=== PATIENT | female | born 1960 | race Caucasian/White ===

== ENCOUNTER 2021-03-03 10:07 | Outpatient (CLI) | payer OTHER, SELFPAY ==
--- NOTE | ~2021-03-03 | CT_ITS ---
EXAMINATION: CT abdomen pelvis wo con DATE: 03/03/2021 10:39 INDICATION: Unspecified abdominal pain. TECHNIQUE: Computed tomography (CT) of the abdomen and pelvis was performed without intravenous contr ast. Automated exposure control and iterative reconstruction technique were employed. The dose-length product was 1504.31 mGy-cm. COMPARISON: None FINDINGS: Calcified right lower lobe nodule consistent with old granulomatous disease. Heart size is normal. At herosclerotic coronary artery calcification. No pericardial or pleural effusion. Moderate-sized slidi ng-type hiatal hernia. Gallbladder is not visualized and likely surgically absent. Liver, spleen, hastings creas, bilateral adrenal glands and kidneys are normal. The appendix is not visualized. No pericecal inflammatory change to suggest acute appendicitis. There is some fatty infiltration of the wall of th e colon most prominent at the cecum. There are few scattered colonic diverticula without adjacent inf lammatory change to suggest diverticulitis. No bowel obstruction. Bladder is normal. The uterus is no t identified and has likely been surgically resected. Bilateral adnexa are unremarkable. No free intr aperitoneal gas or fluid. No pathologically enlarged abdominal or pelvic lymphadenopathy. Mild lumbar levocurvature. 3 mm anterolisthesis L4 on L5 with associated mild disc height loss and severe bilate ral facet osteoarthritis at this level. IMPRESSION: 1. No acute intra-abdominal/pelvic process. 2. Moderate-sized sliding-type hiatal hernia. Reviewed, dictated and finalized at location A.
== END 2021-03-03 10:08 | disposition home or self-care (01) ==
PROVIDERS: PCP Family Medicine; Visit Provider Nurse Practitioner Family
DX: R10.10 Upper abdominal pain, unspecified (principal); R10.30 Lower abdominal pain, unspecified; R19.8 Other specified symptoms and signs involving the digestive system and abdomen
CPT/HCPCS: 74176

== ENCOUNTER 2021-03-15 00:49 | Day surgery (SDC) | payer OTHER, SELFPAY ==
[2021-02-28 14:28] VITALS: BMI 48.2
--- NOTE | 2021-03-14 09:58 | WPDANESEPPF ---
Anes - Initial Pre Proc Eval Procedure: Operation Date: 03/15/21 11:15 Proposed Procedures p Esophagogastroduodenoscopy & Colonoscopy - Ang Padgett MD Date/Time: 03/14/21 09:58 Surgeon: Ang Padgett MD Pre Op Diagnosis: peptic ulcer, FORTINO Patient Data Age: 60 Gender: F Height: 1.63 m Weight: 127.27 kg Allergies Allergy/AdvReac Type Severity Reaction Status Date / Time No Known Allergies Allergy Verified 03/15/21 10:22 Home Medications Medication Instructions Recorded Confirmed Type cholecalciferol (vitamin D3) 25 3,000 unit PO DAILY 06/16/19 03/02/21 History mcg (1,000 unit) capsule levothyroxine 75 mcg tablet 75 mcg PO DAILY #30 tablet 11/22/20 03/02/21 Rx cyanocobalamin (vitamin B-12) 1,000 mcg SUB-Q MONTHLY #3 each 01/29/21 03/02/21 Rx 1,000 mcg/mL injection kit cyclobenzaprine 10 mg tablet 10 mg PO TID PRN #90 tablet 02/08/21 03/02/21 Rx ferrous sulfate, dried 160 mg (50 160 mg PO DAILY 02/09/21 03/02/21 History mg iron) tablet,extended release syringe with needle 3 mL 23 x 1 #20 ea 02/09/21 03/02/21 Rx escitalopram oxalate [Lexapro] 75 mg PO DAILY 02/28/21 03/02/21 History magnesium oxide 400 mg PO DAILY 02/28/21 03/02/21 History omega-3 fatty acids [Fish Oil 2,000 mg PO DAILY 02/28/21 03/02/21 History Concentrate] omeprazole 20 mg PO BID 02/28/21 03/02/21 History quetiapine [Seroquel] 25 mg PO DAILY 02/28/21 03/02/21 History Patient hx anesthesia problems: none Family hx anesthesia problems: none Results Review: All pre-operative results and documents have been reviewed as part of the pre-operative evaluation. [facility]LY [facility] Past Medical History Medical History (Updated 03/14/21 @ 09:59 by Jacques Sierra DO) Abdominal pain Abnormal bowel habits Breast cancer screening by mammogram Chronic depression Dysphagia Fibromyalgia Hyperlipidemia Hypersomnia Hypothyroidism, unspecified Insomnia Iron deficiency anemia, unspecified Labs on 02/11/2021 with iron 34, 7% saturation, and ferritin 4 with hemoglobin 11.1 Irritable bowel syndrome with constipation and diarrhea Lower abdominal pain Peptic ulcer disease Polyp of colon Tobacco use disorder, continuous Upper abdominal pain Surgical History Surgical History (Updated 03/14/21 @ 09:59 by Jacques Sierra DO) History of appendectomy History of cholecystectomy Family History Family History Father Diabetes mellitus, Onset Age: 79 Cerebrovascular accident, Onset Age: 79 Sibling Family history of suicide, Onset Age: 42 Mother Acute myocardial infarction, Onset Age: 79 Grandparent Acute myocardial infarction, Onset Age: 80 Social History Social History Years smoked: 45 Smoking status: Current every day smoker Tobacco type: cigarettes Alcohol intake: current Alcohol use details: socially Substance use: never Substance use type: does not use Living arrangements: with family Spiritual care concerns: No Anes - Eval Final PreProcedure Day of Procedure 03/14/21 09:58 Patient weight: morbidly obese Heart: regular rate and rhythm Lungs: clear to auscultation and normal air movement Airway: Mallampati scale class II Neurological: alert and oriented Last oral intake: >/= 8 hours ASA classification: III Emergent: no Anesthetic plan: proceed Anesthesia type and monitoring: general GIVS and standard monitoring Results Review: All pre-operative results and documents have been reviewed as part of the pre-operative evaluation. Informed Consent: The patient's anesthetic plan and its attendant risks and benefits were discussed with the patient/family/POA. Questions were solicited and answers provided to the satisfaction of the patient/family/POA.
[2021-03-15 10:23] VITALS: BP 152/102; PULSE 87; RESP 20; TEMP 37.2; O2SAT 96
[2021-03-15] MEDS: LACTATED RINGERS 1,000 ML 150 ML IV CONT (10:38)
--- NOTE | 2021-03-15 10:54 | PM.HPGS ---
History of Present Illness History of Present Illness Consent: Risks, benefits, and alternatives have been discussed and questions answered. Patient agrees to proceed with procedure. Chief complaint: peptic ulcer, FORTINO Narrative: Mahi Mcgovern is a 60 year old female with lower abdomen and intermittent blood in stools (h/o hemorrhoids), also GERD on omeprazole bid and alternating constipation and diarrhea. Recent CT scan only hiatal hernia, also has FORTINO. Had egd and colonoscopy about 8 years ago. Review of Systems Constitutional: Constitutional: Denies headache(s) and Denies weakness Eyes: Eyes: Denies blurry vision ENT: Reports Normal hearing present, Denies headache(s) and Denies neck pain Cardiovascular: Cardiovascular: Denies chest pain and Denies dyspnea Respiratory: Respiratory: Denies dyspnea Gastrointestinal: Gastrointestinal: Reports no additional gastrointestinal complaints Genitourinary: Genitourinary: Denies dysuria Musculoskeletal: Musculoskeletal: Denies neck pain Integumentary/Breasts: Skin/Breast: Denies dry skin Neurologic: Reports Normal hearing present, Denies headache(s) and Denies weakness Psychiatric: Psychiatric: Denies anxiety Endocrine: Endocrine: Denies change in body appearance Hematologic/Lymphatic: Hematologic/Lymphatic: Denies easy bleeding Allergic/Immunologic: Allergic/Immunologic: Denies urticaria PMFSH Past Medical History Medical History (Updated 03/14/21 @ 09:59 by Jacques Sierra DO) Abdominal pain Abnormal bowel habits Breast cancer screening by mammogram Chronic depression Dysphagia Fibromyalgia Hyperlipidemia Hypersomnia Hypothyroidism, unspecified Insomnia Iron deficiency anemia, unspecified Labs on 02/11/2021 with iron 34, 7% saturation, and ferritin 4 with hemoglobin 11.1 Irritable bowel syndrome with constipation and diarrhea Lower abdominal pain Peptic ulcer disease Polyp of colon Tobacco use disorder, continuous Upper abdominal pain Surgical History Surgical History (Updated 03/14/21 @ 09:59 by Jacques Sierra DO) History of appendectomy History of cholecystectomy Family History Family History Father Diabetes mellitus, Onset Age: 79 Cerebrovascular accident, Onset Age: 79 Sibling Family history of suicide, Onset Age: 42 Mother Acute myocardial infarction, Onset Age: 79 Grandparent Acute myocardial infarction, Onset Age: 80 Social History Social History Years smoked: 45 Smoking status: Current every day smoker Tobacco type: cigarettes Alcohol intake: current Alcohol use details: socially Substance use: never Substance use type: does not use Living arrangements: with family Spiritual care concerns: No Meds Home Medications and Allergies Home Medications Medication Instructions Recorded Confirmed Type cholecalciferol (vitamin D3) 25 3,000 unit PO DAILY 06/16/19 03/02/21 History mcg (1,000 unit) capsule levothyroxine 75 mcg tablet 75 mcg PO DAILY #30 tablet 11/22/20 03/02/21 Rx cyanocobalamin (vitamin B-12) 1,000 mcg SUB-Q MONTHLY #3 each 01/29/21 03/02/21 Rx 1,000 mcg/mL injection kit cyclobenzaprine 10 mg tablet 10 mg PO TID PRN #90 tablet 02/08/21 03/02/21 Rx ferrous sulfate, dried 160 mg (50 160 mg PO DAILY 02/09/21 03/02/21 History mg iron) tablet,extended release syringe with needle 3 mL 23 x 1 #20 ea 02/09/21 03/02/21 Rx escitalopram oxalate [Lexapro] 75 mg PO DAILY 02/28/21 03/02/21 History magnesium oxide 400 mg PO DAILY 02/28/21 03/02/21 History omega-3 fatty acids [Fish Oil 2,000 mg PO DAILY 02/28/21 03/02/21 History Concentrate] omeprazole 20 mg PO BID 02/28/21 03/02/21 History quetiapine [Seroquel] 25 mg PO DAILY 02/28/21 03/02/21 History Allergies Allergy/AdvReac Type Severity Reaction Status Date / Time No
[2021-03-15] MEDS: BENZOCAINE (*SP) 60 ML SPRAY CAN (HURRICAINE) 1 SPRAY MUCOUS MEM (10:58)
[2021-03-15 11:35] VITALS: BP 147/83; PULSE 79; RESP 26; O2SAT 98
[2021-03-15 11:45] VITALS: BP 147/90; PULSE 83; RESP 24; O2SAT 95
[2021-03-15 11:55] VITALS: BP 130/96; PULSE 74; RESP 22; O2SAT 100
--- NOTE | 2021-03-15 12:28 | SUR.PHASEII ---
1200 patient ready to go home, awaiting Dr. Magana to see patient post procedure
== END 2021-03-15 12:25 | disposition home or self-care (01) ==
PROVIDERS: PCP Family Medicine; Visit Provider Internal Medicine Gastroenterology
PROC: 0DJ08ZZ Inspection of Upper Intestinal Tract, Via Natural or Artificial Opening Endoscopic (ICD-10-PCS; CPT 43235; principal; 2021-03-15 11:15)
DX: R10.30 Lower abdominal pain, unspecified (principal); K44.9 Diaphragmatic hernia without obstruction or gangrene; R19.7 Diarrhea, unspecified; K59.00 Constipation, unspecified; K62.89 Other specified diseases of anus and rectum; K64.4 Residual hemorrhoidal skin tags; K21.00 Gastro-esophageal reflux disease with esophagitis, without bleeding; K63.5 Polyp of colon; Z87.11 Personal history of peptic ulcer disease; K29.60 Other gastritis without bleeding; D50.9 Iron deficiency anemia, unspecified; E03.9 Hypothyroidism, unspecified; F32.9 Major depressive disorder, single episode, unspecified; M79.7 Fibromyalgia; E78.5 Hyperlipidemia, unspecified; G47.10 Hypersomnia, unspecified; K58.2 Mixed irritable bowel syndrome; F17.210 Nicotine dependence, cigarettes, uncomplicated; E66.01 Morbid (severe) obesity due to excess calories; Z68.43 Body mass index [BMI] 50.0-59.9, adult
CPT/HCPCS: 45385; 43239; 88305; J2001; J2704; J7120

== ENCOUNTER 2021-05-16 09:16 | Outpatient (RCR) | payer OTHER, SELFPAY ==
[2021-05-16] MEDS: FAMOTIDINE 20 MG TABLET PO (15:52)
[2021-05-16] MEDS: diphenhydrAMINE HCl CAP 25 MG CAPSULE PO (15:53)
[2021-05-16] MEDS: ACETAMINOPHEN 325 MG TABLET 650 MG PO (15:53)
[2021-05-16 15:54] VITALS: BP 148/98; PULSE 87; RESP 18; O2SAT 97
[2021-05-16 16:52] VITALS: BP 142/97
== END 2021-05-16 17:00 | disposition home or self-care (01) ==
LOC: AMCINF 09:16
PROVIDERS: PCP Family Medicine; Visit Provider Internal Medicine Hematology & Oncology
DX: U07.1 COVID-19 (principal)
CPT/HCPCS: A9270; M0243; Q0244

== ENCOUNTER → 2021-07-25 15:34 | Outpatient (CLI) | payer OTHER, SELFPAY ==
--- NOTE | ~2021-07-25 | XR_ITS ---
EXAMINATION: XR wrist RT min 3V DATE: 07/25/2021 15:58 INDICATION: Right wrist pain. TECHNIQUE: 4 views of right wrist were obtained. COMPARISON: None. FINDINGS: Bone alignment is normal. No fracture. There is severe osteoarthritis of first carpometacar pal joint with loose bodies. IMPRESSION: 1. Severe osteoarthritis of first carpometacarpal joint with loose bodies. Reviewed, dictated and finalized at location A. 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
--- NOTE | ~2021-07-25 | XR_ITS ---
EXAMINATION: XR shoulder LT min 2V EXAM DATE: 07/25/2021 15:57 INDICATION: M25.512 - Pain in left shoulder/fell Jul 15 . TECHNIQUE: The following left shoulder projections obtained: frontal projection with internal rotatio n, frontal projection with external rotation, Grashey, and axillary (4+ views). There is no prior st udy for comparison. FINDINGS: There is possible subacute closed posttraumatic nondisplaced left clavicular shaft fracture at its distal 3rd. No angulation. Mild acromioclavicular joint osteoarthritis. IMPRESSION: Left clavicular shaft contoured disruption appearance suspicious for subacute nondisplac ed fracture. Reviewed, dictated and finalized at location A. 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
== END ==
LOC: EXPTRAD 15:37
PROVIDERS: PCP Family Medicine; Visit Provider Family Medicine
DX: M25.531 Pain in right wrist (principal); M19.012 Primary osteoarthritis, left shoulder; M24.08 Loose body, other site; M18.11 Unilateral primary osteoarthritis of first carpometacarpal joint, right hand
CPT/HCPCS: 73030; 73110

== ENCOUNTER 2021-08-03 08:29 | Outpatient (CLI) | payer OTHER, SELFPAY ==
--- NOTE | ~2021-08-03 | XR_ITS ---
EXAMINATION: XR barium swallow modified DATE: 08/03/2021 09:11 INDICATION: Vomiting while eating. TECHNIQUE: The patient was given barium-containing material of multiple consistencies to swallow by t ahsan speech pathologist while I performed fluoroscopy. Fluoroscopy exposure time was 1.2 minutes minute s. The number of fluoroscopy images saved to the PACS was 1. Dose-area product was 1.057 Gy-cm^2. FINDINGS: There was flash laryngeal penetration. No aspiration. IMPRESSION: 1. Flash laryngeal penetration. No aspiration. 2. Please refer to the speech therapy report for recommendations. Reviewed, dictated and finalized at location A.
--- NOTE | 2021-08-03 10:57 | STOPEVAL ---
MODIFIED BARIUM SWALLOW EVALUATION: Thank you for referring Mahi Mcgovern to [facility].? Attending Provider: Farhan Irene MD fax: [phone] Modified Barium Swallow Evaluation Recent Swallowing History Reports Dysphagia Yes: food gets stuck Onset of Dysphagia few weeks History of Dysphagia No Other Related History recent intubation Other Factors Impacting Dysphagia None History of Pneumonia Yes: from recent vomit aspiration Reported Difficult Consistencies Solids Intake Method Prior to Swallow Oral Evaluation Diet Prior to Swallow Evaluation Regular, Level 7 Liquid Consistency Prior to Swallow Thin (0) Evaluation Consistency Thin Uncontrolled 2 Method of Presentation Straw Oral Preparatory Symptoms None Oral Phase Symptoms None Pharyngeal Phase Symptoms None Severity of Vallecular Residue None - 0% No Residue Severity of Pyriform Sinus Residue None - 0% No Residue 8 Point Laryngeal Penetration-Aspiration Material Does Not Enter Airway Scale Cervical/Esophageal Symptoms None Thin Uncontrolled 1 Method of Presentation Cup Oral Preparatory Symptoms None Oral Phase Symptoms None Pharyngeal Phase Symptoms Within Functional Limits, Laryngeal Penetration Severity of Vallecular Residue None - 0% No Residue Severity of Pyriform Sinus Residue None - 0% No Residue 8 Point Laryngeal Penetration-Aspiration Material Enters the Airway, Scale Remains Above Vocal Folds, is Ejected Cervical/Esophageal Symptoms None Solid Consistency Method of Presentation Spoon Oral Preparatory Symptoms None Oral Phase Symptoms None Pharyngeal Phase Symptoms None Severity of Vallecular Residue None - 0% No Residue Severity of Pyriform Sinus Residue None - 0% No Residue 8 Point Laryngeal Penetration-Aspiration Material Does Not Enter Airway Scale Cervical/Esophageal Symptoms None Mixed Consistency Method of Presentation Spoon Oral Preparatory Symptoms None Oral Phase Symptoms None Pharyngeal Phase Symptoms None Severity of Vallecular Residue None - 0% No Residue Severity of Pyriform Sinus Residue None - 0% No Residue 8 Point Laryngeal Penetration-Aspiration Material Does Not Enter Airway Scale Cervical/Esophageal Symptoms None Pureed Consistency Method of Presentation Spoon Oral Preparatory Symptoms None Oral Phase Symptoms None Pharyngeal Phase Symptoms None Severity of Vallecular Residue None - 0% No Residue Severity of Pyriform Sinus Residue None - 0% No Residue 8 Point Laryngeal Penetration-Aspiration Material Does Not Enter Airway Sc
== END 2021-08-03 08:30 | disposition home or self-care (01) ==
PROVIDERS: PCP Family Medicine; Visit Provider Family Medicine
DX: R13.10 Dysphagia, unspecified (principal)
CPT/HCPCS: 92611

== ENCOUNTER 2021-08-07 08:34 | Outpatient (CLI) | payer OTHER, SELFPAY ==
--- NOTE | 2021-08-08 11:01 | P.NEURO_ITS ---
Neurology EEG Report General Information Date of Study: 08/07/21 TEST eeg DIAGNOSIS syncope with collapse and aspiration CONDITION OF RECORDING awake, drowsy and sleep EEG NUMBER [id number] CLINICAL HISTORY patient reported ,she lost consciousness about 3 weeks ago. Was feeling fine and went in to bathroom, subsequently woke up 2 days later in the hospital. Was told she aspirated and was on a vent for 2 days. EEG DESCRIPTION basic resting occipital frequency consists of low to medium voltage 9 to 11 hertz per 2nd alpha admixed with low-voltage 15 to 18 hertz per 2nd beta. Low- voltage beta activity seen diffusely during drowsiness. Bilateral symmetrical sleep activity seen, during sleep. photic stimulation produced normal drive. Non paroxysmal. Nonfocal. Nonlateralizing. IMPRESSION Normal record
== END 2021-08-07 08:35 | disposition home or self-care (01) ==
PROVIDERS: PCP Family Medicine; Visit Provider Family Medicine
DX: R55 Syncope and collapse (principal)
CPT/HCPCS: 95816

== ENCOUNTER 2021-08-08 12:03 | Outpatient (CLI) | payer OTHER, SELFPAY ==
--- NOTE | ~2021-08-08 | MR_ITS ---
EXAMINATION: MR brain/brain stem wo/w con EXAM DATE: 08/08/2021 12:48 INDICATION: R55 - Syncope and collapse. TECHNIQUE: Magnetic resonance imaging (MRI) of the brain/brain stem obtained without contrast. Sagit reece T1, axial diffusion, gradient echo (T2*), T1, T2, FLAIR sequences obtained. Patient was then inj ected with 20 cc intravenous Multihance contrast. Axial and coronal postcontrast T1 weighted sequence s obtained. There is no prior study for comparison. FINDINGS: There are no areas of restricted diffusion to suggest acute infarction. There is no acute hemorrhage seen on the T2*, a hemosiderin sensitive sequence. No intraparenchymal brain mass. The ve ntricles are normal in size. There are no extra-axial collections. Flow voids are seen in the cereb ral arteries on the T2-weighted sequences consistent with their expected patency. The orbits are unr emarkable. Soft tissue is unremarkable. There are no areas of abnormal enhancement on the postcont rast images. IMPRESSION: Unremarkable brain MRI examination. Reviewed, dictated and finalized at location G.
[2021-08-08 12:36] LABS: Estimated Glomerular Filt Rate > 60
== END 2021-08-08 12:04 ==
LOC: MICIMG 12:04
PROVIDERS: PCP Family Medicine; Visit Provider Family Medicine
DX: R55 Syncope and collapse (principal)
CPT/HCPCS: 70553; A9577

== ENCOUNTER → 2021-10-24 09:23 | Outpatient (CLI) | payer MEDICARE, SELFPAY ==
--- NOTE | ~2021-10-24 | CT_ITS ---
CT OF RIGHT HAND EXAMINATION: CT hand RT wo con DATE: 10/24/2021 09:41 INDICATION: Right wrist pain. TECHNIQUE: Computed tomography (CT) of the right hand was performed without intravenous contrast. Aut omated exposure control and iterative reconstruction technique were employed. The dose-length product was 115.49 mGy-cm. COMPARISON: X-ray right wrist 07/25/2021. FINDINGS: Limitations: None Bones: Mildly decreased mineralization. Moderate narrowing and subchondral sclerosis with severe oste ophytosis at the trapeziometacarpal joint. Joint space narrowing and sclerosis in the interphalangeal joints of the fingers. No acute fracture or dislocation. Soft Tissues:The soft tissues appear within normal limits. No evidence of mass or fluid collection. The flexor and extensor tendons appear intact. Fluid: No significant joint fluid fluid. IMPRESSION: Severe right trapeziometacarpal joint osteoarthritis. Mild-moderate osteoarthritic change in the righ t fingers. Reviewed, dictated and finalized at location K. IMPRESSION: Severe right trapeziometacarpal joint osteoarthritis. Mild-moderate osteoarthri tic change in the right fingers.
== END ==
PROVIDERS: PCP Family Medicine; Visit Provider Nurse Practitioner
DX: M19.031 Primary osteoarthritis, right wrist (principal)
CPT/HCPCS: 73200

== ENCOUNTER → 2022-01-16 10:03 | Outpatient (CLI) | payer OTHER, SELFPAY ==
--- NOTE | ~2022-01-16 | XR_ITS ---
XR chest 2V DATE: 01/16/2022 10:21 INDICATION: Cough for 6 months. Ex-smoker. TECHNIQUE: Frontal and lateral views COMPARISON: None FINDINGS: Normal heart size. No hilar or mediastinal enlargement. There is old pulmonary granulomatou s disease. No pulmonary infiltrate or consolidation, pleural effusion or pulmonary vascular congestio n or pneumothorax is detected. Mild to moderate hiatal hernia is suggested. IMPRESSION: No active cardiopulmonary disease Hiatal hernia Reviewed, dictated and finalized at location B.
== END ==
PROVIDERS: PCP Family Medicine; Visit Provider Nurse Practitioner Family
DX: R05.9 Cough, unspecified (principal); K44.9 Diaphragmatic hernia without obstruction or gangrene
CPT/HCPCS: 71046

== ENCOUNTER 2022-02-02 13:34 | Outpatient (CLI) | payer OTHER, SELFPAY ==
--- NOTE | 2022-02-05 14:13 | WPDPFTINT ---
PFT Procedure Performed PFT Procedure Performed Spirometry with Pre/Post Bronchodilator Plethysmography (Lung Vol) Diffusing Cap (DLCO) Flow Vol Loop PFT Interpretation This is a pulmonary function test with pre and post-bronchodilator spirometry, plethysmography and diffusing capacity. The test was performed and results interpreted in accordance with the 2019 and 2005 ATS/ERS Task Force guidelines respectively using the Global Lung Function Initiative-2012 reference equations. Patient demonstrated good effort and cooperation. Reproducibility criteria were met. The quality of the pre bronchodilator spirometry maneuver was Grade A and post bronchodilator spirometry maneuver was Grade A. Findings: Spirometry: The contour the inspiratory and expiratory flow tracing are normal. The pre bronchodilator FVC is 3.48, 108% predicted. The pre bronchodilator FEV1 is 2.76 L, 109% predicted. The pre bronchodilator FEV1: FVC ratio is 79% predicted. The post bronchodilator FVC is 3.66 L, representing a 5% increase. The post bronchodilator FEV1 is 2.95 L, representing a 7% increase. The post bronchodilator FEV1: FVC ratio was 81%. Plethysmography: The total lung capacity is 6.10 L, 120% predicted. Functional residual capacity is 2.90 L, 101% predicted. The residual volume is 2.58 L, 131% predicted. Diffusion capacity: The diffusion capacity unadjusted for hemoglobin and carboxyhemoglobin is 18.1, 83% predicted. The diffusing capacity adjusted for alveolar volume is 3.72, 83% predicted. Impression: The spirometry is normal without evidence of an obstructive abnormality. There is no significant improvement after inhaling a single dose of albuterol. The lung volumes are normal. The diffusing capacity is normal. There are no prior studies for comparison
== END 2022-02-02 13:35 | disposition home or self-care (01) ==
LOC: ANHPFT 13:36
PROVIDERS: PCP Family Medicine; Visit Provider Family Medicine
DX: R06.00 Dyspnea, unspecified (principal); R05.9 Cough, unspecified; R07.9 Chest pain, unspecified; Z86.16 Personal history of COVID-19; Z87.891 Personal history of nicotine dependence
CPT/HCPCS: 94060; 94726; 94729

== ENCOUNTER 2022-02-08 07:37 | Outpatient (CLI) | payer OTHER, SELFPAY ==
--- NOTE | 2022-02-08 07:47 | ECHO_ITS ---
Patient Info Name: Mahi Mcgovern Age: 61 years : 1960 Gender: Female Ht: 64 in Wt: 300 lbs BSA: 2.56 m2 HR: 77 bpm BP: 193 / 107 mmHg Technical Quality: Good Exam Date: 02/08/2022 8:22 AM Exam Location: [facility] Patient Status: Outpatient Admit Date: 02/08/2022 Staff Ordering Physician: Viridiana Stark NP Central Supply Worker: Scott Araujo RDCS, RT Attending Provider: Farhan Irene MD Exam Type: CA echo doppler color flow Study Info Indications R07.9 - Chest pain, unspecified Complete two-dimensional, color flow and Doppler transthoracic echocardiogram is performed. Strain analysis performed. Summary 1. Complete two-dimensional, color flow and Doppler transthoracic echocardiogram is performed. 2. Left ventricular chamber dimension is normal. 3. There is mild-moderate concentric increased left ventricular wall thickness. 4. Left ventricular systolic function is normal, estimated at 60-65%. 5. The left ventricular diastolic function is grade I diastolic dysfunction. 6. E/e' 5 is not elevated. 7. Global longitudinal strain is abnormal at -14.7%. 8. There is trace tricuspid valve regurgitation. Left Ventricle E/e' 5 is not elevated. Global longitudinal strain is abnormal at -14.7%. There is mild-moderate concentric increased left ventricular wall thickness. Left ventricular chamber dimension is normal. Left ventricular systolic function is normal, estimated at 60-65%. The left ventricular diastolic function is grade I diastolic dysfunction. Right Ventricle Right ventricular systolic function is normal and with normal TAPSE 2.2 cm. Right ventricular chamber dimension is normal. Left Atria Left atrial chamber dimension is normal. Right Atria Right atrial chamber dimension is normal. Aortic Valve The aortic valve is trileaflet. There is no aortic valve stenosis. There is no aortic valve regurgitation. Pulmonic Valve There is no pulmonic regurgitation. Mitral Valve There is no mitral valve stenosis. There is no mitral valve regurgitation. Tricuspid Valve There is trace tricuspid valve regurgitation. RVSP is not calculated due to an inadequate TR jet. Pericardium/Pleural There is no pericardial effusion. Inferior Vena Cava Normal inferior vena cava with >50% collapse upon inspiration consistent with normal right atrial pressure, 5 mmHg. Aorta The aortic root size at the sinus of Valsalva is normal. Left Ventricular Outflow Tract Name Value Normal LVOT 2D LVOT Diameter 2.1 cm LVOT Doppler LVOT Peak Gradient 4 mmHg LVOT Mean Gradient 2 mmHg LVOT VTI 17 cm LVOT VTI/AV VTI Ratio 0.7 LVOT Stroke Volume 60 ml LVOT CO 4.8 l/min LVOT CI 1.9 l/min/m2 Mitral Valve Name Value Normal
--- NOTE | 2022-02-08 07:47 | ECG_ITS ---
Measurements Intervals [place] Rate: 75 P: 51 ND: 163 QRS: 6 QRSD: 89 T: 14 QT: 382 QTc: 427 Interpretive Statements SINUS RHYTHM INFERIOR INFARCT, AGE INDETERMINATE ABNORMAL ECG NO PREVIOUS ECG AVAILABLE FOR COMPARISON Electronically Signed On 02-08-2022 8:59:13 CDT by John Kay D.O.
--- NOTE | 2022-02-08 07:47 | EST_ITS ---
Patient Info Name: Mahi Mcgovern Age: 61 years : 1960 Gender: Female Ht: 64 in Wt: 300 lbs BSA: 2.56 m2 Exam Date: 02/08/2022 9:06 AM Exam Location: [facility] Stress Patient Status: Outpatient Admit Date: 02/08/2022 Staff Ordering Physician: Viridiana Stark NP Attending Provider: Farhan Irene MD Exercise Technologist: China Gonzalez RDCS Exercise Physician: John Kay DO Exam Type: CA stress test treadmill Study Info Indications R42 - Dizziness and giddiness R07.9 - Chest pain, unspecified A treadmill exercise stress test was performed. Summary 1. 1. Negative Curt exercise stress test for ischemic ST changes by ECG criteria. 2. 2. Reduced functional capacity, achieving 6.5 METs of workload. 3. 3. Appropriate HR response to exercise. 4. 4. Appropriate HR recovery at 1 minute post exercise. 5. 5. No imaging with stress testing. 6. 6. Patient informed of the above results. Protocol: Curt Stress ECG Details Stage: REST Duration (min): 1 min : 9 sec Speed (mph): 0.0 Grade (%): 0 HR (bpm): 77 SBP (mmHg): 134 DBP (mmHg): 92 METS: --- Stage: REST Duration (min): 13 min : 54 sec Speed (mph): 0.0 Grade (%): 0 HR (bpm): 81 SBP (mmHg): 134 DBP (mmHg): 92 METS: --- Stage: STAGE 1 Duration (min): 1 min : 0 sec Speed (mph): 1.7 Grade (%): 10 HR (bpm): 110 SBP (mmHg): 134 DBP (mmHg): 92 METS: --- Stage: STAGE 1 Duration (min): 2 min : 0 sec Speed (mph): 1.7 Grade (%): 10 HR (bpm): 119 SBP (mmHg): 134 DBP (mmHg): 92 METS: --- Stage: STAGE 1 Duration (min): 3 min : 0 sec Speed (mph): 1.7 Grade (%): 10 HR (bpm): 125 SBP (mmHg): 170 DBP (mmHg): 108 METS: --- Stage: STAGE 2 Duration (min): 1 min : 0 sec Speed (mph): 2.5 Grade (%): 12 HR (bpm): 131 SBP (mmHg): 170 DBP (mmHg): 108 METS: --- Stage: STAGE 2 Duration (min): 1 min : 3 sec Speed (mph): 2.5 Grade (%): 12 HR (bpm): 131 SBP (mmHg): 170 DBP (mmHg): 108 METS: --- Stage: RECOVERY Duration (min): 0 min : 56 sec Speed (mph): 0.0 Grade (%): 0 HR (bpm): 125 SBP (mmHg): 158 DBP (mmHg): 89 METS: --- Stage: RECOVERY Duration (min): 1 min : 56 sec Speed (mph): 0.0 Grade (%): 0 HR (bpm): 108 SBP (mmHg): 158 DBP (mmHg): 89 METS: --- Stage: RECOVERY Duration (min): 2 min : 56 sec Speed (mph): 0.0 Grade (%): 0 HR (bpm): 101 SBP (mmHg): 181 DBP (mmHg): 84 METS: --- Stage: RECOVERY Duration (min): 3 min : 56 sec Speed (mph): 0.0 Grade (%): 0 HR (bpm): 94 SBP (mmHg): 181 DBP (mmHg): 84 METS: --- Stage: RECOVERY Duration (min): 4 min : 56 sec Speed (mph): 0.0 Grade (%): 0 HR (bpm): 93 SBP (mmHg): 149 DBP (mmHg): 62 METS: --- Stage: RECOVERY Du
== END 2022-02-08 07:38 | disposition home or self-care (01) ==
LOC: ANHCARD 07:39
PROVIDERS: PCP Family Medicine; Visit Provider Family Medicine
DX: R07.9 Chest pain, unspecified (principal); R06.00 Dyspnea, unspecified; R42 Dizziness and giddiness; R68.89 Other general symptoms and signs; R94.31 Abnormal electrocardiogram [ECG] [EKG]
CPT/HCPCS: 93005; 93017; 93306

== ENCOUNTER 2022-03-13 07:55 | Outpatient (CLI) | payer OTHER, SELFPAY ==
--- NOTE | ~2022-03-13 | NM_ITS ---
EXAMINATION: NM pulmonary perfusion DATE: 03/13/2022 09:24 INDICATION: Dyspnea on exertion TECHNIQUE: 5.5 mCi Tc-99m MAA by intravenous route. Scintigraphic images of the chest were obtained. COMPARISON: FINDINGS: There is relatively homogeneous perfusion throughout the lungs. No discrete perfusion defects identi fied. IMPRESSION: 1. Low probability for pulmonary embolism. Reviewed, dictated and finalized at location A.
--- NOTE | ~2022-03-13 | XR_ITS ---
EXAMINATION: XR chest 2V 03/13/2022 09:26 INDICATION: Shortness of breath PROCEDURE: PA and lateral views of the chest COMPARISON: 01/16/2022 FINDINGS: The lungs are clear. The cardiomediastinal silhouette is within normal limits. There are no pleural effusions. There is no pneumothorax suspected. Moderate size hiatal hernia. There are ca lcified granulomas in the right lung base. IMPRESSION: 1: NO ACUTE CARDIOPULMONARY DISEASE. Reviewed, dictated and finalized at location B.
--- NOTE | 2022-03-13 09:46 | PCRCNOTE ---
Patient arrived for methacholine challenge testing, but had taken Advair 24 hours prior to test time, this medication must be held minimum 36 hours. Rescheduled testing for 03-19-22 at 1300
== END 2022-03-13 07:56 | disposition home or self-care (01) ==
LOC: ANHPFT 07:57
PROVIDERS: PCP Family Medicine; Visit Provider Internal Medicine Pulmonary Disease
DX: R06.00 Dyspnea, unspecified (principal)
CPT/HCPCS: 71046; 78580; A9540; J7674

== ENCOUNTER 2022-03-19 12:34 | Outpatient (CLI) | payer OTHER, SELFPAY ==
--- NOTE | 2022-03-20 10:11 | WPDMETH ---
Methacholine Procedure Perform Procedure Performed Methacholine Challenge Methacholine Challenge Methacholine Challenge: Methacholine challenge testing was performed with progressively increasing doses of nebulized methacholine according to ATS/ERS 2017 guidelines. Following administration of 29.03 mcg of nebulized methacholine (level 3 provocative dose), the measured FEV1 decreased by approximately 30% from the baseline measurement. Post administration of nebulized short-acting bronchodilator, the FEV1 returned back to near baseline value. Impression: Positive methacholine challenge testing. Mild airway hyperresponsiveness.
== END 2022-03-19 12:35 | disposition home or self-care (01) ==
LOC: ANHPFT 12:37
PROVIDERS: PCP Family Medicine; Visit Provider Internal Medicine Pulmonary Disease
DX: R06.02 Shortness of breath (principal); R94.2 Abnormal results of pulmonary function studies
CPT/HCPCS: 94070; J7674

== ENCOUNTER 2022-05-22 10:08 | Outpatient (CLI) | payer OTHER, SELFPAY ==
--- NOTE | ~2022-05-22 | CT_ITS ---
EXAMINATION:CT chest high resolution wo oh DATE: 05/22/2022 10:28 INDICATION: Dyspnea. Personal history of COVID-19 pneumonia. TECHNIQUE: Computed tomography (CT) of the chest was performed without intravenous contrast. Automate d exposure control and iterative reconstruction technique were employed. The dose-length product (DLP ) was 759.52 mGy-cm. COMPARISON: Chest 2 views 03/13/2022 FINDINGS: A calcified right lung nodule and calcified right hilar lymph nodes are consistent with old granulomatous disease. There is no bronchiectasis or honeycombing. There is mild peripheral septal t hickening in the right posterior costophrenic angle. The heart size is normal. There are coronary art jad calcifications. No pericardial effusion. There is a moderate-sized sliding hiatal hernia. There i s mild thoracic spondylosis. IMPRESSION: 1. Mild atelectasis versus chronic interstitial lung disease in right posterior costophrenic angle. 2. Moderate-sized sliding hiatal hernia. Reviewed, dictated and finalized at location A. ERVATION COORDINATOR
== END 2022-05-22 10:09 ==
LOC: MICIMG 10:10
PROVIDERS: PCP Family Medicine; Visit Provider Internal Medicine Pulmonary Disease
DX: R06.00 Dyspnea, unspecified (principal); J69.0 Pneumonitis due to inhalation of food and vomit; Z86.16 Personal history of COVID-19; R91.8 Other nonspecific abnormal finding of lung field; K44.9 Diaphragmatic hernia without obstruction or gangrene
CPT/HCPCS: 71250

== ENCOUNTER 2022-07-16 12:30 | Outpatient (RCR) | payer OTHER, SELFPAY ==
--- NOTE | 2022-07-09 16:11 | STOPEVAL1 ---
Assessment and note entered by Purvi Pedroza, ACCOUNTING POLICY CONSULTANT Evaluation Information Assessment Status Evaluation Diagnosis Dysphonia Onset 07/11 Subjective Information The patient reports that she was told her vocal cords were swollen and her vocal box compensated and now I need speech. Patient reports she had an episode of COVID in 03/09, and then again in 05/09. She stated that on July 15, she had been out with friends and had two drinks; she then passed out in a bathroom and at some point, vomited with possible aspiration. She was then ventilated on the way to the emergency room and remained ventilated on Saturday. Patient reports now she feels that she sounds raspy all the time and I didn't used to sound like. Patient stated that she was having difficulty breathing and approximately six months ago, she was diagnosed with COVID induced asthma and is using Advair 500 one puff twice a day and also a rescue inhaler prior to exertion such as walking through a store. Reported Pain Level Pain Score 0: Self Report Assessment ST Clinical Summary VOICE EVALUATION This patient was seen for a Voice Evaluation at the request of her physician. Patient see above notes for history and complaints. Patient was presented with a variety of voice evaluation tasks. In general skills were judged to be within normal limits however patient was noted to have a mildly raspy vocal quality today. Additionally, her general vocal loudness during tasks was judged to be slightly higher than expected. Average loudness using sound pressure level meter per voice roni in the Speech Therapy room is judged to be 70-74 decibels, range; patient generally produced speech between 76-78 decibels indicating that it is possible she is over-exerting vocal cords during speech that may be contributing to her vocal cord dysfunction. Pitch ranges were judged to be within normal limits. Patient will be seen once weekly, at her request secondary to work constraints, for four weeks to introduce and instru
--- NOTE | 2022-07-23 11:34 | PCSTNOTE ---
The patient treatment was not able to be completed on 07/23 due to illness. Will plan to continue treatment per plan of care.
--- NOTE | 2022-07-30 08:17 | PCSTNOTE ---
Patient again cancelled, assumed for continued illness.
--- NOTE | 2022-08-06 08:09 | PCSTNOTE ---
Patient cancelled a third time due to illness; this is the week that a re-assessment and progress note would occur; therapist will contact patient to discuss discharge at this time.
--- NOTE | 2022-08-07 16:39 | PCSTNOTE ---
Patient reported that she has suffered esophagitis and has started on several new medications to coat the inside of her esophagus. She will not get scoped until September 10 and wants to wait on direct Speech Therapy until after scoped and when esophageal symptoms subside. She was instructed to ask her physician for a resume order before returning to Speech Therapy.
--- NOTE | 2022-08-13 15:12 | STOPDC ---
Assessment and note entered by Purvi Pedroza, PROCESS COORDINATOR
== END 2022-08-22 10:04 | disposition home or self-care (01) ==
LOC: ANHST 12:30
PROVIDERS: PCP Family Medicine; Visit Provider Otolaryngology
DX: R49.0 Dysphonia (principal)
CPT/HCPCS: 92507; 92524

== ENCOUNTER 2022-07-28 11:43 | Emergency (ER) | payer OTHER, SELFPAY ==
[2022-07-28] VITALS (28 sets, daily range): BP systolic 124–155; BP diastolic 50–91; PULSE 77–115; RESP 15–36; TEMP 36.4; O2SAT 90–100
--- NOTE | ~2022-07-28 | CT_ITS ---
EXAMINATION: CT chest abdomen pelvis w con DATE: 07/28/2022 13:46 INDICATION: Epigastric pain. TECHNIQUE: Computed tomography (CT) of the chest, abdomen, and pelvis was performed with 100 mL Omnip aque-350 intravenous contrast. Automated exposure control and iterative reconstruction technique were employed. The dose-length product was 1963.19 mGy-cm. COMPARISON: Chest CT dated 05/22/[address] abdomen and pelvis dated 03/03/2021 FINDINGS: CHEST CT: Calcified right lower lobe nodule and calcified right hilar and mediastinal lymph nodes consistent wi th old granulomatous disease. No pneumonia, pulmonary edema, pleural effusion or pneumothorax. Heart size is normal. Atherosclerotic coronary artery calcific lesion. No pericardial effusion. Vasculature is normal in caliber with no dissection. No pathologically enlarged thoracic lymphadenopathy. Modera te-sized sliding-type hiatal hernia. There is edematous wall thickening in the mid to distal esophagu s suggestive of reflux esophagitis. Bones are unremarkable. ABDOMEN/PELVIS CT: Gallbladder is nonvisualized and likely surgically absent. The liver, spleen, pancreas, bilateral adr enal glands and kidneys are normal. The appendix is not visualized. There are a few scattered colonic diverticula without adjacent inflammatory change to suggest diverticulitis. No bowel obstruction. Bl adder is normal. The uterus is not identified and has likely been surgically resected. Bilateral adne xa are unremarkable. No free intraperitoneal gas or fluid. No pathologically enlarged abdominal or pe lvic lymphadenopathy. Mild lumbar levocurvature. 3 mm anterolisthesis L4 on L5 with associated mild d isc height loss and severe bilateral facet osteoarthritis at this level. IMPRESSION: 1. Moderate-sized sliding-type hiatal hernia with edematous wall thickening in the mid to distal esop hagus consistent with esophagitis most likely related to reflux. 2. No acute cardiopulmonary disease or acute intra-abdominal/pelvic process. Reviewed, dictated and finalized at location A. OMER SERVICE SALES ASSOCIATE IMPRESSION: 1. Moderate-sized sliding-type hiatal hernia with edematous wall thickening in the mid to distal esophagus consistent with esophagitis most likely related to reflux. 2. No acute cardiopulmonary disease or acute intra-abdominal/pelvic process.
--- NOTE | ~2022-07-28 | XR_ITS ---
EXAMINATION: XR chest 2V DATE: 07/28/2022 13:13 INDICATION: Epigastric pain and esophageal spasm TECHNIQUE: PA and lateral views of the chest were obtained. COMPARISON: Chest radiograph dated 03/13/[address] dated 05/22/2022 FINDINGS: Prominent calcified right lower lobe nodule along with calcified right hilar and mediastinal lymph no rod consistent with old granulomatous disease. No other airspace opacities, pulmonary edema, pleural effusion or pneumothorax. Size is normal. Gas within a moderate-sized hiatal hernia. Mild thoracic sp ondylosis. IMPRESSION: 1. No acute cardiopulmonary disease. 2. Moderate sized hiatal hernia. Reviewed, dictated and finalized at location A. AGE SPECIALIST
--- NOTE | 2022-07-28 12:04 | PC.NURSE ---
Dr. Hayes at bedside to assess pt.
--- NOTE | 2022-07-28 12:10 | ED.GENADULT ---
HPI - General Adult General Chief complaint: Unspecified Stated complaint: PAIN AFTER TAKING BIG DRINK OF WATER Time Seen by Provider: 07/28/22 11:46 History of Present Illness HPI narrative: 61-year-old female presented to the emergency department for evaluation of epigastric and esophageal pain. Patient reports when she woke up this morning to take her morning medication she had a large drink of water and has since had epigastric and esophageal pain. Patient is able to handle her own secretions and does have intermittent pain with swallowing. Patient attempted to drink water in the emergency department and had onset of esophageal pain. Patient denies any shortness of breath. Patient denies any nausea vomiting diarrhea. Related Data Home Medications Medication Instructions Recorded Confirmed cholecalciferol (vitamin D3) 25 3,000 unit PO DAILY 06/16/19 07/19/22 mcg (1,000 unit) capsule omega-3 fatty acids 1,000 mg 2,000 mg PO DAILY 02/28/21 07/19/22 capsule (Fish Oil Concentrate) calcium polycarbophil 625 mg 1,250 mg PO BID 07/19/22 07/19/22 tablet (FiberCon) ferrous sulfate 325 mg (65 mg 325 mg PO DAILY 07/19/22 07/19/22 iron) tablet,delayed release magnesium oxide 500 mg capsule 500 mg PO BID PRN constipation 07/19/22 07/19/22 Allergies Allergy/AdvReac Type Severity Reaction Status Date / Time No Known Allergies Allergy Verified 07/28/22 12:10 Review of Systems Review of Systems: CONSTITUTIONAL: Denies fever, chills, or sweats. EYES: Denies visual changes, redness, or discharge. ENT: Denies rhinorrhea, congestion, sore throat, or otalgia. CARDIOVASCULAR: Denies chest pain, palpitations, or edema. RESPIRATORY: Denies cough or dyspnea. GASTROINTESTINAL: See HPI GENITOURINARY: Denies dysuria or hematuria. SKIN: Denies rash or itching. MUSCULOSKELETAL: Denies back pain, joint pain, or myalgia. NEUROLOGIC: Denies headache, numbness, or weakness. [facility] Past Medical History Medical History (Updated 07/28/22 @ 14:25 by Rick Hayes MD) Abdominal pain Abnormal bowel habits Abnormal fasting glucose (01/16/22) fasting glucose 106 with hemoglobin A1c 5.7 on 01/16/2022. Anemia Aspiration pneumonia (07/15/21) Breast cancer screening by mammogram Chest pain Exercise stress test on 02/08/2022 was negative for ischemia. Transesophageal echocardiogram on 02/08/2022 with LVH and grade 1 diastolic dysfunction. Chronic depression Cough COVID-19 positive rapid test 05/12/2021 COVID-19 long hauler manifesting chronic dyspnea (~05/2021) Dizziness Dysphagia modified barium swallow was normal 08/03/2021 Dyspnea Normal pulmonary function test on 02/02/2022. Fatigue Fibromyalgia History of COVID-19 History of tobacco abuse Hyperlipidemia total cholesterol 208, HDL 66, triglycerides 134, LDL 117 on 01/16/2022. Hypersomnia Hypothyroidism, unspecified TSH 5.03 with free T4 1.0 on 01/16/2022. Insomnia Iron deficiency anemia, unspecified Labs on 02/11/2021 with iron 34, 7% saturation, and ferritin 4 with hemoglobin 11.1. Iron low at 34 with 7% saturation and ferritin 6 on 01/16/2022. Irritable bowel syndrome with constipation and diarrhea Left shoulder pain Lower abdominal pain Morbid obesity with BMI of 50.0-59.9, adult Muscle cramps Peptic ulcer disease History of peptic ulcer disease with normal EGD on 03/15/2021 with 4 cm hiatal hernia. Biopsies obtained Polyp of colon (03/15/21) 12 mm polyp of the cecum on colonoscopy with Dr. Castillo 03/15/2021 with recheck in 3 years. External hemorrhoids noted. Right wrist pain Screening for diabetes mellitus Syncope and collapse (07/15/21) EEG on 08/07/2021 was normal. No seizure activity. MRI of the brain on 08/08/2021 was normal. Thyroid disorder Tobacco use disorder, continuous Patient quit smoking 2021. Ulcers of both great toes Upper abdominal pain Urinary frequency Surgical History Surgical History (Reviewed 06/25/22 @ 09:38 by Jany Ferguson
[2022-07-28] MEDS: NITROGLYCERIN SL 0.4 MG TABLET SUBLINGUAL (12:35)
[2022-07-28] MEDS: HYDROmorphone HCL INJ (*CRX) 1 MG/ML SYR 0.5 MG IV PUSH (12:36)
[2022-07-28] MEDS: BELLADONNA ALK/PHENOB ELIX 10 ML, MAG HYDROX/ALUMINUM HYD/SIMETH 30 ML, LIDOCAINE HCL 2... PO (12:37)
[2022-07-28 12:50] LABS: Basophils Absolute Auto 0.1 K/mm3 (0.0-0.1); Basophils Percent Auto 0.8 % (0.2-1.2); Eosinophils Absolute Auto 0.2 K/mm3 (0-0.3); Eosinophils Percent Auto 1.6 % (0-4.4); Hematocrit 29.1 % (37.0-47.0); Hemoglobin 7.9 g/dL (12.0-15.0); Immature Granulocyte Absolute 0.06 K/mm3 (0.00-0.031); Immature Granulocyte Percent A 0.5 % (0-0.5); Lymphocytes Absolute Auto 0.88 K/mm3 (0.9-3.2); Lymphocytes Percent Auto 6.9 % (18.3-44.2); Mean Corpuscular HGB Conc 27.1 g/dl (32-36); Mean Corpuscular Hemoglobin 18.6 pg (26-34); Mean Corpuscular Volume 68.5 fl (80-100); Monocytes Absolute Auto 0.9 K/mm3 (0.1-0.6); Monocytes Percent Auto 7.1 % (2.6-8.5); Neutrophils Absolute Auto 10.6 K/mm3 (1.3-6.7); Neutrophils Percent Auto 83.1 % (45.5-73.1); Platelet Count Result 596 k/mm3 (150-375); Red Blood Count 4.25 M/mm3 (4.2-5.4); Red Cell Distribution Width 20.7 % (11.5-14.5); White Blood Count 12.7 K/mm3 (4.5-10.0)
[2022-07-28] MEDS: ONDANSETRON INJ 4 MG/2 ML VIAL IV PUSH (12:56)
[2022-07-28 13:00] LABS: Prothrombin Time 12.4 Seconds (11.1-14.7)
[2022-07-28 13:01] LABS: Partial Thromboplastin Time 21.4 SECONDS (22.3-36.8)
--- NOTE | 2022-07-28 13:04 | PC.NURSE ---
Patient off unit to radiology.
[2022-07-28 13:15] LABS: Alanine Aminotransferase 28 U/L (6-35); Albumin Level 4.4 g/dL (3.5-5.1); Alkaline Phosphatase 84 U/L (38-126); Anion Gap 5 mmol/L (8-16); Aspartate Amino Transferase 65 U/L (14-36); Bilirubin,Total 0.8 mg/dL (0.2-1.3); Blood Urea Nitrogen 10 mg/dL (7-17); Calcium 8.8 mg/dL (8.4-10.2); Carbon Dioxide 27 mmol/L (22-30); Chloride 102 mmol/L (98-107); Estimated CRCL calculation 100 ml/min; Estimated Glomerular Filt Rate > 60; Glucose 110 mg/dL (65-110); Potassium 5.2 mmol/L (3.4-5.0); Sodium 134 mmol/L (137-145)
[2022-07-28 13:21] LABS: Platelet Estimate Increased (Adequate)
[2022-07-28 13:22] LABS: Anisocytosis 2+ (NORMAL); Hypochromasia 1+ (NORMAL); Schistocytes None Seen (NORMAL)
--- NOTE | 2022-07-28 13:29 | PC.NURSE ---
Patient off unit to CT.
[2022-07-28] MEDS: SODIUM CHLORIDE 0.9% IV 1,000 ML 999 ML IV CONT (13:45)
== END 2022-07-28 15:33 | disposition home or self-care (01) ==
PROVIDERS: Emergency Provider Emergency Medicine; PCP Family Medicine
DX: K20.90 Esophagitis, unspecified without bleeding (principal); D64.9 Anemia, unspecified; F32.A Depression, unspecified; Z86.16 Personal history of COVID-19; M79.7 Fibromyalgia; E78.5 Hyperlipidemia, unspecified; E03.9 Hypothyroidism, unspecified; Z87.891 Personal history of nicotine dependence
CPT/HCPCS: 36415; 71046; 71260; 74177; 80053; 85025; 85610; 85730; 96361; 96374; 96375; 99284; A9270; J1170; J2405; J7030; Q9967

== ENCOUNTER 2022-11-08 10:07 | Emergency (ER) | payer OTHER, SELFPAY ==
--- NOTE | ~2022-11-08 | XR_ITS ---
Clinical Indication: Dizziness PA and lateral views of the chest: Comparison: 07/28/2022 Findings: Stable calcified granuloma at the right lung base. The lungs are otherwise clear, without e vidence of focal consolidation or pleural effusion. Cardiomediastinal silhouette is within normal li mits. Bones and soft tissues are unremarkable. Impression: No acute abnormality. Reviewed, dictated and finalized at location . Impression: No acute abnormality.
[2022-11-08 10:11] VITALS: BP 153/104; PULSE 91; RESP 18; TEMP 36.8; O2SAT 96
--- NOTE | 2022-11-08 10:48 | ECG_ITS ---
Measurements Intervals Thayer Rate: 78 P: 31 ND: 168 QRS: -7 QRSD: 88 T: 9 QT: 360 QTc: 412 Interpretive Statements SINUS RHYTHM COMPARED TO ECG 02/08/2022 08:13:44 NO SIGNIFICANT CHANGES Electronically Signed On 11-08-2022 13:33:33 CDT by Sarah Gallardo M.D.
[2022-11-08 11:18] LABS: Basophils Absolute Auto 0.1 K/mm3 (0.0-0.1); Eosinophils Absolute Auto 0.2 K/mm3 (0-0.3); Eosinophils Percent Auto 3.7 % (0-4.4); Hemoglobin 12.4 g/dL (12.0-15.0); Immature Granulocyte Absolute 0.02 K/mm3 (0.00-0.031); Immature Granulocyte Percent A 0.3 % (0-0.5); Lymphocytes Absolute Auto 1.46 K/mm3 (0.9-3.2); Lymphocytes Percent Auto 24.5 % (18.3-44.2); Mean Corpuscular HGB Conc 29.5 g/dl (32-36); Mean Corpuscular Hemoglobin 23.3 pg (26-34); Mean Corpuscular Volume 78.8 fl (80-100); Mean Platelet Volume 9.2 fl (7.4-10.4); Monocytes Absolute Auto 0.7 K/mm3 (0.1-0.6); Monocytes Percent Auto 12.1 % (2.6-8.5); Neutrophils Absolute Auto 3.5 K/mm3 (1.3-6.7); Neutrophils Percent Auto 58.4 % (45.5-73.1); Platelet Count Result 413 k/mm3 (150-375); Red Blood Count 5.33 M/mm3 (4.2-5.4); Red Cell Distribution Width 21.7 % (11.5-14.5)
[2022-11-08 11:27] LABS: INR 0.9; Prothrombin Time 12.6 Seconds (11.1-14.7)
[2022-11-08 11:28] LABS: Partial Thromboplastin Time 25.2 SECONDS (22.3-36.8)
[2022-11-08 11:33] LABS: Alanine Aminotransferase 26 U/L (6-35); Albumin Level 4.2 g/dL (3.5-5.1); Alkaline Phosphatase 101 U/L (38-126); Anion Gap 3 mmol/L (8-16); Aspartate Amino Transferase 28 U/L (14-36); Bilirubin,Total 0.2 mg/dL (0.2-1.3); Blood Urea Nitrogen 10 mg/dL (7-17); Calcium 8.7 mg/dL (8.4-10.2); Carbon Dioxide 31 mmol/L (22-30); Chloride 104 mmol/L (98-107); Estimated CRCL calculation 87 ml/min; Estimated Glomerular Filt Rate > 60; Glucose 104 mg/dL (65-110); Lipase 55 U/L (23-300); Potassium 4.5 mmol/L (3.4-5.0); Sodium 138 mmol/L (137-145)
[2022-11-08 11:41] LABS: Troponin I < 0.012 ng/mL (0.000-0.034)
[2022-11-08 13:14] VITALS: PULSE 81
[2022-11-08] MEDS: ONDANSETRON INJ 4 MG/2 ML VIAL IV PUSH (14:01)
[2022-11-08] MEDS: MECLIZINE HCL 25 MG TABLET PO (14:01)
[2022-11-08] MEDS: SODIUM CHLORIDE 0.9% IV 1,000 ML 999 ML IV CONT (14:01)
[2022-11-08 14:38] LABS: Troponin I < 0.012 ng/mL (0.000-0.034)
--- NOTE | 2022-11-08 15:28 | ED.GENADULT ---
HPI - General Adult General Chief complaint: Dizziness Stated complaint: dizziness, onset saturday Time Seen by Provider: 11/08/22 13:05 History of Present Illness HPI narrative: Patient is a 61-year-old female who presents ER with dizziness. It is worse with positional movements and turning her head. It began 5 days ago. It has waxed and waned in intensity. At its most intense she has trouble walking and is very nauseous. Currently 10/27. Has tried no medications. Denies history of vertigo in the past. No sinus congestion or sore throat. No ear pressure or ringing in the ears. Related Data Home Medications Medication Instructions Recorded Confirmed cholecalciferol (vitamin D3) 25 3,000 unit PO DAILY 06/16/19 10/10/22 mcg (1,000 unit) capsule omega-3 fatty acids 1,000 mg 2,000 mg PO DAILY 02/28/21 10/10/22 capsule (Fish Oil Concentrate) calcium polycarbophil 625 mg 1,250 mg PO BID 07/19/22 10/10/22 tablet (FiberCon) ferrous sulfate 325 mg (65 mg 325 mg PO DAILY 07/19/22 10/10/22 iron) tablet,delayed release magnesium oxide 500 mg capsule 500 mg PO BID PRN constipation 07/19/22 10/10/22 quetiapine 25 mg tablet (Seroquel) 12.5 mg PO EVERY OTHER DAY 09/03/22 10/10/22 Allergies Allergy/AdvReac Type Severity Reaction Status Date / Time No Known Allergies Allergy Verified 09/03/22 12:35 Review of Systems Review of Systems: All systems reviewed & are unremarkable except as noted in HPI and below Constitutional: Constitutional: Denies chills and Denies fever(s) Eyes: Eyes: Denies change in vision and Denies photophobia ENT: Reports dizziness, Denies nasal congestion and Denies sore throat Cardiovascular: Cardiovascular: Denies chest pain, Denies rapid heart rate and Denies radiating jaw, neck or arm pain Respiratory: Respiratory: Denies cough Gastrointestinal: Gastrointestinal: Denies abdominal pain, Reports nausea and Denies vomiting [facility] Past Medical History Medical History (Updated 11/08/22 @ 15:28 by Paxton Santiago MD) Abdominal pain Abnormal bowel habits Abnormal fasting glucose (01/16/22) fasting glucose 106 with hemoglobin A1c 5.7 on 01/16/2022. fasting glucose 93 with hemoglobin A1c 5.4 on 09/18/2022. Acute bronchitis Anemia Aspiration pneumonia (07/15/21) Breast cancer screening by mammogram Chest pain Exercise stress test on 02/08/2022 was negative for ischemia. Transesophageal echocardiogram on 02/08/2022 with LVH and grade 1 diastolic dysfunction. Chronic depression Cough COVID-19 positive rapid test 05/12/2021 COVID-19 long hauler manifesting chronic dyspnea (~05/2021) Dizziness Dysphagia modified barium swallow was normal 08/03/2021 Dyspnea Normal pulmonary function test on 02/02/2022. Fatigue Fibromyalgia CK 113, sedimentation rate of 9 on 09/18/2022. History of COVID-19 History of tobacco abuse Hyperlipidemia total cholesterol 208, HDL 66, triglycerides 134, LDL 117 on 01/16/2022. Hypersomnia Hypothyroidism, unspecified TSH 5.03 with free T4 1.0 on 01/16/2022. TSH 4.21 with free T4 1.1 on 09/18/2022. Insomnia Iron deficiency anemia, unspecified Labs on 02/11/2021 with iron 34, 7% saturation, and ferritin 4 with hemoglobin 11.1. Iron low at 34 with 7% saturation and ferritin 6 on 01/16/2022. iron 245 with 48% saturation and ferritin 9 on 09/18/2022. Irritable bowel syndrome with constipation and diarrhea Left shoulder pain Lower abdominal pain Morbid obesity with BMI of 50.0-59.9, adult Muscle cramps Peptic ulcer disease History of peptic ulcer disease with normal EGD on 03/15/2021 with 4 cm hiatal hernia. Biopsies obtained Polyp of colon (03/15/21) 12 mm polyp of the cecum on colonoscopy with Dr. Castillo 03/15/2021 with recheck in 3 years. External hemorrhoids noted. Right wrist pain Screening for diabetes mellitus Syncope and collapse (07/15/21) EEG on 08/07/2021 was normal. No seizure activity. MRI of the brain on 08/08/2021 was normal. Thyroid disorder
== END 2022-11-08 15:47 | disposition home or self-care (01) ==
PROVIDERS: Emergency Provider Emergency Medicine; PCP Family Medicine
DX: R42 Dizziness and giddiness (principal); E78.5 Hyperlipidemia, unspecified; E03.9 Hypothyroidism, unspecified; M79.7 Fibromyalgia; D50.9 Iron deficiency anemia, unspecified; K58.2 Mixed irritable bowel syndrome; F32.A Depression, unspecified; Z86.16 Personal history of COVID-19; Z87.11 Personal history of peptic ulcer disease; Z86.010 Personal history of colon polyps; Z90.710 Acquired absence of both cervix and uterus; Z90.49 Acquired absence of other specified parts of digestive tract; Z87.891 Personal history of nicotine dependence
CPT/HCPCS: 36415; 71046; 80053; 83690; 84484; 85025; 85610; 85730; 93005; 96361; 96374; 99284; A9270; J2405; J7030

== ENCOUNTER 2023-05-31 15:06 | Emergency (ER) | payer OTHER, SELFPAY ==
--- NOTE | ~2023-05-31 | CT_ITS ---
EXAMINATION: CT brain wo con DATE: 05/31/2023 16:43 INDICATION: Headache TECHNIQUE: Computed tomography (CT) of the head was performed without intravenous contrast. Sagittal and coronal reconstructions were performed. The mA was adjusted according to patient size. Iterative reconstruction technique was employed. The dose-length product was 605.33 mGy-cm. COMPARISON: Brain MR dated 08/08/2021 FINDINGS: No acute intracranial hemorrhage, acute infarction or abnormal extra axial fluid collection. Symmetri c prominence of the sulci consistent with mild age-appropriate diffuse cerebral volume loss. Ventric les are normal and symmetric. No mass/mass effect. The orbits, paranasal sinuses and mastoid air cell s are normal. IMPRESSION: 1. Normal aging brain. No acute intracranial process. Reviewed, dictated and finalized at location A. 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
[2023-05-31 15:14] VITALS: BP 198/90; PULSE 98; RESP 17; TEMP 36.6; O2SAT 98
--- NOTE | 2023-05-31 16:54 | ED.HA ---
HPI - Headache General Chief Complaint: Headache Stated Complaint: headache, r. ear pain Time Seen by Provider: 05/31/23 16:04 Source: patient Mode of arrival: ambulatory Limitations: no limitations History of Present Illness HPI Narrative: 62-year-old female presenting for headache. Patient has a long history of vertigo and was having vertigo symptoms yesterday including room spinning dizziness which is very typical for her. She also had a right-sided headache which is not usually normal with her vertigo. She did her meclizine in the vertigo has been gone over since yesterday afternoon. The headache is continuing. Headache is right-sided behind her right eye mostly, it was a throbbing sensation it is mostly on the right side of her head. No vision changes however she does have photophobia. No neck pain. No paresthesias or weakness. No balance issues. Related Data Home Medications Medication Instructions Recorded Confirmed cholecalciferol (vitamin D3) 25 3,000 unit PO DAILY 06/16/19 02/28/23 mcg (1,000 unit) capsule omega-3 fatty acids 1,000 mg 2,000 mg PO DAILY 02/28/21 02/28/23 capsule (Fish Oil Concentrate) calcium polycarbophil 625 mg 1,250 mg PO BID 07/19/22 02/28/23 tablet (FiberCon) ferrous sulfate 325 mg (65 mg 325 mg PO DAILY 07/19/22 02/28/23 iron) tablet,delayed release magnesium oxide 500 mg capsule 500 mg PO BID PRN constipation 07/19/22 02/28/23 omeprazole 20 mg tablet,delayed 20 mg PO BID 02/04/23 02/28/23 release Allergies Allergy/AdvReac Type Severity Reaction Status Date / Time No Known Allergies Allergy Verified 05/31/23 15:17 Review of Systems Review of Systems: All systems reviewed & are unremarkable except as noted in HPI and below (HPI) [facility] Past Medical History Medical History Abdominal pain Abnormal bowel habits Abnormal fasting glucose (01/16/22) fasting glucose 106 with hemoglobin A1c 5.7 on 01/16/2022. fasting glucose 93 with hemoglobin A1c 5.4 on 09/18/2022. Glucose 88 with hemoglobin A1c 5.7 on 02/04/2023. Acute bronchitis Acute non-recurrent maxillary sinusitis Anemia Aspiration pneumonia (07/15/21) Breast cancer screening by mammogram Chest pain Exercise stress test on 02/08/2022 was negative for ischemia. Transesophageal echocardiogram on 02/08/2022 with LVH and grade 1 diastolic dysfunction. Chronic depression Cough COVID-19 positive rapid test 05/12/2021 COVID-19 long hauler manifesting chronic dyspnea (~05/2021) Dizziness Dysphagia modified barium swallow was normal 08/03/2021 Dyspnea Normal pulmonary function test on 02/02/2022. Fatigue Fibromyalgia CK 113, sedimentation rate of 9 on 09/18/2022. History of COVID-19 History of tobacco abuse Hyperlipidemia total cholesterol 208, HDL 66, triglycerides 134, LDL 117 on 01/16/2022. Cholesterol 223, triglycerides 95, HDL 80, LDL 123 with ratio 2.8 on 02/04/2023. Hypersomnia Hypothyroidism, unspecified TSH 5.03 with free T4 1.0 on 01/16/2022. TSH 4.21 with free T4 1.1 on 09/18/2022. He TSH 1.19 with free T4 1.0 on 02/04/2023. Insomnia Iron deficiency anemia, unspecified Labs on 02/11/2021 with iron 34, 7% saturation, and ferritin 4 with hemoglobin 11.1. Iron low at 34 with 7% saturation and ferritin 6 on 01/16/2022. iron 245 with 48% saturation and ferritin 9 on 09/18/2022. Iron 57 with 13% saturation and ferritin 15 with hemoglobin 14.6 on 02/04/2023. Irritable bowel syndrome with constipation and diarrhea Left shoulder pain Lower abdominal pain Morbid obesity with BMI of 50.0-59.9, adult Muscle cramps Peptic ulcer disease History of peptic ulcer disease with normal EGD on 03/15/2021 with 4 cm hiatal hernia. Biopsies obtained Pharyngitis Polyp of colon (03/15/21) 12 mm polyp of the cecum on colonoscopy with Dr. Castillo 03/15/2021 with recheck in 3 years. External hemorrhoids noted. Right wrist pain Screening for diabetes mellitus Syncope
[2023-05-31 17:00] VITALS: BP 131/81; PULSE 65; RESP 16; O2SAT 98
[2023-05-31] MEDS: SODIUM CHLORIDE 0.9% IV 500 ML 999 ML IV CONT (17:00)
[2023-05-31] MEDS: METOCLOPRAMIDE HCL INJ 10 MG/2 ML VIAL IV PUSH (17:09)
[2023-05-31] MEDS: KETOROLAC 15 MG/ML VIAL (*BKC) IV PUSH (17:12)
[2023-05-31 17:15] LABS: Basophils Absolute Auto 0.1 K/mm3 (0.0-0.1); Basophils Percent Auto 0.9 % (0.2-1.2); Eosinophils Absolute Auto 0.4 K/mm3 (0-0.3); Eosinophils Percent Auto 5.4 % (0-4.4); Hematocrit 47.3 % (37.0-47.0); Hemoglobin 14.8 g/dL (12.0-15.0); Immature Granulocyte Absolute 0.02 K/mm3 (0.00-0.031); Immature Granulocyte Percent A 0.3 % (0-0.5); Lymphocytes Absolute Auto 1.83 K/mm3 (0.9-3.2); Lymphocytes Percent Auto 27.4 % (18.3-44.2); Mean Corpuscular HGB Conc 31.3 g/dl (32-36); Mean Corpuscular Volume 92.6 fl (80-100); Mean Platelet Volume 9.7 fl (7.4-10.4); Monocytes Absolute Auto 0.8 K/mm3 (0.1-0.6); Monocytes Percent Auto 11.8 % (2.6-8.5); Neutrophils Absolute Auto 3.6 K/mm3 (1.3-6.7); Neutrophils Percent Auto 54.2 % (45.5-73.1); Platelet Count Result 406 k/mm3 (150-375); Red Blood Count 5.11 M/mm3 (4.2-5.4); Red Cell Distribution Width 14.6 % (11.5-14.5); White Blood Count 6.7 K/mm3 (4.5-10.0)
[2023-05-31] MEDS: MORPHINE SULFATE (*CRX) 2 MG/ML INJ IV PUSH (17:16)
[2023-05-31] MEDS: diphenhydrAMINE HCl INJ 50 MG/ML VIAL 25 MG IV PUSH (17:17)
[2023-05-31 17:35] LABS: Alanine Aminotransferase 39 U/L (6-35); Albumin Level 4.2 g/dL (3.5-5.1); Alkaline Phosphatase 111 U/L (38-126); Anion Gap 8 mmol/L (8-16); Aspartate Amino Transferase 38 U/L (14-36); Bilirubin,Total 0.6 mg/dL (0.2-1.3); Blood Urea Nitrogen 13 mg/dL (7-17); Calcium 9.4 mg/dL (8.4-10.2); Carbon Dioxide 30 mmol/L (22-30); Chloride 100 mmol/L (98-107); Estimated CRCL calculation 92 ml/min; Estimated Glomerular Filt Rate > 60; Glucose 83 mg/dL (65-110); Potassium 4.3 mmol/L (3.4-5.0); Sodium 138 mmol/L (137-145)
[2023-05-31 18:00] VITALS: BP 123/66; PULSE 63; RESP 16; O2SAT 96
[2023-05-31] MEDS: MORPHINE SULFATE (*CRX) 4 MG/ML INJ IV PUSH (18:27)
[2023-05-31 19:00] VITALS: BP 128/70; PULSE 70; RESP 16; O2SAT 98
== END 2023-05-31 19:00 | disposition home or self-care (01) ==
PROVIDERS: Emergency Provider Emergency Medicine; PCP Family Medicine
DX: G43.909 Migraine, unspecified, not intractable, without status migrainosus (principal); E03.9 Hypothyroidism, unspecified; E78.5 Hyperlipidemia, unspecified; D64.9 Anemia, unspecified; F32.A Depression, unspecified; M79.7 Fibromyalgia; E66.01 Morbid (severe) obesity due to excess calories; Z68.43 Body mass index [BMI] 50.0-59.9, adult; Z87.891 Personal history of nicotine dependence; Z79.51 Long term (current) use of inhaled steroids; Z79.85 Long-term (current) use of injectable non-insulin antidiabetic drugs
CPT/HCPCS: 36415; 70450; 80053; 85025; 96374; 96375; 96376; 99284; J1200; J1885; J2270; J2765; J7040

== ENCOUNTER 2023-08-05 09:28 | Outpatient (CLI) | payer OTHER, SELFPAY ==
--- NOTE | 2023-08-05 09:47 | ECG_ITS ---
Measurements Intervals [place] Rate: 78 P: 37 GA: 169 QRS: 0 QRSD: 87 T: 23 QT: 360 QTc: 412 Interpretive Statements SINUS RHYTHM CONSIDER INFERIOR INFARCT, AGE INDETERMINATE BORDERLINE T WAVE ABNORMALITY- ANTERIOR LEADS ABNORMAL ECG COMPARED TO ECG 11/08/2022 10:58:19 NO SIGNIFICANT CHANGES Electronically Signed On 08-05-2023 10:43:43 CDT by John Kay D.O.
== END 2023-08-05 09:29 | disposition home or self-care (01) ==
PROVIDERS: PCP Family Medicine; Visit Provider Family Medicine
DX: R42 Dizziness and giddiness (principal); R94.31 Abnormal electrocardiogram [ECG] [EKG]
CPT/HCPCS: 93005

== ENCOUNTER 2023-10-03 08:16 | Outpatient (CLI) | payer OTHER, SELFPAY ==
--- NOTE | ~2023-10-03 | MM_ITS ---
EXAMINATION: MM screening tosha BI w anna HISTORY: Screening mammogram TECHNIQUE: Craniocaudal and mediolateral oblique 3-D tomosynthesis images were obtained and synthetic 2-D images were generated. CAD analysis was submitted and interpreted. COMPARISON: No prior mammogram is available for comparison at this institution. BREAST PARENCHYMAL COMPOSITION: The breasts are almost entirely fatty. FINDINGS: There is no evidence of suspicious mass, calcification, or architectural distortion to sugg est malignancy in either breast. IMPRESSION: 1. No mammographic evidence of malignancy. 2. Recommend routine screening mammography in one year. BI-RADS Category 1: Negative Reviewed, dictated and finalized at location B.
== END 2023-10-03 08:17 ==
PROVIDERS: PCP Nurse Practitioner; Visit Provider Family Medicine
DX: Z12.31 Encounter for screening mammogram for malignant neoplasm of breast (principal)
CPT/HCPCS: 77063; 77067

== ENCOUNTER 2023-12-06 22:21 | Emergency (ER) | payer OTHER, SELFPAY ==
--- NOTE | ~2023-12-06 | XR_ITS ---
XR hand LT min 3V Ordering provider: Damian Beasley MD History: . injury, pain . Comparison: None. FINDINGS: BONES: No acute fracture or dislocation. Lucencies are seen in the distal radius. Clinical correlation to exclude multiple myeloma advised. Sc lerotic changes seen in the second, third and fourth fingers proximal phalanges. Clinical correlation advised. JOINT SPACES: Narrowing of the proximal and distal interphalangeal joints. Osteoarthritic changes of the first carpometacarpal joint. SOFT TISSUES: Unremarkable. IMPRESSION: No acute osseous abnormality left hand. Reviewed, dictated and finalized at location A.
[2023-12-06 22:26] VITALS: BP 138/88; PULSE 88; RESP 20; TEMP 36.3; O2SAT 97
[2023-12-07 00:18] VITALS: BP 154/97; PULSE 90; RESP 20; O2SAT 99
== END 2023-12-07 01:00 | disposition left against medical advice (07) ==
PROVIDERS: Emergency Provider Emergency Medicine; PCP Nurse Practitioner
DX: M25.532 Pain in left wrist (principal)
CPT/HCPCS: 73130; 99199

== ENCOUNTER 2023-12-11 14:00 | Outpatient (RCR) | payer OTHER, SELFPAY ==
--- NOTE | 2023-10-23 16:19 | OPREHPOC ---
Outpatient Therapy Plan of Care This is a Multidisciplinary Plan of Care that may contain components documented by all disciplines (PT, OT, and ST.) PT Problem 1 PT Problem #1 Knowledge Deficit PT Goal 1 Goal indep with HEP Target Visit 8 PT Problem 2 PT Problem #2 Pain PT Goal 1 Goal 1* pt report headache duration of 1-2 hours Target Visit 8 PT Problem 3 PT Problem #3 Impaired Vestibular Syste PT Goal 1 Goal 1* dizziness handicap index self rating of 30% limitation in activity 2* no dizziness reported with sit/stand transfer 3* pt able to stand with eyes closed 10 seconds with good balance 4* further assessment of eye tracking and vestibular system as indicated Target Visit 8
--- NOTE | 2023-10-23 16:19 | PTOPEVAL1 ---
Assessment and note entered by Yumiko Smith, PT Evaluation Information Assessment Status Evaluation Diagnosis cervicalgia, dizziness, essential tremors, migraines Onset May 2023 Subjective Information went to ER due to extreme head pain; was severe migraine; when she had migraine had some dizziness since to ER, have not had a migraine, but have had more headaches; occur about every 3-4 weeks, last 3-4 hours, take over the counter meds to ease it; have orders for MRI- await insurance authorization had vertigo about 1 year ago, maneuver cleared it; have had dizziness since the migraine in May-- constant dizzy; symptoms: disconnected, unsteady, increase symptoms: close eyes, sit to stand, move too fast decrease symptoms: steady self and hold onto something Activity: is not working at this time; is driving and doing all of her home tasks--do not carry laundry or heavier things on the stairs; Reported Pain Level Pain Score 2: Self Report Additional Pain Score Comments low grade headache--have in back of head Assessment PT Clinical Summary Mahi has had dizziness since her migraine and ER visit in May. Self assessment with Dizziness Handicap Index rating of 56% limitation in activity level. Due to dizziness she is not playing softball or carrying laundry basket down stairs. Her medical history includes: fibromyalgia, COVID long hauler chronic dyspnea, multiple meds and vertigo about 1 year ago. With the vestibular testing: Positive for Horizontal canal BPPV to R and L with dizziness to R more than L, no nystagmus was noted, dizziness cleared within 10 seconds. Education to pt on vestibular system, BPPV and multiple risk factors that she has for dizziness. Will begin treatment fo
--- NOTE | 2023-11-27 12:55 | PCPTNOTE ---
Pt canceled due illness.
--- NOTE | 2023-12-04 13:19 | PCPTNOTE ---
Pt canceled due to illness.
--- NOTE | 2023-12-19 11:51 | PCPTNOTE ---
pt called and canceled due to being ill.
--- NOTE | 2024-01-08 10:31 | PTOPDC ---
Assessment and note entered by Yumiko Smith, PT Discharge Report Assessment Status Discharge - Pt Not Present Diagnosis cervicalgia, dizziness, essential tremors, migraines Onset May 2023 Subjective Information pt called and canceled her reevaluation appt-- stated she was doing well and did not need anymore therapy. Assessment PT Clinical Summary October has received 5 PT sessions. She called and canceled 4 appointments. Discharge PT due to pt calling and stated she was doing well. Goals were not addressed. Plan of Care PT Services Indicated No
== END 2024-01-08 13:44 | disposition home or self-care (01) ==
LOC: ANHPT 14:00
PROVIDERS: PCP Nurse Practitioner; Visit Provider Psychiatry & Neurology Neurology
DX: M54.2 Cervicalgia (principal); G25.0 Essential tremor; G43.009 Migraine without aura, not intractable, without status migrainosus; R42 Dizziness and giddiness
CPT/HCPCS: 95992; 97014; 97110; 97140; 97161; 97530; G0283

== ENCOUNTER 2023-12-24 07:04 | Outpatient (CLI) | payer OTHER, SELFPAY ==
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
== END 2023-12-24 07:05 ==
PROVIDERS: PCP Family Medicine; Visit Provider Psychiatry & Neurology Neurology
DX: Z87.828 Personal history of other (healed) physical injury and trauma (principal)
CPT/HCPCS: 70551

== ENCOUNTER 2024-04-20 00:37 | Day surgery (SDC) | payer OTHER, SELFPAY ==
[2024-04-06 15:45] VITALS: BMI 49.8
[2024-04-20 10:46] VITALS: BP 182/103; PULSE 78; RESP 20; TEMP 36.4; O2SAT 96
[2024-04-20] MEDS: LACTATED RINGERS 1,000 ML 150 ML IV CONT (10:52)
--- NOTE | 2024-04-20 10:54 | P.PNAN_ITS ---
Anes - Initial Pre Proc Eval Procedure: Operation Date: 04/20/24 13:30 Proposed Procedures p Colonoscopy - Canelo Garnica MD Date/Time: 04/20/24 10:54 Surgeon: Canelo Garnica MD Pre Op Diagnosis: hx of colon polyps Patient Data Age: 63 Gender: F Height: 1.63 m Weight: 138.2 kg Last Vital Signs Temp 36.4 C L 04/20/24 10:46 Pulse 78 04/20/24 10:46 Resp 20 04/20/24 10:46 BP 182/103 H 04/20/24 10:46 Pulse Ox 96 04/20/24 10:46 O2 Del Method Room Air 04/20/24 10:46 Allergies Allergy/AdvReac Type Severity Reaction Status Date / Time No Known Allergies Allergy Verified 04/20/24 10:45 Home Medications Medication Instructions Recorded Confirmed Type cholecalciferol (vitamin D3) 25 3,000 unit PO DAILY 06/16/19 04/20/24 History mcg (1,000 unit) capsule omega-3 fatty acids 1,000 mg 2,000 mg PO DAILY 02/28/21 04/20/24 History capsule (Fish Oil Concentrate) ferrous sulfate 325 mg (65 mg 325 mg PO DAILY 07/19/22 04/20/24 History iron) tablet,delayed release magnesium oxide 500 mg capsule 500 mg PO BID PRN constipation 07/19/22 04/20/24 History meclizine 25 mg tablet 12.5 - 25 mg PO TID PRN dizziness 11/12/22 04/20/24 Rx #90 tabs omeprazole 20 mg tablet,delayed 20 mg PO BID 02/04/23 04/20/24 History release syringe with needle 3 mL 23 x 1 #20 ea 04/19/23 04/06/24 Rx (BD Eclipse Luer-Eleazar) hydrocodone 5 mg-acetaminophen 325 1 tablet PO Q6H PRN pain #7 tabs 05/31/23 04/20/24 Rx mg tablet semaglutide (weight loss) 0.25 0.25 mg (0.5 mL) subcut WEEKLY #2 06/03/23 04/20/24 Rx mg/0.5 mL subcutaneous pen mL injector (Wegovy) ubrogepant 100 mg tablet (Ubrelvy) 100 mg PO ONCE PRN migraine 06/03/23 04/20/24 History ondansetron HCl 4 mg tablet 4 mg PO Q8H PRN nausea and 06/24/23 04/20/24 Rx vomiting #20 tabs duloxetine 60 mg capsule,delayed 60 mg PO DAILY #90 caps 08/05/23 04/20/24 Rx release cyclobenzaprine 10 mg tablet 10 mg PO TID PRN muscle spasm #90 09/03/23 04/20/24 Rx tabs cyanocobalamin (vitamin B-12) 1,000 mcg subcut DIRECTED 04/06/24 04/20/24 History 1,000 mcg/mL injection kit fluticasone 500 mcg-salmeterol 50 See Rx Instructions .Route 04/06/24 04/20/24 History mcg/dose blistr powdr for .COMPLEX PRN Shortness Of Breath inhalation (Advair Diskus) Or Wheezing zolpidem 10 mg tablet (Ambien) 10 mg PO QHS 04/06/24 04/20/24 History levothyroxine 100 mcg tablet 100 mcg PO . q.a.m. #90 tabs 04/07/24 04/20/24 Rx Patient hx anesthesia problems: other (cold afterward) Family hx anesthesia problems: none Results Review: All pre-operative results and documents have been reviewed as part of the pre- operative evaluation. [facility] Past Medical History Medical History Abdominal pain Abnormal bowel habits Abnormal fasting glucose (01/16/22) fasting glucose 106 with hemoglobin A1c 5.7 on 01/16/2022. fasting glucose 93 with hemoglobin A1c 5.4 on 09/18/2022. Glucose 88 with hemoglobin A1c 5.7 on 02/04/2023. glucose 102 with hemoglobin A1c 4.8 on 07/29/2023. glucose 93 with hemoglobin A1c 5.7 and GFR 78 on 03/09/2024. Acute bronchitis Acute non-recurrent maxillary sinusitis Anemia Arthritis Aspiration pneumonia (07/15/21) Benign essential tremor Breast cancer screening by mammogram Normal mammogram 10/03/2023. Chest pain Exercise stress test on 02/08/2022 was negative for ischemia. Transesophageal echocardiogram on 02/08/2022 with LVH and grade 1 diastolic dysfunction. Chronic depression Cough COVID-19 positive rapid test 05/12/2021 COVID-19 long hauler manifesting chronic dyspnea (~05/2021) Dizziness Dysphagia modified barium swallow was normal 08/03/2021 Dyspnea Normal pulmonary function test on 02/02/2022. Fatigue TSH 0.83, free T4 1.3, hemoglobin 15.5 on 03/09/2024. Fibromyalgia CK 113, sedimentation rate of 9 on 09/18/2022. History of COVID-19 History of tobacco abuse Hyperlipidemia total cholesterol 208, HDL 66, triglycerides 134, LDL 117 on 01/16/2022. Cholesterol 223, triglycerides 95, HDL 80, LDL 123 with ratio 2.8 on 02/04/2023. Cholesterol 210, triglycerides 162, HDL 63, LDL 119 with ratio 3.3 on 03/09/2024. Hypersomnia Hypothyroidism, unspecified TSH 5.03 with free T4 1.0 on 01/16/2022. TSH 4.21 with free T4 1.1 on 09/18/2022. He TSH 1.19 with free T4 1.0 on 02/04/2023. TSH 0.83, free T4 at 1.3 on 03/09/2024. Insomnia Iron deficiency anemia, unspecified Labs on 02/11/2021 with iron 34, 7% saturation, and ferritin 4 with hemoglobin 11.1. Iron low at 34 with 7% saturation and ferritin 6 on 01/16/2022. iron 245 with 48% saturation and ferritin 9 on 09/18/2022. Iron 57 with 13% saturation and ferritin 15 with hemoglobin 14.6 on 02/04/2023. Iron 49 with 12% saturation and ferritin 14 with hemoglobin 15.1 on 07/29/2023. Iron 84 with 23% saturation and ferritin 24 with hemoglobin 15.5 on 03/09/2024. Irritable bowel syndrome with constipation and diarrhea Left shoulder pain Lower abdominal pain Migraine headache without aura (05/31/23) MRI of the brain on 12/24/2023 unremarkable. Morbid obesity with BMI of 50.0-59.9, adult Muscle cramps Magnesium 2.0 on 03/09/2024. Nasal folliculitis Neck pain Peptic ulcer disease History of peptic ulcer disease with normal EGD on 03/15/2021 with 4 cm hiatal hernia. Biopsies obtained Pharyngitis Polyp of colon (10/27/21) 12 mm polyp of the cecum on colonoscopy with Dr. Castillo 03/15/2021 with recheck in 3 years. External hemorrhoids noted. Right wrist pain Screening for diabetes mellitus Syncope and collapse (07/15/21) EEG on 08/07/2021 was normal. No seizure activity. MRI of the brain on 08/08/2021 was normal. Tobacco use disorder, continuous Patient quit smoking 2021. Upper abdominal pain Urinary frequency Weakness of left upper extremity (~05/2023) EKG on 08/05/2023 with sinus rhythm with nonspecific ST T wave changes unchanged from previous EKG 11/08/2022. Surgical History Surgical History H/O: hysterectomy History of appendectomy History of cholecystectomy History of hand surgery History of tonsillectomy Family History Family History Father Diabetes mellitus, Onset Age: 79 Cerebrovascular accident, Onset Age: 79 Alcoholism Cancer Hypertension Heart disease Sibling Family history of suicide, Onset Age: 42 Alcoholism Cancer Hypertension Depression Heart disease Cerebrovascular accident Thyroid disorder Mother Acute myocardial infarction, Onset Age: 79 Depression Thyroid disorder Hypertension Heart disease Grandparent Acute myocardial infarction, Onset Age: 80 Social History Social History Years smoked: 45 Smoking status: Former smoker Tobacco type: cigarettes Smoking end date: 07/15/21 Additional smoking assessment comments: quit 2 year ago Alcohol intake: current Alcohol use details: 2 per month Substance use: never Substance use type: does not use Lack of Transportation: No Lack of Food: Never True Current Housing: I Have Housing Concerned About Future Housing: No Difficulty Paying Gas/Electric Bills: No Difficulty Paying for Meds: No Currently Unemployed: No Education: High School Diploma/GED Difficulty w/ Childcare or Family Care: No Living arrangements: with family Occupation/Education: occupation 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 Informed Consent: The patient's anesthetic plan and its attendant risks and benefits were discussed with the patient/family/POA. Questions were solicited and answers provided to the satisfaction of the patient/family/POA.
--- NOTE | 2024-04-20 11:02 | PM.IMHP ---
H&P: HPI History of Present Illness Date/Time: 04/20/24 11:02 Chief Complaint: History of colon polyps Narrative: The patient has a history of colonic polyps, the last colonoscopy was 5 years ago Review of Systems Review of Systems: All systems reviewed & are unremarkable except as noted in HPI and below [facility] Past Medical History Medical History Abdominal pain Abnormal bowel habits Abnormal fasting glucose (01/16/22) fasting glucose 106 with hemoglobin A1c 5.7 on 01/16/2022. fasting glucose 93 with hemoglobin A1c 5.4 on 09/18/2022. Glucose 88 with hemoglobin A1c 5.7 on 02/04/2023. glucose 102 with hemoglobin A1c 4.8 on 07/29/2023. glucose 93 with hemoglobin A1c 5.7 and GFR 78 on 03/09/2024. Acute bronchitis Acute non-recurrent maxillary sinusitis Anemia Arthritis Aspiration pneumonia (07/15/21) Benign essential tremor Breast cancer screening by mammogram Normal mammogram 10/03/2023. Chest pain Exercise stress test on 02/08/2022 was negative for ischemia. Transesophageal echocardiogram on 02/08/2022 with LVH and grade 1 diastolic dysfunction. Chronic depression Cough COVID-19 positive rapid test 05/12/2021 COVID-19 long hauler manifesting chronic dyspnea (~05/2021) Dizziness Dysphagia modified barium swallow was normal 08/03/2021 Dyspnea Normal pulmonary function test on 02/02/2022. Fatigue TSH 0.83, free T4 1.3, hemoglobin 15.5 on 03/09/2024. Fibromyalgia CK 113, sedimentation rate of 9 on 09/18/2022. History of COVID-19 History of tobacco abuse Hyperlipidemia total cholesterol 208, HDL 66, triglycerides 134, LDL 117 on 01/16/2022. Cholesterol 223, triglycerides 95, HDL 80, LDL 123 with ratio 2.8 on 02/04/2023. Cholesterol 210, triglycerides 162, HDL 63, LDL 119 with ratio 3.3 on 03/09/2024. Hypersomnia Hypothyroidism, unspecified TSH 5.03 with free T4 1.0 on 01/16/2022. TSH 4.21 with free T4 1.1 on 09/18/2022. He TSH 1.19 with free T4 1.0 on 02/04/2023. TSH 0.83, free T4 at 1.3 on 03/09/2024. Insomnia Iron deficiency anemia, unspecified Labs on 02/11/2021 with iron 34, 7% saturation, and ferritin 4 with hemoglobin 11.1. Iron low at 34 with 7% saturation and ferritin 6 on 01/16/2022. iron 245 with 48% saturation and ferritin 9 on 09/18/2022. Iron 57 with 13% saturation and ferritin 15 with hemoglobin 14.6 on 02/04/2023. Iron 49 with 12% saturation and ferritin 14 with hemoglobin 15.1 on 07/29/2023. Iron 84 with 23% saturation and ferritin 24 with hemoglobin 15.5 on 03/09/2024. Irritable bowel syndrome with constipation and diarrhea Left shoulder pain Lower abdominal pain Migraine headache without aura (05/31/23) MRI of the brain on 12/24/2023 unremarkable. Morbid obesity with BMI of 50.0-59.9, adult Muscle cramps Magnesium 2.0 on 03/09/2024. Nasal folliculitis Neck pain Peptic ulcer disease History of peptic ulcer disease with normal EGD on 03/15/2021 with 4 cm hiatal hernia. Biopsies obtained Pharyngitis Polyp of colon (03/15/21) 12 mm polyp of the cecum on colonoscopy with Dr. Castillo 03/15/2021 with recheck in 3 years. External hemorrhoids noted. Right wrist pain Screening for diabetes mellitus Syncope and collapse (07/15/21) EEG on 08/07/2021 was normal. No seizure activity. MRI of the brain on 08/08/2021 was normal. Tobacco use disorder, continuous Patient quit smoking 2021. Upper abdominal pain Urinary frequency Weakness of left upper extremity (~05/2023) EKG on 08/05/2023 with sinus rhythm with nonspecific ST T wave changes unchanged from previous EKG 11/08/2022. Surgical History Surgical History H/O: hysterectomy History of appendectomy History of cholecystectomy History of hand surgery History of tonsillectomy Family History Family History Father Diabetes mellitus, Onset Age: 79 Cerebrovascular accident, Onset Age: 79 Alcoholism Cancer Hypertension Heart disease Sibling Family history of suicide, Onset Age: 42 Alcoholism Cancer Hypertension Depression Heart disease Cerebrovascular accident Thyroid disorder Mother Acute myocardial infarction, Onset Age: 79 Depression Thyroid disorder Hypertension Heart disease Grandparent Acute myocardial infarction, Onset Age: 80 Social History Social History Years smoked: 45 Smoking status: Former smoker Tobacco type: cigarettes Smoking end date: 07/15/21 Additional smoking assessment comments: quit 2 year ago Alcohol intake: current Alcohol use details: 2 per month Substance use: never Substance use type: does not use Lack of Transportation: No Lack of Food: Never True Current Housing: I Have Housing Concerned About Future Housing: No Difficulty Paying Gas/Electric Bills: No Difficulty Paying for Meds: No Currently Unemployed: No Education: High School Diploma/GED Difficulty w/ Childcare or Family Care: No Living arrangements: with family Occupation/Education: occupation 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 Spiritual care concerns: No Meds Home Medications and Allergies Home Medications Medication Instructions Recorded Confirmed Type cholecalciferol (vitamin D3) 25 3,000 unit PO DAILY 06/16/19 04/20/24 History mcg (1,000 unit) capsule omega-3 fatty acids 1,000 mg 2,000 mg PO DAILY 02/28/21 04/20/24 History capsule (Fish Oil Concentrate) ferrous sulfate 325 mg (65 mg 325 mg PO DAILY 07/19/22 04/20/24 History iron) tablet,delayed release magnesium oxide 500 mg capsule 500 mg PO BID PRN constipation 07/19/22 04/20/24 History meclizine 25 mg tablet 12.5 - 25 mg PO TID PRN dizziness 11/12/22 04/20/24 Rx #90 tabs omeprazole 20 mg tablet,delayed 20 mg PO BID 02/04/23 04/20/24 History release syringe with needle 3 mL 23 x 1 #20 ea 04/19/23 04/06/24 Rx (BD Eclipse Luer-Eleazar) hydrocodone 5 mg-acetaminophen 325 1 tablet PO Q6H PRN pain #7 tabs 05/31/23 04/20/24 Rx mg tablet semaglutide (weight loss) 0.25 0.25 mg (0.5 mL) subcut WEEKLY #2 06/03/23 04/20/24 Rx mg/0.5 mL subcutaneous pen mL injector (Wegovy) ubrogepant 100 mg tablet (Ubrelvy) 100 mg PO ONCE PRN migraine 06/03/23 04/20/24 History ondansetron HCl 4 mg tablet 4 mg PO Q8H PRN nausea and 06/24/23 04/20/24 Rx vomiting #20 tabs duloxetine 60 mg capsule,delayed 60 mg PO DAILY #90 caps 08/05/23 04/20/24 Rx release cyclobenzaprine 10 mg tablet 10 mg PO TID PRN muscle spasm #90 09/03/23 04/20/24 Rx tabs cyanocobalamin (vitamin B-12) 1,000 mcg subcut DIRECTED 04/06/24 04/20/24 History 1,000 mcg/mL injection kit fluticasone 500 mcg-salmeterol 50 See Rx Instructions .Route 04/06/24 04/20/24 History mcg/dose blistr powdr for .COMPLEX PRN Shortness Of Breath inhalation (Advair Diskus) Or Wheezing zolpidem 10 mg tablet (Ambien) 10 mg PO QHS 04/06/24 04/20/24 History levothyroxine 100 mcg tablet 100 mcg PO . q.a.m. #90 tabs 04/07/24 04/20/24 Rx Allergies Allergy/AdvReac Type Severity Reaction Status Date / Time No Known Allergies Allergy Verified 04/20/24 10:45 Vital Signs Vital Signs - 24 hr 04/20/24 10:46 Temperature 97.5 F L Pulse Rate 78 Respiratory Rate 20 Blood Pressure 182/103 H Pulse Oximetry 96 Oxygen Delivery Room Air Exam Const: General: cooperative and healthy appearing Resp: Effort & Inspection: normal respiratory effort and able to speak in complete sentences Auscultation: clear to auscultation bilaterally Cardio: Rate: regular rate Rhythm: regular rhythm GI: Inspection: normal to inspection GI Palp: No No hepatosplenomegaly present Auscultation: normal bowel sounds Rectal Exam: deferred Skin: General skin exam: normal color Psych: Appearance: grossly normal Mental Status: mental status grossly normal Assessment and Plan Assessment and plan (1) History of colonic polyps: Code(s): Z86.0100 - Personal history of colon polyps, unspecified Status: Acute Assessment and Plan: The patient is deemed a good candidate for the procedure. Consent signed. Will proceed.
[2024-04-20 11:44] VITALS: BP 136/75; PULSE 77; RESP 28; O2SAT 99
[2024-04-20 11:54] VITALS: BP 121/70; PULSE 76; RESP 24; TEMP 36.4; O2SAT 96
[2024-04-20 12:04] VITALS: BP 135/73; PULSE 65; RESP 18; O2SAT 96
== END 2024-04-20 12:21 | disposition home or self-care (01) ==
PROVIDERS: PCP Family Medicine; Visit Provider Internal Medicine Gastroenterology
PROC: 0DJD8ZZ Inspection of Lower Intestinal Tract, Via Natural or Artificial Opening Endoscopic (ICD-10-PCS; CPT 45378; principal; 2024-04-20 13:30)
DX: Z12.11 Encounter for screening for malignant neoplasm of colon (principal); D12.2 Benign neoplasm of ascending colon; K57.30 Diverticulosis of large intestine without perforation or abscess without bleeding; E78.5 Hyperlipidemia, unspecified; D50.9 Iron deficiency anemia, unspecified; E03.9 Hypothyroidism, unspecified; F32.A Depression, unspecified; G25.0 Essential tremor; K58.2 Mixed irritable bowel syndrome; E66.01 Morbid (severe) obesity due to excess calories; Z68.43 Body mass index [BMI] 50.0-59.9, adult; Z79.85 Long-term (current) use of injectable non-insulin antidiabetic drugs; Z87.891 Personal history of nicotine dependence
CPT/HCPCS: 45385; 88305; J2704; J7120

== ENCOUNTER 2024-08-20 16:14 | Observation (INO) | payer OTHER, SELFPAY ==
--- OUTSIDE RECORDS SUMMARY | 2024-08-20 16:18 | XMS_ITS | Clinical Summary ---
Author Organization [facility] Address [address] [place] [address] Dr. 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[employer] Gender Identity Not on file Sexual Orientation Not on file Plan of Treatment Health Maintenance Due Date Last Done Comments DTAP/TDAP/TD VACCINES (1 - Tdap) 1981 HPV/Cotest (21-29) 11/14/1983 PAP SMEAR 11/14/1983 CERVICAL CANCER SCREENING 1992 HPV/Cotest (30-65) 1992 PAP SMEAR 1992 COLORECTAL SCREENING 11/14/2007 Colorectal Cancer Screening 11/14/2007 FIT-DNA Q 3 years 11/14/2007 FIT/FOBT Q 1 year 11/14/2007 Flex Sig/CT Colonography Q 5 years 11/14/2007 ZOSTER VACCINE (1 of 2) 2012 BREAST CANCER SCREENING 12/19/2014 12/19/2013 INFLUENZA VACCINE (#1) 2023 RSV VACCINE (60+ or ) (1 - 1-dose 75+ series) 2037 PNEUMOCOCCAL VACCINE 0-49 YEARS Aged Out No longer eligible based on patient's age to complete this topic
--- OUTSIDE RECORDS SUMMARY | 2024-08-20 16:18 | XMS_ITS | Data Portability ---
Author Organization [facility] [place] Address [address] [place] [address] Care Team Providers Care Transportation Mechanic Name Role Phone GAVIOTAERON MIKEY Primary Care Provider Assessment Encounter Date Assessment Date Assessment LastModified by Organization Details LastModified Time 03/11/2023 03/11/2023 Annual gynecological exam performed. Patient will come back in a year unless there are new symptoms. [email or web address] Not available 03/11/2023 09:47:23 Plan of Treatment Reminders Order Date Submit Date Provider Last Modified By Organization Details Last Modified Time Details Appointments [facility]- EST 025 10:00AM ADI Duckworth Not available Not available Not available Lab None record ed. Referral None record ed. Procedures None record ed. Surgeries None record ed. Imaging None record ed. Medication Orders None record ed. Patient TargetsNo targets recorded. Patient InstructionsNo instructions recorded. Reason for Referral None Reported. Procedures Surgical History Date Name Laterality Status Provider Name and Address Organization Details Recorded Time 023 Date of Last Pap Smear completed Elena Luevano [facility] 03/11/2023 09:50:02 005 hysterectomy completed ADI Duckworth [address], [place], [address], [facility] 03/11/2023 11:04:47 990 cholecystectomy completed Elena Luevano [facility] 03/11/2023 13:45:14 979 Appendectomy completed Elena Luevano [facility] 03/11/2023 13:45:28 Imaging Results None recorded. Procedure Notes None recorded. Medical Equipment None Reported. Allergies No known drug allergies Medications Name Sig Start Date Stop Date Status Note LastModified by Organization Details LastModified Time quetiapine 25 mg tablet active Not Available Not Available No t Available cyclobenzapri ne 10 mg tablet active Not Available Not Available Not Available prednisone 10 mg tablet 03/11 completed Not Available Not Available Not Available azithromycin 250 mg tablet 03/11 completed Not Available Not Available Not Available sucralfate 1 gram tablet active Not Available Not Available Not Available acetaminophen 300 mg-codeine 30 mg tablet active Not Available Not Available No t Available levothyroxine 75 mcg tablet active Not Available Not Availabl e Not Available levothyroxine 100 mcg tablet active Not Available Not Available Not Available amoxicillin 875 mg tablet 03/11 completed Not Available Not Available Not Available pantoprazole 40 mg tablet,delaye d release active Not Available Not Available No t Available cyanocobalami n (vit B-12) 1,000 mcg/mL injection solution active Not Available Not Available Not Available Advair Diskus 500 mcg-50 mcg/dose powder for inhalation active Not Available Not Available N ot Available mupirocin 2 % topical ointment active Not Available Not Available Not Available zolpidem 10 mg tablet active Not Available Not Available No t Available albuterol sulfate HFA 90 mcg/actuation aerosol inhaler active Not Available Not Available Not Available escitalopram 20 mg tablet TAKE 1 TABLET BY MOUTH DAILY active Not Available Not Available No t Available duloxetine 30 mg capsule,delay ed release active Not Available Not Available N ot Available Advair HFA 230 mcg-21 mcg/actuation aerosol inhaler active Not Available Not Available Not Available aripiprazole 2 mg tablet active Not Available Not Available Not Available oseltamivir 45 mg capsule active Not Available Not Availabl e Not Available Vitals Date Recorded Body height Body mass index (BMI) Body weight Systolic blood pressure Diastolic blood pressure Provider Name and Address Organization Details Last Updated DateTime 03/11/2023 163.2 cm 53.1 kg/m2 368877.8 2 g 127 mm[Hg] 79 mm[Hg] Elena Luevano [facility] 09:48:54 Social History Question Answer Notes LastModified by Organizat ion Details LastModified Time Tobacco Smoking Status Former Smoker Elena Luevano [facility] 03/11/2023 13:44:38 What Is Your Level Of Alcohol Consumption? Occasional [email or web address] Information not available 03/11/2023 Are You Blind Or Do You Have Difficulty Seeing? No [email or web address] Information not available 03/11/2023 What Is Your Level Of Caffeine Consumption? Occasional [email or web address] Information not available 03/11/2023 In The 14 Days Before Symptom Onset, Have You Had Close Contact With A Laboratory-confir med COVID-19 While That Case Was Ill? No Information not available 03/11/2023 In The 14 Days Before Symptom Onset, Have You Had Close Contact With A Person Who Is Under Investigation For COVID-19 While That Person Was Ill? No [email or web address] Information not available 03/11/2023 Have You Been To An Area Known To Be High Risk For COVID-19? No [email or web address] Information not available 03/11/2023 Are You Deaf Or Do You Have Serious Difficulty Hearing? No [email or web address] Information not available 03/11/2023 What Type Of Diet Are You Following? REGULAR [email or web address] Information not available 03/11/2023 Have You Ever Been Counseled For Unhealthy Alcohol Use? No [email or web address] Information not available 03/11/2023 Do You Use Your Seat Belt Or Car Seat Routinely? Yes [email or web address] Information not available 03/11/2023 Do You Have Smoke And Carbon Monoxide Detectors In Your Home? Yes [email or web address] Information not available 03/11/2023 Do You Feel Stressed (tense, Restless, Nervous, Or Anxious, Or Unable To Sleep At Night)? [id number] [email or web address] Information not available 03/11/2023 Do You Use Any Illicit Or Recreational Drugs? No [email or web address] Information not available 03/11/2023 Do You Use Sunscreen Routinely? Yes [email or web address] Information not available 03/11/2023 Has Tobacco Cessation Counseling Been Provided? No [email or web address] Information not available 03/11/2023 Do You Or Have You Ever Used Any Other Forms Of Tobacco Or Nicotine? No [email or web address] Information not available 03/11/2023 Sex: Unknown Functional Status Question Answer Note LastModified by Organizat ion Details LastModified Time Do you have difficulty walking or climbing stairs? No [email or web address] Information not available 03/11/2023 Are you able to walk? YESWOREST [email or web address] Information not available 03/11/2023 Are you able to care for yourself? Yes [email or web address] Information not available 03/11/2023 Do you have difficulty dressing or bathing? No [email or web address] Information not available 03/11/2023 What is your exercise level? Occasional [email or web address] Information not available 03/11/2023 Mental Status None recorded. Family History Relationship Description Onset Age of this Age Resolved Age Notes LastModified by Organization Details LastModified Time Sister Malignant tumor of breast 70 [email or web address] Not available 03/11 13:41:05 Sister Disorder of thyroid gland [email or web address] Not available 03/11 13:43:35 Paternal Aunt Malignant tumor of breast [email or web address] Not available 03/11 13:41:11 Paternal Aunt Malignant tumor of ovary [email or web address] Not available 03/11 13:43:16 Mother Heart disease [email or web address] Not available 03/11 13:41:46 Mother Hypertensive disorder [email or web address] Not available 03/11 13:43:02 Mother Disorder of thyroid gland [email or web address] Not available 03/11 13:43:35 Father Heart disease [email or web address] Not available 03/11 13:41:46 Father Diabetes mellitus [email or web address] Not available 03/11 13:41:59 Father Hypercholest erolemia [email or web address] Not available 03/11 13:42:31 Father Hypertensive disorder [email or web address] Not available 03/11 13:43:02 Maternal Grandfather Heart disease [email or web address] Not available 03/11 13:41:46 Maternal Grandfather Hypercholest erolemia [email or web address] Not available 03/11 13:42:31 Maternal Grandfather Hypertensive disorder [email or web address] Not available 03/11 13:43:02 Brother Heart disease [email or web address] Not available 03/11 13:41:46 Brother Hypercholest erolemia [email or web address] Not available 03/11 13:42:31 Brother Hypertensive disorder Not available 03/11 13:43:02 Paternal Uncle Heart disease [email or web address] Not available 03/11 13:41:46 Medical History Condition Response Allergies (Food, seasonal, environmental ) Y Other Y Blood Transfusion N Drug/Latex Allergies/Reactions N Breast Cancer N Dermatologic Disorders N Lung Disease N Defects or Inherited Disease N Breast Problem N Gestational Diabetes N Hematologic disorders N Anesthesia Complications N History of STI N Deep Vein Thrombosis N Polycystic ovary syndrome N Anxiety Disorder Y Autoimmune disease N Arthritis N Infertility N Polyps N Acid Reflux (GERD) Y History of abnormal pap N Cancer N Stroke N Varicosities N Neurologic/Epilepsy N Endometriosis N High Cholesterol N Headaches N Fibromyalgia Y Kidney Disease N Heart Problems N Kidney or Bladder Problems N Thyroid Problems Y GI Problems Y Eating Disorder N Anemia Y Art (IVF or FET) N Psychiatric Illness N Ovarian Cancer N Diabetes N Pulmonary (TB, Asthma) N Hepatitis/Liver Disease N No Past Medical History N Eczema N Urinary Tract Infection N Abuse/Domestic Violence N Asthma Y Trauma/Violence N Depression/ depression Y Heart Disease N Pre-Eclampsia N Hypertension N Osteoporosis N Thrombophilias N Gynecological History Statement/Question Response Abnormal Pap N Date of Last Mammogram Date of LMP 05/20/2004 STIs/STDs N Date of DEXA bone scan Date of Last Pap Smear 03/11/2023 Current Control Method Hysterectom y LMP Approximate Obstetrics History GPAL:G 3 P 3 0 0 3 Type Value Full Term 3 Living 3 Total 3 Past Encounters Encounter ID Performer Location Encounter Start Date Encounter Closed Date Diagnosis/Indication Diagnosis SNOMED-CT Code Diagnosis ICD10 Code Diagnosis Note [id number] ADI Duckworth [place] [address] [address] 03/11/2023 09:07:42 03/11/2023 11:23:12 Gynecologic examination 54967026 Z01.419 WWEhx of hyst for non-cancer ous indication spaps d/c'd unless otherwise indicatedm ammogram scheduled for 05/2023 per ptcolonosc opy due next 2023UTD with PCPRTC in 1 yr or sooner if needed Take Calcium with Vitamin D daily.Do monthly self breast exams.It is advised to get annual flu shot in the fall and she could obtain at [facility] or [facility] take care clinic. If you haven't received the Tdap vaccine in the last 10 years you should obtain one as well.Have mammogram yearly, bone density every 2-3 years and colonoscop y every 5-10 years depending on findings and history.En safia in daily exercise of low impact aerobic exercise 45-60 minutes 4-5 times weekly. Avoid tobacco and illicit drugs as well as using moderation with alcohol intake less than 1-2 8 oz beverages daily. This lifestyle behavior pattern will lead to less health conditions and longer life span. If BMI greater than 25 dietary consult advised.Qu estions have been answered. Patient appears to understand instructio ns, but if you have any further questions call or respond to this email Health Concerns Section Related Observation LastModified by Organization Detai ls LastModified Time None Recorded Concern Status LastModified by Organization Details LastModified Time None Recorded Advance Directives Directive None Recorded Payers Encounter Date Sequence Insurance Name Policy Number Policy Luu Covered Member ID Luu Member ID Guarantor Name 03/11/2023 1 [employer] (MEDICARE REPLACEMENT PPO) [id number] October Michael Mcgovern [id number] 21 October Froilan Notes Date Note Type Note Provider Name and Address Organization Details Recorded Time 03/11/2023 text/html Annual Safety Teacher Post-MenopausalRepo rted bypatient.Menopausa l Symptoms:no menopausal symptoms; normal vaginal lubrication Vaginal Bleeding:history of menopause having occurred; no history of post menopausal bleeding Urinary Symptoms:no hematuria; no incontinence; no nocturia; no urinary frequency Vulva:no genital lesion; no vulvar atrophy Vagina:normal vaginal discharge; no vaginal atrophy Breast:no breast lump; no nipple discharge; no breast pain Sexual Complaints:no sexual complaints Psychological Symptoms:no depression; no anxiety Preventive Measures:encourage regular mammograms starting age 40; encourage self breast examination; encourage regular exercise; encourage no tobacco use; needs to schedule mammogram; history of recent colonoscopyNotes:hx of hyst in 2004 for prolapse, non-cancerous indicationsno hx of abnormal papsmammogram last 2018colonoscopy last 2020 (polyps, told to repeat in 2023) ADI Duckworth [address], [place], [address], [place] [facility] 03/11/2023 11:05:07 OBGyn Episode Ob Episode Information Episode Created Date Number of Fetuses Patient Bloodtype Patient rh Status Prepregnancy Weight lbs Domestic Partner Domestic Partner Phone Father Name Oil Analyst Status 03/11/20 1 CLOSED Fetus Data First Name Last Name Admitted to NICU Weight (g) Sex Living Outcome Pediatric Complications Fetus ID Race Codes Race Delivery Type 3798.83 3 M Full Term [id number] Vaginal Delivery Jamey Calculation Initial Jamey Date Initial Exam Date Initial Exam Provider Initial Ultrasound Date Last Menstrual Period Date Ultra Sound Weeks Gestation 0 Eighteen To Twenty Week Jamey Update Ultra Sound Date Fundal Height At Umbil Quickening Date Ultra Sound Latest Weeks Gestation Final Jamey Confirmed By Final Jamey Confirmed Date Final Jamey Date Ultra Sound Latest Days Gestation 0 0 Menstrual History Last Menstrual Date Menses Monthly On Bcp Conception Prior Menses Frequency Hcg Plus Date Menarche Onset Age Delivery Information Delivery Date Delivery Type Labor Anesthesia Weeks Gestation Incision Type Labor Labor Length Hrs Delivered By Post Complications Tubal Sterilization Discharge Date Comments 6 38 Discharge Information Feeding Method Contraceptive Method Maternal HG B and HCT Levels Ob Episode Information Episode Created Date Number of Fetuses Patient Bloodtype Patient rh Status Prepregnancy Weight lbs Domestic Partner Domestic Partner Phone Father Name Oil Analyst Status 03/11/20 1 CLOSED Fetus Data First Name Last Name Admitted to NICU Weight (g) Sex Living Outcome Pediatric Complications Fetus ID Race Codes Race Delivery Type 3203.26 6704 F Full Term [id number] Vaginal Delivery Jamey Calculation Initial Jamey Date Initial Exam Date Initial Exam Provider Initial Ultrasound Date Last Menstrual Period Date Ultra Sound Weeks Gestation 0 Eighteen To Twenty Week Jamey Update Ultra Sound Date Fundal Height At Umbil Quickening Date Ultra Sound Latest Weeks Gestation Final Jamey Confirmed By Final Jamey Confirmed Date Final Jamey Date Ultra Sound Latest Days Gestation 0 0 Menstrual History Last Menstrual Date Menses Monthly On Bcp Conception Prior Menses Frequency Hcg Plus Date Menarche Onset Age Delivery Information Delivery Date Delivery Type Labor Anesthesia Weeks Gestation Incision Type Labor Labor Length Hrs Delivered By Post Complications Tubal Sterilization Discharge Date Comments 2 40 Discharge Information Feeding Method Contraceptive Method Maternal HG B and HCT Levels Ob Episode Information Episode Created Date Number of Fetuses Patient Bloodtype Patient rh Status Prepregnancy Weight lbs Domestic Partner Domestic Partner Phone Father Name Oil Analyst Status 03/11/20 23 1 CLOSED Fetus Data First Name Last Name Admitted to NICU Weight (g) Sex Living Outcome Pediatric Complications Fetus ID Race Codes Race Delivery Type 4195.72 6 F Full Term [id number] Vaginal Delivery Jamey Calculation Initial Jamey Date Initial Exam Date Initial Exam Provider Initial Ultrasound Date Last Menstrual Period Date Ultra Sound Weeks Gestation 0 Eighteen To Twenty Week Jamey Update Ultra Sound Date Fundal Height At Umbil Quickening Date Ultra Sound Latest Weeks Gestation Final Jamey Confirmed By Final Jamey Confirmed Date Final Jamey Date Ultra Sound Latest Days Gestation 0 0 Menstrual History Last Menstrual Date Menses Monthly On Bcp Conception Prior Menses Frequency Hcg Plus Date Menarche Onset Age Delivery Information Delivery Date Delivery Type Labor Anesthesia Weeks Gestation Incision Type Labor Labor Length Hrs Delivered By Post Complications Tubal Sterilization Discharge Date Comments 05/05/199 0 42 Discharge Information Feeding Method Contraceptive Method Maternal HG B and HCT Levels
--- OUTSIDE RECORDS SUMMARY | 2024-08-20 16:18 | XMS_ITS | Clinical Summary ---
Author Organization [facility] Address [address] [place] [address] Care Team Providers Care Removable Prosthodontist Name Role Phone Farhan Irene MD Primary Care Provider [phone] Allergies No known active allergies Medications vitamin S49-umhpfgu B1 (NERVIDOX) 1,000-100 mg/mL solution 0 2 Active cholecalciferol (VITAMIN D3) 2,000 unit capsule 1 po QD 0 0 Active omeprazole (PriLOSEC) 20 mg capsule take 1 capsule by oral route 2 times every day before a meal 0 0 6 Active Additional Information Patient not taking.Reported on 05/04/2022 omega-3 fatty acids-fish oil 340-1,000 mg capsule take as directed 0 6 Active sodium, potassium & mag sulfates (SUPREP BOWEL PREP KIT) 17.5-3.13-1.6 gram recon soln Mix one bottle of suprep with water and drink at 4pm, repeat and drink at 10pm 1 0 6 Active Additional Information Patient not taking.Reported on 05/04/2022 levothyroxine (SYNTHROID, LEVOTHROID) 75 mcg tablet TAKE ONE TABLET BY MOUTH DAILY 90 0 0 Active linaclotide (LINZESS) 145 mcg capsule take 1 cap po QD on an empty stomach at least 30 minutes before 1st meal of the day swallowing whole. 90 1 6 Active Additional Information Patient not taking.Reported on 05/04/[address] (PROTONIX) 40 mg EC tablet 2 Active QUEtiapine (SEROquel) 25 mg tablet 2 Active Advair HFA 230-21 mcg/actuation inhaler 2 Active escitalopram (LEXAPRO) 20 mg tablet Take 20 mg by mouth bedtime Active cyclobenzaprine (FLEXERIL) 10 mg tablet 2 Active Active Problems Problem Noted Date Diagnosed Date Dizziness 05/04/2022 Shortness of breath 05/04/2022 Morbid obesity 05/04/2022 Hypothyroidism 05/04/2022 Non-toxic multinodular goiter 10/03/2013 Overview (08/23/2016): NONTOX MULTINODUL GOITER Thyroiditis 08/12/2012 Overview (08/24/2016): Thyroiditis Surgical History Surgery Date Site/Laterality Comments TONSILLECTOMY Tonsillectomy CHOLECYSTECTOMY Cholecystectomy HYSTERECTOMY Hysterectomy APPENDECTOMY Appendectomy Medical History Medical History Date Comments Disorder of thyroid Thyroid dise ase Family History Medical History Relation Name Comments Alcohol abuse Father Family history of alcoholism - (Added by TW Conv) Arthritis Father Family history of arthritis - (Added by TW Conv) Diabetes Father Family history of diabetes mellitus - (Added by TW Conv) Hypertension Father Family history of hypertension - (Added by TW Conv) Stroke Father Family history of cerebrovascular accident (CVA) - (Added by TW Conv) Arthritis Mother Family history of arthritis - (Added by TW Conv) Heart disease Mother Family history of cardiac disorder - (Added by TW Conv) Hypertension Mother Family history of hypertension - (Added by TW Conv) Hypothyroidism Other Family histor y of Hypothyroidism; Relation Name Status Comments Father Mother Other Social History Tobacco Use Types Packs/Day Years Used Date Smoking Tobacco: Former Cigarettes Tobacco Cessation:Counseling Given: Not Answered Comments:Smoking History Packs/day: 3 Cigarettes Alcohol Use Standard Drinks/Week Comments Yes 0 (1 standard drink = 0.6 oz pur e alcohol) Comments Unknown Sex and Gender Information Value Date Recorded Sex Assigned at Not on file Legal Sex Female 12:43 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 Gender Identity Not on file Sexual Orientation Not on file Obstetrics History Last Filed Vital Signs Vital Sign Reading Time Taken Comments Blood Pressure 130/84 05/04/2022 3:16 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 Pulse 101 05/04/2022 3:16 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 Temperature - - Respiratory Rate - - Oxygen Saturation 97% 05/04/2022 3:16 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 Inhaled Oxygen Concentration - - Weight 143.3 kg (316 lb) 05/04/2022 3:16 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 Height 162.6 cm (5' 4 ) 05/04/2022 3:16 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 Body Mass Index 54.24 05/04/2022 3:16 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 Plan of Treatment Health Maintenance Due Date Last Done Comments Depression Screening 1962 Hepatitis C Screening 1962 DTaP/Tdap/Td Vaccine (1 - Tdap) 1973 Hepatitis B Screening 1980 Regular Well Visit/Exam 18-64 1980 Zoster Vaccine (1 of 2) 2012 Breast Cancer Screening-Mammogram 08/13/2019 08/12/2018, 08/13/2017, 08/13/2016, Additional history exists Covid-19 Vaccine ( season) 2024 03/29/2022, 04/09/2021, 07/22/2020 Influenza Vaccine (#1) 2024 , 04/09/2021, 03/21/2020 Colon Cancer Screening-Colonoscopy 12/11/2025 12/12/2015 Colon Cancer Screening-CT Colonography Discontinued 12/12/2015 Colon Cancer Screening-DNA Stool Discontinued 12/12/2015 Colon Cancer Screening-FIT Discontinued 12/12/2015 Colon Cancer Screening-Sigmoidoscopy Discontinued 12/12/2015 Pneumococcal vaccine <65 Aged Out No longer eligible based on patient's age to complete this topic Procedures Procedure Name Priority Date/Time Associated Diagnosis Comments SCREENING MAMMOGRAM BILATERAL W REGAN Schedule Routine, Read Routine (OP Routine) 08/12/2018 9:48 AM CDT Encounter for screening mammogram for malignant neoplasm of breast COLONOSCOPY REPORT 12/12/2015 from Last 3 Months or Most Recently Relevant to Health Maintenance Results * Screening Mammogram Bilateral W Regan (08/12/2018 9:48 AM CDT) Anatomical Region Laterality Modality Breast Bilateral Mammography Narrative 08/18/2018 9:47 AM CDT Mammogram Technique: Bilateral Digital Breast Tomosynthesis, Bilateral C-view 2D Screening mammogram. Views obtained: bilateral craniocaudal and bilateral mediolateral oblique. Computer Aided Detection was performed. Mammogram Findings: The present examination has been compared to prior imaging studies performed at [facility] on 08/08/2015, 08/13/2016 and 08/13/2017. There are scattered areas of fibroglandular density. There is no suspicious abnormality in either breast. Impression: Annual screening mammography is recommended. OVERALL FINAL ASSESSMENT: BI-RADS CATEGORY 1: Negative. Procedure Note Meron Hurd MD - 08/18/2018 Mammogram Technique: Bilateral Digital Breast Tomosynthesis, Bilateral C-view 2D Screening mammogram. Views obtained: bilateral craniocaudal and bilateral mediolateral oblique. Computer Aided Detection was performed. Mammogram Findings: The present examination has been compared to prior imaging studies performed at [facility] on08/08/2015, 08/13/2016 and 08/13/2017. There are scattered areas of fibroglandular density. There is no suspicious abnormality in either breast. Impression: Annual screening mammography is recommended. OVERALL FINAL ASSESSMENT: BI-RADS CATEGORY 1: Negative. Farhan Irene MD IMG MAMMO PROCEDURES Arlene l Result * COLONOSCOPY REPORT (12/12/2015) Anatomical Region Laterality Modality Other Narrative 12/12/2015 Ordered by an unspecified provider. Historical Provider GI PROCEDURE ORDERABLES F inal Result from Last 3 Months or Most Recently Relevant to Health Maintenance Insurance [facility] PL[facility] Care Teams Removable Prosthodontist Relationship Specialty Start Date End Date Farhan Irene MD [address] [address] PCP - General Family Medicine 05/04/22
--- OUTSIDE RECORDS SUMMARY | 2024-08-20 16:18 | XMS_ITS | Referral Summary ---
Author Organization [facility] Address [address] [place] [address] Care Team Providers Care Site Lead Name Role Phone Farhan Irene MD Primary Care Provider [phone] [phone] Allergies No known active allergies Medications vitamin Z62-kyxyvgt B1 (NERVIDOX) 1,000-100 mg/mL solution 0 2 [...] MULTINODUL GOITER Thyroiditis 08/12/2012 Overview (08/24/2016): Thyroiditis Social History Tobacco Use Types Packs/Day Years Used Date Smoking Tobacco: Former Cigarettes Tobacco Cessation:Counseling Given: Not Answered Comments:Smoking History Packs/day: 3 Cigarettes Alcohol Use Standard Drinks/Week Comments Yes 0 (1 standard drink = 0.6 oz pur e alcohol) Comments Unknown Sex and Gender Information Value Date Recorded Sex Assigned at Not on file Legal Sex Female 12:43 PM RESISTANCE WELDER Gender Identity Not on file Sexual Orientation Not on file Last Filed Vital Signs Vital Sign Reading Time Taken Comments Blood Pressure 130/84 05/04/2022 3:16 PM RESISTANCE WELDER Pulse 101 05/04/2022 3:16 PM RESISTANCE WELDER Temperature - - Respiratory Rate - - Oxygen Saturation 97% 05/04/2022 3:16 PM RESISTANCE WELDER Inhaled Oxygen Concentration - - Weight 143.3 kg (316 lb) 05/04/2022 3:16 PM RESISTANCE WELDER Height 162.6 cm (5' 4 ) 05/04/2022 3:16 PM RESISTANCE WELDER Body Mass Index 54.24 05/04/2022 3:16 PM RESISTANCE WELDER Plan of Treatment Not on file Procedures Procedure Name Priority Date/Time Associated Diagnosis [...] compared to prior imaging studies performed at [facility] on 08/08/2015, 08/13/2016 and [...] compared to prior imaging studies performed at [facility] on08/08/2015, 08/13/2016 and 08/13/2017. [...] Most Recently Relevant to Health Maintenance Insurance AETNA [facility] HMO/PPO Address: [address] [place] [address] CHOICE PLUS [facility] HMO/PPO Address: [address] [address] [place] [address] Care Teams Site Lead Relationship Specialty Start Date End Date Farhan Irene MD [address] [address] PCP - General Family Medicine 05/04/22
--- OUTSIDE RECORDS SUMMARY | 2024-08-20 16:18 | XMS_ITS | Encounter Summary ---
Author Organization [facility] Address [address] [place] [address] Care Team Providers Care Concrete Pipe Plant Supervisor Name Role Phone Unavailable Primary Care Provider Unavailabl e Encounter Details Date Type Department Care Team (Latest Contact Info) Description 05/07/2005 Inpatient Historical [facility] (Excluded Provider) Arnaud Boles MD NO ADDRESS ON FILE UTERVAGINAL PROLAPSE NOS (Primary Dx) Social History Tobacco Use Types Packs/Day Years Used Date Smoking Tobacco: Never Assessed Comments Unknown Sex and Gender Information Value Date Recorded Sex Assigned at Not on file Legal Sex Female 4:51 AM DICTAPHONE TYPIST Gender Identity Not on file Sexual Orientation Not on file documented as of this encounter Plan of Treatment Not on file documented as of this encounter Procedures Procedure Name Priority Date/Time Associated Diagnosis Comments CBC WITH DIFFERENTIAL Routine 05/08/2005 5:50 AM DICTAPHONE TYPIST CBC WITH DIFFERENTIAL Routine 05/08/2005 5:50 AM DICTAPHONE TYPIST POC , URINE Routine 05/07/2005 6:45 AM DICTAPHONE TYPIST documented in this encounter Results * (ABNORMAL) CBC WITH DIFFERENTIAL (05/08/2005 5:50 AM DICTAPHONE TYPIST) NEUTROPHILS 82(H) 45 - 70 % INTERFAC E SYSTEM LYMPHOCYTES 10(L) 16 - 45 % INTERFAC E SYSTEM MONOCYTES 8 3 - 13 % INTERFACE SYSTEM EOSINOPHILS 0 0 - 7 % INTERFAC E SYSTEM BASOPHILS 0 0 - 2 % INTERFACE SYSTEM NEUTROPHIL ABSOLUTE 11.12(H) 1.90 - 7.00 K/uL INTERFACE SYSTEM LYMPHOCYTE ABSOLUTE 1.34 0.70 - 4.50 K/uL INTERFACE SYSTEM MONOCYTE ABSOLUTE 1.14 0.10 - 1.30 K/uL INTERFACE SYSTEM EOSINOPHIL ABSOLUTE 0.01 0.00 - 0.70 K/uL INTERFACE SYSTEM BASOPHILS ABSOLUTE 0.01 0.00 - 0.20 K/uL INTERFACE SYSTEM 05/08/2005 5:50 AM DICTAPHONE TYPIST us Arnaud Rodriguez (Excluded Provider) Elvi RUSSO HEMATOL OGZaid ORDERABLES Final Result INTERFACE SYSTEM Refer to clinic/hospital department * (ABNORMAL) CBC WITH DIFFERENTIAL (05/08/2005 5:50 AM DICTAPHONE TYPIST) WBC 13.6(H) 4.0 - 9.8 K/uL INTERFACE SYSTEM RBC 3.85(L) 3.90 - 4.90 M/uL INTERFACE SYSTEM HEMOGLOBIN 11.6(L) 11.8 - 14.8 g/dL INTERFACE SYSTEM HEMATOCRIT 34.8(L) 35.5 - 44.0 % INTERFACE SYSTEM MCV 90.4 82.0 - 99.0 fL INTERFACE SYSTEM MCH 30.1 27.2 - 32.6 pg INTERFACE SYSTEM MCHC 33.3 31.5 - 35.5 % INTERFACE SYSTEM RDW 12.6 11.5 - 14.5 % INTERFACE SYSTEM RDW-STDEV 41.7 37.1 - 48.7 fL INTERFACE SYSTEM PLATELETS 280 140 - 350 K/uL INTERFACE SYSTEM MPV 9.6 9.3 - 12.4 fL INTERFACE SYSTEM 05/08/2005 5:50 AM DICTAPHONE TYPIST Result Gwyn Rodriguez (Excluded Provider) Elvi WOOD OGZaid ORDERABLES Final Result Performing Organization Address City/[facility]/ZIP Co de Phone Number INTERFACE SYSTEM Refer to clinic/hospital department * POC , URINE (05/07/2005 6:45 AM DICTAPHONE TYPIST) HCG QUAL URINE Negative Negative INTER FACE SYSTEM SPECIFIC GRAVITY UA 1.020 1.001 - 1.035 INTERFACE SYSTEM 05/07/2005 6:45 AM DICTAPHONE TYPIST Result Gwyn Rodriguez (Excluded Provider) Elvi RUSSO POINT O F CARE TESTING Final Result INTERFACE SYSTEM Refer to clinic/hospital department documented in this encounter Visit Diagnoses Diagnosis Uterovaginal prolapse, unspecified- Primary documented in this encounter
--- OUTSIDE RECORDS SUMMARY | 2024-08-20 16:18 | XMS_ITS | CONTINUITY OF CARE DOCUMENT ---
Author Name marilin gaston Address Unknown Organization [facility] Address [address] [place] [address] Phone [phone] Care Team Providers Care Corduroy Cutter Operator Name Role Phone Carrie RUSSO, Jamie Unavailable JAMIE SAUCEDO MD Unavailable Unavailable MIKEY RODRIGUES MD Unavailable INSURANCE PROVIDERS Payer name Policy type / Coverage type [place] red democrat ID AETNA [facility] Other [id number]
[2024-08-20 16:21] VITALS: BP 154/78; PULSE 72; RESP 20; TEMP 36.6; O2SAT 96
--- OUTSIDE RECORDS SUMMARY | 2024-08-20 17:43 | XMS_ITS | Clinical Summary ---
Author Organization [facility] Address [address] [place] [address] Care Team Providers Care Hardwood Floor Installer Name Role Phone Farhan Irene MD Primary Care Provider [phone] [phone] Allergies No known active allergies Medications vitamin H55-xhefxgp B1 (NERVIDOX) 1,000-100 mg/mL solution 0 2 [...] on file Legal Sex Female 12:43 PM WIRING INSPECTOR Gender Identity Not on file Sexual Orientation Not on file Obstetrics History Last Filed Vital Signs Vital Sign Reading Time Taken Comments Blood Pressure 130/84 05/04/2022 3:16 PM WIRING INSPECTOR Pulse 101 05/04/2022 3:16 PM WIRING INSPECTOR Temperature - - Respiratory Rate - - Oxygen Saturation 97% 05/04/2022 3:16 PM WIRING INSPECTOR Inhaled Oxygen Concentration - - Weight 143.3 kg (316 lb) 05/04/2022 3:16 PM WIRING INSPECTOR Height 162.6 cm (5' 4 ) 05/04/2022 3:16 PM WIRING INSPECTOR Body Mass Index 54.24 05/04/2022 3:16 PM WIRING INSPECTOR Plan of Treatment Health Maintenance Due Date [...] compared to prior imaging studies performed at [facility] on 08/08/2015, 08/13/2016 and [...] compared to prior imaging studies performed at [facility] on08/08/2015, 08/13/2016 and 08/13/2017. [...] Most Recently Relevant to Health Maintenance Insurance [facility] CHOICE PLUS Care Teams Hardwood Floor Installer Relationship Specialty Start Date End Date Farhan Irene MD [address] [address] PCP - General Family Medicine 05/04/22
--- OUTSIDE RECORDS SUMMARY | 2024-08-20 17:43 | XMS_ITS | Clinical Summary ---
Author Organization [facility] Address [address] [place] [address] Dr. Vasquezn: Epic Prelude ADT [place] [address] Care Team Providers Care Cashier Host/Hostess Name Role Phone Unavailable Primary Care Provider Unavailabl e Social History Tobacco Use Types Packs/Day Years Used Date Smoking Tobacco: Never Assessed Comments Unknown Sex and Gender Information Value Date Recorded Sex Assigned at Not on file Legal Sex Female 4:51 AM CHILD CARE WORKER Gender Identity Not on file Sexual Orientation [...]
--- OUTSIDE RECORDS SUMMARY | 2024-08-20 17:43 | XMS_ITS | Referral Summary ---
Author Organization [facility] Address [address] [place] [address] Care Team Providers Care Manipulator Operator Name Role Phone Farhan Irene MD Primary Care Provider [phone] [phone] Allergies No known active allergies Medications vitamin Q36-njpvjxr B1 (NERVIDOX) 1,000-100 mg/mL solution 0 2 [...] on file Legal Sex Female 12:43 PM FIRE MANAGEMENT OFFICER Gender Identity Not on file Sexual Orientation Not on file Last Filed Vital Signs Vital Sign Reading Time Taken Comments Blood Pressure 130/84 05/04/2022 3:16 PM FIRE MANAGEMENT OFFICER Pulse 101 05/04/2022 3:16 PM FIRE MANAGEMENT OFFICER Temperature - - Respiratory Rate - - Oxygen Saturation 97% 05/04/2022 3:16 PM FIRE MANAGEMENT OFFICER Inhaled Oxygen Concentration - - Weight 143.3 kg (316 lb) 05/04/2022 3:16 PM FIRE MANAGEMENT OFFICER Height 162.6 cm (5' 4 ) 05/04/2022 3:16 PM FIRE MANAGEMENT OFFICER Body Mass Index 54.24 05/04/2022 3:16 PM FIRE MANAGEMENT OFFICER Plan of Treatment Not on file Procedures [...] compared to prior imaging studies performed at [facility] on 08/08/2015, 08/13/2016 [...] compared to prior imaging studies performed at [facility] on08/08/2015, 08/13/2016 and [...] Relevant to Health Maintenance Insurance AETNA [facility] HMO/PPO Address: [address] [place] [address] CHOICE PLUS Care Teams Manipulator Operator Relationship Specialty Start Date End Date Farhan Irene MD [address] [address] PCP - General Family Medicine 05/04/22
--- OUTSIDE RECORDS SUMMARY | 2024-08-20 17:43 | XMS_ITS | CONTINUITY OF CARE DOCUMENT ---
Author Name marilin gaston Address Unknown Organization [facility] Address [address] [place] [address] Phone [phone] Care Team Providers Care Stain Maker Name Role Phone Carrie RUSSO, Jamie Unavailable JAMIE SAUCEDO MD Unavailable Unavailable MIKEY RODRIGUES MD Unavailable INSURANCE PROVIDERS Payer name Policy type / Coverage type [place] red libertarian ID AETNA [facility] Other [id number]
--- OUTSIDE RECORDS SUMMARY | 2024-08-20 17:43 | XMS_ITS | Encounter Summary ---
Author Organization [facility] Address [address] [place] [address] Care Team Providers Care Business Executive Name Role Phone Unavailable Primary Care Provider [...] on file Legal Sex Female 4:51 AM MACHINIST INSTRUCTOR Gender Identity Not on file Sexual Orientation Not on file documented as of this encounter Plan of Treatment Not on file documented as of this encounter Procedures Procedure Name Priority Date/Time Associated Diagnosis Comments CBC WITH DIFFERENTIAL Routine 05/08/2005 5:50 AM MACHINIST INSTRUCTOR CBC WITH DIFFERENTIAL Routine 05/08/2005 5:50 AM MACHINIST INSTRUCTOR POC , URINE Routine 05/07/2005 6:45 AM MACHINIST INSTRUCTOR documented in this encounter Results * (ABNORMAL) CBC WITH DIFFERENTIAL (05/08/2005 5:50 AM MACHINIST INSTRUCTOR) NEUTROPHILS 82(H) 45 - 70 % INTERFAC [...] 0.20 K/uL INTERFACE SYSTEM 05/08/2005 5:50 AM MACHINIST INSTRUCTOR us Arnaud Rodriguez (Excluded Provider) Elvi RUSSO HEMATOL OGZaid ORDERABLES Final Result INTERFACE SYSTEM Refer to clinic/hospital department * (ABNORMAL) CBC WITH DIFFERENTIAL (05/08/2005 5:50 AM MACHINIST INSTRUCTOR) WBC 13.6(H) 4.0 - 9.8 K/uL INTERFACE [...] 12.4 fL INTERFACE SYSTEM 05/08/2005 5:50 AM MACHINIST INSTRUCTOR Result Gwyn Rodriguez (Excluded Provider) Elvi WOOD OGZaid ORDERABLES Final Result Performing Organization Address City/[facility]/ZIP Co de Phone Number INTERFACE SYSTEM Refer to clinic/hospital department * POC , URINE (05/07/2005 6:45 AM MACHINIST INSTRUCTOR) HCG QUAL URINE Negative Negative INTER FACE SYSTEM SPECIFIC GRAVITY UA 1.020 1.001 - 1.035 INTERFACE SYSTEM 05/07/2005 6:45 AM MACHINIST INSTRUCTOR Result Gwyn Rodriguez (Excluded Provider) Elvi RUSSO POINT O F CARE TESTING Final Result INTERFACE SYSTEM Refer to clinic/hospital department documented in this encounter Visit Diagnoses Diagnosis Uterovaginal prolapse, unspecified- Primary documented in this encounter
--- NOTE | 2024-08-20 17:45 | ED.GIBLEED ---
HPI - GI Bleed General Chief complaint: GI Bleed <Staci Jose APRN - Last Filed: 08/20/24 19:50> Stated complaint: Sent by GI for hemorrhoid pain-saw yesterday <Staci Jose APRN - Last Filed: 08/20/24 19:50> Time Seen by Provider: 08/20/24 17:25 <Staci Jose APRN - Last Filed: 08/20/24 19:50> History of Present Illness HPI Narrative: Patient is a 63-year-old female who presents to the ER with complaints hemorrhoids. She reports she went to her GI doctor yesterday who was unable to do a rectal exam due to the swelling. Patient reports she was sent home with tramadol and numbing cream. She reports her pain has continued through today and she continues to notice drops blood on pad in her underwear. Patient describes the pain as ?throbbing. She reports her last bowel movement was this morning and it caused severe rectum pain. Pt denies any recent fevers, urinary symptoms, abdominal pain, lower extremity pain. <Staci Jose APRN - Last Filed: 08/20/24 19:50> Related Data Home medications: Home Medications ?Medication ?Instructions ?Recorded ?Confirmed ?Last Taken ?Type cholecalciferol (vitamin D3) 25 3,000 unit PO DAILY 06/16/19 08/20/24 04/19/24 History mcg (1,000 unit) capsule omega-3 fatty acids 1,000 mg 2,000 mg PO DAILY 02/28/21 08/20/24 04/19/24 History capsule (Fish Oil Concentrate) ferrous sulfate 325 mg (65 mg 325 mg PO DAILY 07/19/22 08/20/24 04/19/24 History iron) tablet,delayed release magnesium oxide 500 mg capsule 500 mg PO BID PRN constipation 07/19/22 08/20/24 04/19/24 History omeprazole 20 mg tablet,delayed 20 mg PO BID 02/04/23 08/20/24 04/19/24 History release ubrogepant 100 mg tablet (Ubrelvy) 100 mg PO ONCE PRN migraine 06/03/23 08/20/24 04/19/24 History cyanocobalamin (vitamin B-12) 1,000 mcg subcut DIRECTED 04/06/24 08/20/24 04/19/24 History 1,000 mcg/mL injection kit fluticasone 500 mcg-salmeterol 50 See Rx Instructions .Route 04/06/24 08/20/24 04/19/24 History mcg/dose blistr powdr for .COMPLEX PRN Shortness Of Breath inhalation (Advair Diskus) Or Wheezing <Staci Jose APRN - Last Filed: 08/20/24 19:50> Allergies/Adverse reactions: Allergies Allergy/AdvReac Type Severity Reaction Status Date / Time No Known Allergies Allergy Verified 08/20/24 18:20 <Staci Jose APRN - Last Filed: 08/20/24 19:50> Review of Systems Review of Systems: All systems reviewed & are unremarkable except as noted in HPI and below <Staci Jose APRN - Last Filed: 08/20/24 19:50> [facility] Past Medical History Medical History: Medical History Rectal bleeding Rectal pain Rectal mass Neck pain Benign essential tremor Weakness of left upper extremity (~05/2023) EKG on 08/05/2023 with sinus rhythm with nonspecific ST T wave changes unchanged from previous EKG 11/08/2022. Migraine headache without aura (05/31/23) MRI of the brain on 12/24/2023 unremarkable. Acute non-recurrent maxillary sinusitis Pharyngitis Acute bronchitis Abnormal fasting glucose (01/16/22) fasting glucose 106 with hemoglobin A1c 5.7 on 01/16/2022. fasting glucose 93 with hemoglobin A1c 5.4 on 09/18/2022. Glucose 88 with hemoglobin A1c 5.7 on 02/04/2023. glucose 102 with hemoglobin A1c 4.8 on 07/29/2023. glucose 93 with hemoglobin A1c 5.7 and GFR 78 on 03/09/2024. Nasal folliculitis Arthritis History of tobacco abuse Dizziness Chest pain Exercise stress test on 02/08/2022 was negative for ischemia. Transesophageal echocardiogram on 02/08/2022 with LVH and grade 1 diastolic dysfunction. History of COVID-19 Dyspnea Normal pulmonary function test on 02/02/2022. Cough Morbid obesity with BMI of 50.0-59.9, adult Screening for diabetes mellitus Muscle cramps Magnesium 2.0 on 03/09/2024. Urinary frequency Fatigue TSH 0.83, free T4 1.3, hemoglobin 15.5 on 03/09/2024. Anemia Left shoulder pain Right wrist pain COVID-19 long hauler manifesting chronic dyspnea (~05/2021) Aspiration pneumonia (07/15/21) Syncope and collapse (07/15/21) EEG on 08/07/2021 was normal. No seizure activity. MRI of the brain on 08/08/2021 was normal. COVID-19 positive rapid test 05/12/2021 Hyperlipidemia total cholesterol 208, HDL 66, triglycerides 134, LDL 117 on 01/16/2022. Cholesterol 223, triglycerides 95, HDL 80, LDL 123 with ratio 2.8 on 02/04/2023. Cholesterol 210, triglycerides 162, HDL 63, LDL 119 with ratio 3.3 on 03/09/2024. Abnormal bowel habits Lower abdominal pain Upper abdominal pain Tobacco use disorder, continuous Patient quit smoking 2021. Peptic ulcer disease History of peptic ulcer disease with normal EGD on 03/15/2021 with 4 cm hiatal hernia. Biopsies obtained Polyp of colon (03/15/21) 12 mm polyp of the cecum on colonoscopy with Dr. Castillo 03/15/2021 with recheck in 3 years. External hemorrhoids noted. 7 mm flat Tubulovillous adenoma polyp ascending colon on colonoscopy 04/20/2024 with recheck in 7 years. Breast cancer screening by mammogram Normal mammogram 10/03/2023. Dysphagia modified barium swallow was normal 08/03/2021 Abdominal pain Iron deficiency anemia, unspecified Labs on 02/11/2021 with iron 34, 7% saturation, and ferritin 4 with hemoglobin 11.1. Iron low at 34 with 7% saturation and ferritin 6 on 01/16/2022. iron 245 with 48% saturation and ferritin 9 on 09/18/2022. Iron 57 with 13% saturation and ferritin 15 with hemoglobin 14.6 on 02/04/2023. Iron 49 with 12% saturation and ferritin 14 with hemoglobin 15.1 on 07/29/2023. Iron 84 with 23% saturation and ferritin 24 with hemoglobin 15.5 on 03/09/2024. Insomnia Irritable bowel syndrome with constipation and diarrhea Hypersomnia Chronic depression Fibromyalgia CK 113, sedimentation rate of 9 on 09/18/2022. Hypothyroidism, unspecified TSH 5.03 with free T4 1.0 on 01/16/2022. TSH 4.21 with free T4 1.1 on 09/18/2022. He TSH 1.19 with free T4 1.0 on 02/04/2023. TSH 0.83, free T4 at 1.3 on 03/09/2024. <Staci Jose, MOWING MACHINE OPERATOR - Last Filed: 08/20/24 19:50> Surgical History Surgical History: Surgical History H/O: hysterectomy History of hand surgery History of tonsillectomy History of cholecystectomy History of appendectomy <Staci Jose, MOWING MACHINE OPERATOR - Last Filed: 08/20/24 19:50> Family History Family History: Family History Father Diabetes mellitus, Onset Age: 79 Cerebrovascular accident, Onset Age: 79 Alcoholism Cancer Hypertension Heart disease Sibling Family history of suicide, Onset Age: 42 Alcoholism Cancer Hypertension Depression Heart disease Cerebrovascular accident Thyroid disorder Mother Acute myocardial infarction, Onset Age: 79 Depression Thyroid disorder Hypertension Heart disease Grandparent Acute myocardial infarction, Onset Age: 80 <Staci Jose, MOWING MACHINE OPERATOR - Last Filed: 08/20/24 19:50> Social History Social History: Social History Years smoked: 45 Smoking status: Former smoker Tobacco type: cigarettes Smoking end date: 08/20/24 Additional smoking assessment comments: quit 2 year ago Alcohol intake: never Alcohol use details: 2 per month Substance use: never Substance use type: does not use Do You Feel Safe in your Home?: Yes Lack of Transportation: No Lack of Food: Never True Current Housing: I Have Housing Concerned About Future Housing: No Difficulty Paying Gas/Electric Bills: No Difficulty Paying for Meds: No Currently Unemployed: No Education: High School Diploma/GED Difficulty w/ Childcare or Family Care: No Living arrangements: with family Occupation/Education: occupation 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 HEAD: Normocephalic, atraumatic. NECK: Supple. No adenopathy, no masses. RESPIRATORY: Airway patent, respirations nonlabored. Clear to auscultation bilaterally, no rales, rhonchi, wheezing. CARDIOVASCULAR: Regular rate and rhythm without murmurs, rubs, or gallops. Peripheral pulses 2+ and equal bilaterally. ABDOMINAL: Soft, nontender, nondistended, no hepatosplenomegaly. Normoactive BS. MUSCULOSKELETAL: Moves all extremities. Strength/ROM intact without gross deformities. SKIN: Warm, dry, normal color. No rashes. NEURO: A&O X3. Speech clear. Cranial nerves II-XII intact. No ataxic movements. PSYCHIATRIC: Appropriate mood and affect. Normal interaction. RECTAL: Multiple external hemorrhoid-looking vesicles around rectum that are not thrombosed. One area of the vesicles is broadband technician in color than the other areas. Area is VERY tender to the touch. Per GI notes... large, hard tissue in anal area area that does not appear to be a typical hemorrhoid, thrombosed hemorrhoid, rectal prolapse, or cancerous mass. Mass is non bleeding with smooth edges, tender to the touch. No evidence of abscess or drainage noted, no erythema noted. Unsure if this is prolapsed internal hemorrhoids vs rectal prolapse vs other etiology. Digital rectal exam not performed due to pain and tenderness. Will send stat referral to Surgery for further evaluation, may need possible examination under anesthesia. <Staci Jose APRN - Last Filed: 08/20/24 19:50> Course PRINT CONTROLLER/PA Physician Supervision For this patient encounter, I reviewed the PRINT CONTROLLER or PA documentation, treatment plan, and medical decision making; and I had [id number] time with this patient. <Rick Hayes MD - Last Filed: 08/21/24 16:17> Vital Signs Vital signs: Vital Signs Temperature 97.8 F 08/20/24 16:21 Pulse Rate 72 08/20/24 16:21 Respiratory Rate 20 08/20/24 16:21 Blood Pressure 154/78 H 08/20/24 16:21 Pulse Oximetry 96 08/20/24 16:21 Temperature 98.3 F 08/21/24 13:39 Pulse Rate 77 08/21/24 13:39 Respiratory Rate 18 08/21/24 13:39 Blood Pressure 148/82 H 08/21/24 13:39 Pulse Oximetry 96 08/21/24 13:39 Oxygen Delivery Room Air 08/20/24 21:28 <Staci Jose APRN - Last Filed: 08/20/24 19:50> Vital Signs Temperature 97.8 F 08/20/24 16:21 Pulse Rate 72 08/20/24 16:21 Respiratory Rate 20 08/20/24 16:21 Blood Pressure 154/78 H 08/20/24 16:21 Pulse Oximetry 96 08/20/24 16:21 Temperature 98.3 F 08/21/24 13:39 Pulse Rate 77 08/21/24 13:39 Respiratory Rate 18 08/21/24 13:39 Blood Pressure 148/82 H 08/21/24 13:39 Pulse Oximetry 96 08/21/24 13:39 Oxygen Delivery Room Air 08/20/24 21:28 <Rick Hayes MD - Last Filed: 08/21/24 16:17> MDM - GI Bleed MDM Narrative Medical decision making narrative: Patient is a 63-year-old female who presents to the ER with complaints hemorrhoids. She reports she went to her GI doctor yesterday who was unable to do a rectal exam due to the swelling. Patient reports she was sent home with tramadol and numbing cream. She reports her pain has continued through today and she continues to notice drops blood on pad in her underwear. Patient describes the pain as ?throbbing. She reports her last bowel movement was this morning and it caused severe rectum pain. Pt denies any recent fevers, urinary symptoms, abdominal pain, lower extremity pain. Labs Ordered: CBC, CMP, INR, PTT, lipase Imaging Ordered: None necessary (per GI) Medications Ordered: Morphine 4 mg IV, Zofran 4 mg IV Results: Nonthrombosed external hemorrhoids Diagnosis: rectal pain Consults: Gastroenterology, who advised general surgery be consulted. General surgery, who advised patient could be admitted for pain control under medicine and he would consult on patient tomorrow. 1930-spoke with hospitalist who is in agreement with pt admission to the hospital. Patient Education/Shared MDM: Results shared with patient. She endorses improvement following medication administration. Patient was given the option to be discharged home with stronger pain medications or to be admitted to the hospital for pain control. She opted to be admitted to the hospital. <Staci Jose, MOWING MACHINE OPERATOR - Last Filed: 08/20/24 19:50> Differential Diagnosis Differential diagnosis: Likely hemorrhoids, anal fissure and other (rectal prolapse) <Staci Jose MOWING MACHINE OPERATOR - Last Filed: 08/20/24 19:50> Lab Data Attestation: I reviewed the patient's lab results. <Staci Jose MOWING MACHINE OPERATOR - Last Filed: 08/20/24 19:50> Result diagrams: 08/21/24 04:53 08/21/24 04:53 <Staci Jose MOWING MACHINE OPERATOR - Last Filed: 08/20/24 19:50> Labs: Lab Results 08/20/24 Range/Units 18:17 WBC 7.6 (4.5-10.0) K/mm3 RBC 4.49 (4.2-5.4) M/mm3 Hgb 13.3 (12.0-15.0) g/dL Hct 41.7 (37.0-47.0) % MCV 92.9 (80-100) fl MCH 29.6 (26-34) pg MCHC 31.9 L (32-36) g/dl RDW 14.4 (11.5-14.5) % Plt Count 359 (150-375) k/mm3 MPV 9.7 (7.4-10.4) fl Immature Gran % (Auto) 0.1 (0-0.5) % Neut % (Auto) 63.7 (45.5-73.1) % Lymph % (Auto) 20.5 (18.3-44.2) % Bledsoe % (Auto) 11.2 H (2.6-8.5) % Eos % (Auto) 3.6 (0-4.4) % Baso % (Auto) 0.9 (0.2-1.2) % Lymph # (Auto) 1.56 (0.9-3.2) K/mm3 Bledsoe # (Auto) 0.9 H (0.1-0.6) K/mm3 Eos # (Auto) 0.3 (0-0.3) K/mm3 Baso # (Auto) 0.1 (0.0-0.1) K/mm3 Abs Immat Gran (auto) 0.01 (0.00-0.031) K/mm3 Absolute Neuts (auto) 4.8 (1.3-6.7) K/mm3 Absolute Nucleated RBC 0.000 (0.0-0.012) K/mm3 Nucleated RBC % 0.0 (0.0-0.2) % PT 12.7 (11.1-14.7) Seconds INR 0.9 APTT 23.1 (22.3-36.8) Seconds Sodium 135 L (137-145) mmol/L Potassium 4.4 (3.4-5.0) mmol/L Chloride 101 (98-107) mmol/L Carbon Dioxide 26 (22-30) mmol/L Anion Gap 8 (4-12) mmol/L BUN 10 (7-17) mg/dL Creatinine 0.86 (0.7-1.0) mg/dL Estim Creat Clear Calc 83 ml/min Estimated GFR > 60 (59 - ) Glucose 96 (65-110) mg/dL Calcium 8.9 (8.4-10.2) mg/dL Total Bilirubin 0.5 (0.2-1.3) mg/dL AST 35 (14-36) U/L ALT 31 (6-35) U/L Alkaline Phosphatase 98 (38-126) U/L Total Protein 7.0 (6.3-8.2) g/dL Albumin 4.1 (3.5-5.1) g/dL Lipase 48 (23-300) U/L <Staci Jose, MOWING MACHINE OPERATOR - Last Filed: 08/20/24 19:50> Lab Results 08/20/24 Range/Units 18:17 WBC 7.6 (4.5-10.0) K/mm3 RBC 4.49 (4.2-5.4) M/mm3 Hgb 13.3 (12.0-15.0) g/dL Hct 41.7 (37.0-47.0) % MCV 92.9 (80-100) fl MCH 29.6 (26-34) pg MCHC 31.9 L (32-36) g/dl RDW 14.4 (11.5-14.5) % Plt Count 359 (150-375) k/mm3 MPV 9.7 (7.4-10.4) fl Immature Gran % (Auto) 0.1 (0-0.5) % Neut % (Auto) 63.7 (45.5-73.1) % Lymph % (Auto) 20.5 (18.3-44.2) % Bledsoe % (Auto) 11.2 H (2.6-8.5) % Eos % (Auto) 3.6 (0-4.4) % Baso % (Auto) 0.9 (0.2-1.2) % Lymph # (Auto) 1.56 (0.9-3.2) K/mm3 Bledsoe # (Auto) 0.9 H (0.1-0.6) K/mm3 Eos # (Auto) 0.3 (0-0.3) K/mm3 Baso # (Auto) 0.1 (0.0-0.1) K/mm3 Abs Immat Gran (auto) 0.01 (0.00-0.031) K/mm3 Absolute Neuts (auto) 4.8 (1.3-6.7) K/mm3 Absolute Nucleated RBC 0.000 (0.0-0.012) K/mm3 Nucleated RBC % 0.0 (0.0-0.2) % PT 12.7 (11.1-14.7) Seconds INR 0.9 APTT 23.1 (22.3-36.8) Seconds Sodium 135 L (137-145) mmol/L Potassium 4.4 (3.4-5.0) mmol/L Chloride 101 (98-107) mmol/L Carbon Dioxide 26 (22-30) mmol/L Anion Gap 8 (4-12) mmol/L BUN 10 (7-17) mg/dL Creatinine 0.86 (0.7-1.0) mg/dL Estim Creat Clear Calc 83 ml/min Estimated GFR > 60 (59 - ) Glucose 96 (65-110) mg/dL Calcium 8.9 (8.4-10.2) mg/dL Total Bilirubin 0.5 (0.2-1.3) mg/dL AST 35 (14-36) U/L ALT 31 (6-35) U/L Alkaline Phosphatase 98 (38-126) U/L Total Protein 7.0 (6.3-8.2) g/dL Albumin 4.1 (3.5-5.1) g/dL Lipase 48 (23-300) U/L <Rick Hayes MD - Last Filed: 08/21/24 16:17> Discharge Plan Discharge Clinical Impression: Hemorrhoids, Inadequate pain control <Staci Jose APRN - Last Filed: 08/20/24 19:50> Patient Disposition: Still a Patient <Staci Jose APRN - Last Filed: 08/20/24 19:50> Condition: Stable <Staci Jose APRN - Last Filed: 08/20/24 19:50>
[2024-08-20 18:00] VITALS: BP 140/90; PULSE 82; RESP 18; O2SAT 96
[2024-08-20] MEDS: MORPHINE SULFATE (*CRX) 4 MG/ML INJ IV PUSH (18:18)
[2024-08-20] MEDS: ONDANSETRON INJ 4 MG/2 ML VIAL (18:29)
[2024-08-20 18:31] LABS: Basophils Absolute Auto 0.1 K/mm3 (0.0-0.1); Basophils Percent Auto 0.9 % (0.2-1.2); Eosinophils Absolute Auto 0.3 K/mm3 (0-0.3); Eosinophils Percent Auto 3.6 % (0-4.4); Hematocrit 41.7 % (37.0-47.0); Hemoglobin 13.3 g/dL (12.0-15.0); Immature Granulocyte Absolute 0.01 K/mm3 (0.00-0.031); Immature Granulocyte Percent A 0.1 % (0-0.5); Lymphocytes Absolute Auto 1.56 K/mm3 (0.9-3.2); Lymphocytes Percent Auto 20.5 % (18.3-44.2); Mean Corpuscular HGB Conc 31.9 g/dl (32-36); Mean Corpuscular Hemoglobin 29.6 pg (26-34); Mean Corpuscular Volume 92.9 fl (80-100); Mean Platelet Volume 9.7 fl (7.4-10.4); Monocytes Absolute Auto 0.9 K/mm3 (0.1-0.6); Monocytes Percent Auto 11.2 % (2.6-8.5); Neutrophils Absolute Auto 4.8 K/mm3 (1.3-6.7); Neutrophils Percent Auto 63.7 % (45.5-73.1); Platelet Count Result 359 k/mm3 (150-375); Red Blood Count 4.49 M/mm3 (4.2-5.4); Red Cell Distribution Width 14.4 % (11.5-14.5); White Blood Count 7.6 K/mm3 (4.5-10.0)
[2024-08-20 18:46] LABS: INR 0.9; Prothrombin Time 12.7 Seconds (11.1-14.7)
[2024-08-20 18:47] LABS: Partial Thromboplastin Time 23.1 Seconds (22.3-36.8)
[2024-08-20 19:06] LABS: Alanine Aminotransferase 31 U/L (6-35); Albumin Level 4.1 g/dL (3.5-5.1); Alkaline Phosphatase 98 U/L (38-126); Anion Gap 8 mmol/L (4-12); Aspartate Amino Transferase 35 U/L (14-36); Bilirubin,Total 0.5 mg/dL (0.2-1.3); Blood Urea Nitrogen 10 mg/dL (7-17); Calcium 8.9 mg/dL (8.4-10.2); Carbon Dioxide 26 mmol/L (22-30); Chloride 101 mmol/L (98-107); Estimated CRCL calculation 83 ml/min; Estimated Glomerular Filt Rate > 60; Glucose 96 mg/dL (65-110); Lipase 48 U/L (23-300); Potassium 4.4 mmol/L (3.4-5.0); Sodium 135 mmol/L (137-145)
[2024-08-20 20:39] VITALS: BP 142/77; PULSE 80; RESP 16; O2SAT 97
[2024-08-20 21:00] VITALS: BMI 55.8
[2024-08-20 21:08] VITALS: BP 146/78; PULSE 78; RESP 20; TEMP 36.5; O2SAT 95
--- NOTE | 2024-08-20 21:16 | ADMGEN ---
This patient, Mahi Mcgovern, was admitted to Medical Room 255-. Patient/family oriented to hospital policies and general routines including ID bracelet, bed and alarms, visiting hours, pain management, procedures, bathroom and other care routines, personal items, smoking policy, room service/diet, and visiting hours. Information on how to activate the Rapid Response Team has been discussed. Patient/Family are encouraged to report perceived risks to care and to ask questions if they do not understand what they are told or what they should do.
--- NOTE | 2024-08-20 21:33 | P.HP_ITS ---
H&P: HPI History of Present Illness Date/Time: 08/20/24 21:33 Chief Complaint: This is a pleasant 63-year-old female presents to [facility] with complaints of severe rectal pain. She has a history of severe hemorrhoids which is usually alleviated by preparation H and hemorrhoid wipes. About 3 days prior to admission she had a flare up but it did not resolve. She has also had blood in her underwear each morning. She has had extremely painful defecation although her stools are normal. Recent colonoscopy in April [address] Rea dillon demonstrated ascending colon polyp tubulovillous adenoma with no evidence of high-grade dysplasia. Internal hemorrhoid. She presented to her GI office she is found to have a large hard tissue mass in the anal area. Rectal exam unable to be performed. Was advised to have a urgent surgery referral. They referred her to the [facility] for pain control. ER evaluation revealed unremarkable vitals and laboratory workup she was given morphine and Zofran. General surgery requested hospitalist to admit. Review of Systems Review of Systems: All systems reviewed & are unremarkable except as noted in HPI and below (HPI) [facility] Past Medical History Medical History Rectal bleeding Rectal pain Rectal mass Neck pain Benign essential tremor Weakness of left upper extremity (~05/2023) EKG on 08/05/2023 with sinus rhythm with nonspecific ST T wave changes unchanged from previous EKG 11/08/2022. Migraine headache without aura (05/31/23) MRI of the brain on 12/24/2023 unremarkable. Acute non-recurrent maxillary sinusitis Pharyngitis Acute bronchitis Abnormal fasting glucose (01/16/22) fasting glucose 106 with hemoglobin A1c 5.7 on 01/16/2022. fasting glucose 93 with hemoglobin A1c 5.4 on 09/18/2022. Glucose 88 with hemoglobin A1c 5.7 on 02/04/2023. glucose 102 with hemoglobin A1c 4.8 on 07/29/2023. glucose 93 with hemoglobin A1c 5.7 and GFR 78 on 03/09/2024. Nasal folliculitis Arthritis History of tobacco abuse Dizziness Chest pain Exercise stress test on 02/08/2022 was negative for ischemia. Transesophageal echocardiogram on 02/08/2022 with LVH and grade 1 diastolic dysfunction. History of COVID-19 Dyspnea Normal pulmonary function test on 02/02/2022. Cough Morbid obesity with BMI of 50.0-59.9, adult Screening for diabetes mellitus Muscle cramps Magnesium 2.0 on 03/09/2024. Urinary frequency Fatigue TSH 0.83, free T4 1.3, hemoglobin 15.5 on 03/09/2024. Anemia Left shoulder pain Right wrist pain COVID-19 long hauler manifesting chronic dyspnea (~05/2021) Aspiration pneumonia (07/15/21) Syncope and collapse (07/15/21) EEG on 08/07/2021 was normal. No seizure activity. MRI of the brain on 08/08/2021 was normal. COVID-19 positive rapid test 05/12/2021 Hyperlipidemia total cholesterol 208, HDL 66, triglycerides 134, LDL 117 on 01/16/2022. Cholesterol 223, triglycerides 95, HDL 80, LDL 123 with ratio 2.8 on 02/04/2023. Cholesterol 210, triglycerides 162, HDL 63, LDL 119 with ratio 3.3 on 03/09/2024. Abnormal bowel habits Lower abdominal pain Upper abdominal pain Tobacco use disorder, continuous Patient quit smoking 2021. Peptic ulcer disease History of peptic ulcer disease with normal EGD on 03/15/2021 with 4 cm hiatal hernia. Biopsies obtained Polyp of colon (03/15/21) 12 mm polyp of the cecum on colonoscopy with Dr. Castillo 03/15/2021 with recheck in 3 years. External hemorrhoids noted. 7 mm flat Tubulovillous adenoma polyp ascending colon on colonoscopy 04/20/2024 with recheck in 7 years. Breast cancer screening by mammogram Normal mammogram 10/03/2023. Dysphagia modified barium swallow was normal 08/03/2021 Abdominal pain Iron deficiency anemia, unspecified Labs on 02/11/2021 with iron 34, 7% saturation, and ferritin 4 with hemoglobin 11.1. Iron low at 34 with 7% saturation and ferritin 6 on 01/16/2022. iron 245 with 48% saturation and ferritin 9 on 09/18/2022. Iron 57 with 13% saturation and ferritin 15 with hemoglobin 14.6 on 02/04/2023. Iron 49 with 12% saturation and ferritin 14 with hemoglobin 15.1 on 07/29/2023. Iron 84 with 23% saturation and ferritin 24 with hemoglobin 15.5 on 03/09/2024. Insomnia Irritable bowel syndrome with constipation and diarrhea Hypersomnia Chronic depression Fibromyalgia CK 113, sedimentation rate of 9 on 09/18/2022. Hypothyroidism, unspecified TSH 5.03 with free T4 1.0 on 01/16/2022. TSH 4.21 with free T4 1.1 on 09/18/2022. He TSH 1.19 with free T4 1.0 on 02/04/2023. TSH 0.83, free T4 at 1.3 on 03/09/2024. Surgical History Surgical History H/O: hysterectomy History of hand surgery History of tonsillectomy History of cholecystectomy History of appendectomy Family History Family History Father Diabetes mellitus, Onset Age: 79 Cerebrovascular accident, Onset Age: 79 Alcoholism Cancer Hypertension Heart disease Sibling Family history of suicide, Onset Age: 42 Alcoholism Cancer Hypertension Depression Heart disease Cerebrovascular accident Thyroid disorder Mother Acute myocardial infarction, Onset Age: 79 Depression Thyroid disorder Hypertension Heart disease Grandparent Acute myocardial infarction, Onset Age: 80 Social History Social History Years smoked: 45 Smoking status: Former smoker Tobacco type: cigarettes Smoking end date: 08/20/24 Additional smoking assessment comments: quit 2 year ago Alcohol intake: never Alcohol use details: 2 per month Substance use: never Substance use type: does not use Do You Feel Safe in your Home?: Yes Lack of Transportation: No Lack of Food: Never True Current Housing: I Have Housing Concerned About Future Housing: No Difficulty Paying Gas/Electric Bills: No Difficulty Paying for Meds: No Currently Unemployed: No Education: High School Diploma/GED Difficulty w/ Childcare or Family Care: No Living arrangements: with family Occupation/Education: occupation 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 Spiritual care concerns: No Meds Home Medications and Allergies Home Medications ?Medication ?Instructions ?Recorded ?Confirmed ?Type cholecalciferol (vitamin D3) 25 3,000 unit PO DAILY 06/16/19 08/20/24 History mcg (1,000 unit) capsule omega-3 fatty acids 1,000 mg 2,000 mg PO DAILY 02/28/21 08/20/24 History capsule (Fish Oil Concentrate) ferrous sulfate 325 mg (65 mg 325 mg PO DAILY 07/19/22 08/20/24 History iron) tablet,delayed release magnesium oxide 500 mg capsule 500 mg PO BID PRN constipation 07/19/22 08/20/24 History omeprazole 20 mg tablet,delayed 20 mg PO BID 02/04/23 08/20/24 History release syringe with needle 3 mL 23 x 1 #20 ea 04/19/23 08/20/24 Rx (BD Eclipse Luer-Eleazar) ubrogepant 100 mg tablet (Ubrelvy) 100 mg PO ONCE PRN migraine 06/03/23 08/20/24 History cyclobenzaprine 10 mg tablet 10 mg PO TID PRN muscle spasm #90 09/03/23 08/20/24 Rx tabs cyanocobalamin (vitamin B-12) 1,000 mcg subcut DIRECTED 04/06/24 08/20/24 History 1,000 mcg/mL injection kit fluticasone 500 mcg-salmeterol 50 See Rx Instructions .Route 04/06/24 08/20/24 History mcg/dose blistr powdr for .COMPLEX PRN Shortness Of Breath inhalation (Advair Diskus) Or Wheezing levothyroxine 100 mcg tablet 100 mcg PO . q.a.m. #90 tabs 04/07/24 08/20/24 Rx duloxetine 60 mg capsule,delayed 60 mg PO DAILY #90 caps 06/10/24 08/20/24 Rx release zolpidem 10 mg tablet (Ambien) 10 mg PO QHS PRN insomnia #30 tabs 08/11/24 08/20/24 Rx tramadol 50 mg tablet 50 mg PO Q6H PRN pain #15 tabs 08/19/24 08/20/24 Rx Allergies Allergy/AdvReac Type Severity Reaction Status Date / Time No Known Allergies Allergy Verified 08/20/24 18:20 Vital Signs Vital Signs - 24 hr 08/20/24 16:21 08/20/24 18:00 08/20/24 20:39 Temperature 97.8 F Pulse Rate 72 82 80 Respiratory Rate 20 18 16 Blood Pressure 154/78 H 140/90 142/77 H Pulse Oximetry 96 96 97 Oxygen Delivery 08/20/24 21:08 08/20/24 21:28 Temperature 97.7 F Pulse Rate 78 Respiratory Rate 20 Blood Pressure 146/78 H Pulse Oximetry 95 Oxygen Delivery Room Air Exam Narrative: Tender nonbleeding nonthrombosed external hemorrhoid Const: General: comfortable and no acute distress HENMT: Mouth: Yes moist mucous membranes Eyes: Pupils: Equal, round and reactive pupils present Neck: Neck: supple Resp: Effort & Inspection: normal respiratory effort Auscultation: clear to auscultation bilaterally Cardio: Rate: regular rate Rhythm: regular rhythm GI: GI Palp: Yes Soft to palpation and No Tenderness to palpation present (GI) Neuro: Motor exam (neuro): 5/5 motor strength present throughout Extrem: General: no edema H&P: Results Labs Labs: Short CBC 08/20/24 Range/Units 18:17 WBC 7.6 (4.5-10.0) K/mm3 Hgb 13.3 (12.0-15.0) g/dL Hct 41.7 (37.0-47.0) % Plt Count 359 (150-375) k/mm3 BMP 08/20/24 18:17 Sodium 135 L Potassium 4.4 Chloride 101 Carbon Dioxide 26 BUN 10 Creatinine 0.86 Glucose 96 Calcium 8.9 Liver Function 08/20/24 Range/Units 18:17 Total Bilirubin 0.5 (0.2-1.3) mg/dL AST 35 (14-36) U/L ALT 31 (6-35) U/L Alkaline Phosphatase 98 (38-126) U/L Albumin 4.1 (3.5-5.1) g/dL Assessment and Plan Assessment and plan (1) Hemorrhoids: Code(s): K64.9 - Unspecified hemorrhoids Status: Acute (2) Rectal bleeding: Code(s): K62.5 - Hemorrhage of anus and rectum Status: Acute Plan This is a pleasant 63-year-old female presents to [facility] with complaints of severe rectal pain. She has a history of severe hemorrhoids which is usually alleviated by preparation H and hemorrhoid wipes. About 3 days prior to admission she had a flare up but it did not resolve. She has also had blood in her underwear each morning. She has had extremely painful defecation although her stools are normal. Recent colonoscopy in April [address] Rea dillon demonstrated ascending colon polyp tubulovillous adenoma with no ev idence of high-grade dysplasia. Internal hemorrhoid. She presented to her GI office she is found to have a large hard tissue mass in the anal area. Rectal exam unable to be performed. Was advised to have a urgent surgery referral. They referred her to the [facility] for pain control. ER evaluation revealed unremarkable vitals and laboratory workup she was given morphine and Zofran. General surgery requested hospitalist to admit. ----- Pain control. Awaiting surgery SCDs. Full code. Morphine p.r.n.. Hospitalist MIPS Advance Care Plan I have confirmed that the patient's Advanced Care Plan is present, code status is documented, or surrogate decision maker is listed in patient medical record.: Yes Medication Reconciliation I have utilized all available resources to obtain, update and review the patients current medications (includes all prescriptions, OTC, herbals, cannabis, and nutritional supplements).: Yes
[2024-08-20] MEDS: PANTOPRAZOLE 40 MG TABLET PO (21:50)
[2024-08-20] MEDS: DOCUSATE SODIUM 100 MG CAPSULE PO (21:50)
[2024-08-20] MEDS: HYDROcodone/acetaminophen (*CRX) 10-325 MG TABLET 1 TAB PO (21:50)
[2024-08-20] MEDS: ONDANSETRON INJ 4 MG/2 ML VIAL IV PUSH (22:19)
[2024-08-21 04:06] VITALS: BP 127/71; PULSE 73; RESP 20; TEMP 36.4; O2SAT 93
[2024-08-21 05:25] LABS: Hematocrit 40.1 % (37.0-47.0); Hemoglobin 12.9 g/dL (12.0-15.0); Mean Corpuscular HGB Conc 32.2 g/dl (32-36); Mean Corpuscular Hemoglobin 29.9 pg (26-34); Mean Corpuscular Volume 92.8 fl (80-100); Mean Platelet Volume 9.7 fl (7.4-10.4); Platelet Count Result 342 k/mm3 (150-375); Red Blood Count 4.32 M/mm3 (4.2-5.4); Red Cell Distribution Width 14.3 % (11.5-14.5); White Blood Count 4.4 K/mm3 (4.5-10.0)
[2024-08-21 05:35] LABS: Anion Gap 5 mmol/L (4-12); Blood Urea Nitrogen 9 mg/dL (7-17); Calcium 8.5 mg/dL (8.4-10.2); Carbon Dioxide 29 mmol/L (22-30); Chloride 101 mmol/L (98-107); Estimated CRCL calculation 87 ml/min; Estimated Glomerular Filt Rate > 60; Glucose 105 mg/dL (65-110); Magnesium 1.9 mg/dL (1.6-2.3); Potassium 4.3 mmol/L (3.4-5.0); Sodium 135 mmol/L (137-145)
[2024-08-21 05:36] LABS: Prothrombin Time 13.3 Seconds (11.1-14.7)
[2024-08-21] MEDS: LEVOTHYROXINE SODIUM 100 MCG TABLET PO (05:49)
[2024-08-21] MEDS: HYDROcodone/acetaminophen (*CRX) 10-325 MG TABLET 1 TAB PO ×2 (05:52→10:46)
[2024-08-21] MEDS: ONDANSETRON INJ 4 MG/2 ML VIAL IV PUSH ×3 (05:52→16:23)
--- NOTE | 2024-08-21 06:57 | PM.IMPN ---
Progress Note: A&P Assessment and Plan (1) Hemorrhoids: Code(s): K64.9 - Unspecified hemorrhoids Status: Acute Assessment and Plan: History of severe hemorrhoids that typically resolve with prep H. Followed by GI, last seen 08/19. At this appointment patient noted to have a nonbleeding mass with smooth edges that was tender to the touch. Concerning for prolapsed internal hemorrhoids vs recta prolapse vs other. - Colonoscopy 04/20/24: Ascending colon polyp (s/p polypectomy which showed tubulovillous adenoma with no evidence of high grade dysplasia) and diverticulosis - GI recommending RectiCare (lidocaine) cream, tramadol, and surgery referral - Surgery consulted, appreciate recommendations (2) Hypothyroidism, unspecified: Qualifiers: Hypothyroidism type: unspecified Qualified Code(s): E03.9 - Hypothyroidism, unspecified Code(s): E03.9 - Hypothyroidism, unspecified Status: Acute Assessment and Plan: Continue Synthroid 100 mcg daily Subjective Date/time seen: 08/21/24 06:57 Interval history: 63 year old female with past medical history of IBS, hemorrhoids, HLD, hypothyroidism, and iron deficiency anemia presents to the hospital from her GI appointment for severe rectal pain secondary to hemorrhoids. Patient is pleasant lying comfortably in bed with at bedside. She continues to endorse rectal discomfort but notes that pain has much improved on the current regimen. She continues to have slight bleeding per rectum. No bowel movement since yesterday morning. Notes that bleeding increases during bowel movements then will calm back down. She has no other complaints denying chest pain, shortness of breath, palpitations, nausea/vomiting and abdominal pain. Review of Systems Review of Systems: All systems reviewed & are unremarkable except as noted in HPI and below Exam Narrative: AF HR 77 RR 18 Spo2 96 BP 148/82 General: female in no acute respiratory distress who is nontoxic appearing, lying semi recumbent in bed. HEENT: Normocephalic. Atraumatic. Extraocular movement intact. Sclera clear and anicteric. No facial asymmetry. Chest: Lungs are clear to auscultation bilaterally. No wheezes or crackles. CV: Heart was regular rate and rhythm. Abd: Abdomen was soft. Nontender. Nondistended. Positive bowel sounds. GI: Multiple external hemorrhoids that are tender to soft touch. Ext: No clubbing, cyanosis, or edema. DP pulses bilaterally. Neuro: Patient is alert and oriented x4. Speech is clear. Objective Data Vital Signs Vital Signs: Vital Signs - 24 hr 08/20/24 16:21 08/20/24 18:00 08/20/24 20:39 Temperature 97.8 F Pulse Rate 72 82 80 Respiratory Rate 20 18 16 Blood Pressure 154/78 H 140/90 142/77 H Pulse Oximetry 96 96 97 Oxygen Delivery 08/20/24 21:08 08/20/24 21:28 08/21/24 04:06 Temperature 97.7 F 97.5 F L Pulse Rate 78 73 Respiratory Rate 20 20 Blood Pressure 146/78 H 127/71 Pulse Oximetry 95 93 Oxygen Delivery Room Air Intake/Output Intake/Output: Intake & Output 08/18/24 08/19/24 08/20/24 08/21/24 23:59 23:59 23:59 23:59 Intake Total 390 Balance 390 Meds/Results Medications: Active Medications Generic Name Dose Route Start Last Admin Trade Name Freq PRN Reason Stop Dose Admin Acetaminophen 500 mg 08/20/24 21:32 Acetaminophen 500 Mg Tablet PO Q6H PRN Mild Pain (1-3) or Fever Hydrocodone Bitart/Acetaminophen 1 tab 08/20/24 21:32 08/21/24 05:52 Hydrocodone/Acetaminophen (*Crx) 10-325 Mg Tablet PO 1 tab Q4H PRN Administration Pain Rated 7-10 Docusate Sodium 100 mg 08/20/24 21:00 08/20/24 21:50 Docusate Sodium 100 Mg Capsule PO 100 mg Q12HR MICKEY Administration Duloxetine HCl 60 mg 08/21/24 09:00 Duloxetine Hcl 60 Mg Capsule.Dr PO DAILY MICKEY Levothyroxine Sodium 100 mcg 08/21/24 06:30 08/21/24 05:49 Levothyroxine Sodium 100 Mcg Tablet PO 100 mcg DAILY@0630 MICKEY Administration Morphine Sulfate 4 mg 08/20/24 19:47 Morphine Sulfate (*Crx) 4 Mg/Ml Inj IV PUSH Q2H PRN Pain Rated 7-10 Ondansetron HCl 4 mg 08/20/24 19:47 08/21/24 05:52 Ondansetron Inj 4 Mg/2 Ml Vial IV PUSH 4 mg Q4H PRN Administration Nausea Pantoprazole Sodium 40 mg 08/20/24 21:40 08/20/24 21:50 Pantoprazole 40 Mg Tablet PO 40 mg BID MICKEY Administration Fluticasone/Salmeterol 2 puff 08/21/24 09:00 Fluticasone/Salmeterol 230-21 Mcg Inhaler 1 Puff INHALATION DAILY [facility] Zolpidem Tartrate 10 mg 08/20/24 21:30 Zolpidem Tartrate (*Crx) 5 Mg Tablet PO QHS PRN insomnia Labs Labs: Laboratory Results - last 24 hr 08/20/24 08/21/24 18:17 04:53 WBC 7.6 4.4 L RBC 4.49 4.32 Hgb 13.3 12.9 Hct 41.7 40.1 MCV 92.9 92.8 MCH 29.6 29.9 MCHC 31.9 L 32.2 RDW 14.4 14.3 Plt Count 359 342 MPV 9.7 9.7 Immature Gran % (Auto) 0.1 Neut % (Auto) 63.7 Lymph % (Auto) 20.5 Brewster % (Auto) 11.2 H Eos % (Auto) 3.6 Baso % (Auto) 0.9 Lymph # (Auto) 1.56 Brewster # (Auto) 0.9 H Eos # (Auto) 0.3 Baso # (Auto) 0.1 Abs Immat Gran (auto) 0.01 Absolute Neuts (auto) 4.8 Absolute Nucleated RBC 0.000 Nucleated RBC % 0.0 PT 12.7 13.3 INR 0.9 1.0 APTT 23.1 Sodium 135 L 135 L Potassium 4.4 4.3 Chloride 101 101 Carbon Dioxide 26 29 Anion Gap 8 5 BUN 10 9 Creatinine 0.86 0.86 Estim Creat Clear Calc 83 87 Estimated GFR > 60 > 60 Glucose 96 105 Calcium 8.9 8.5 Magnesium 1.9 Total Bilirubin 0.5 AST 35 ALT 31 Alkaline Phosphatase 98 Total Protein 7.0 Albumin 4.1 Lipase 48
[2024-08-21] MEDS: FLUTICASONE/SALMETEROL 230-21 MCG INHALER 1 PUFF 2 PUFF INHALATION (08:29)
[2024-08-21] MEDS: PANTOPRAZOLE 40 MG TABLET PO ×2 (10:47→16:20)
[2024-08-21] MEDS: DOCUSATE SODIUM 100 MG CAPSULE PO ×2 (10:47→21:01)
[2024-08-21] MEDS: DULoxetine HCL 60 MG CAPSULE.DR PO (10:47)
[2024-08-21 13:39] VITALS: BP 148/82; PULSE 77; RESP 18; TEMP 36.8; O2SAT 96
--- NOTE | 2024-08-21 14:57 | WPDCN ---
Assessment and Plan Assessment and plan (1) Hemorrhoids: Code(s): K64.9 - Unspecified hemorrhoids Status: Acute Assessment and Plan: Patient admitted to the hospital intractable pain from her very symptomatic combined internal-external hemorrhoids. She has a large right posterior lateral hemorrhoid which is nonthrombosed and not necrotic at this time. However it is very swollen and friable. For now I have recommended non operative management try get the hemorrhoid to shrink and then set her up for a formal excisional hemorrhoidectomy as an outpatient. He is already on some stool softeners or add MiraLax for laxative. If she needs something stronger can use milk of magnesia. We will go ahead and give her some Anusol 2.5% hydrocortisone cream to be applied rectally b.i.d.. Lidocaine solution 4% to apply to the hemorrhoid for pain as needed. Will increase her oral pain medications to Percocet from the [facility]. Presently her pain is 3-5/10 on her oral pain medications she has no need for IV morphine. We will go ahead give her a diet and keep her on a low-fiber diet. Will follow. [facility] Data of Consult Date/Time: 08/21/24 14:57 Requesting Physician: Peg Watts PA-C Primary Care Provider: Farhan Irene MD Consult Narrative Reason for consult: Intractable pain secondary to combined internal-external hemorrhoids Narrative: Mahi Mcgovern is a 63 year old female admitted to the hospital through the emergency room last evening for intractable pain secondary to combined internal and external hemorrhoids. She was seen by GI as an outpatient and told she had hemorrhoids and that she should make an appointment to see a general surgeon. She did make an appointment to see Dr. Godoy in our office next week but due to the pain she came to the emergency room for treatment. She has been admitted to the hospital and have her pain has improved on a combination of IV morphine which has then been transitioned over to oral narcotics. She states she has had a long history of having hemorrhoids but has not had any prior hemorrhoid surgery. More recently she has had more symptoms of pain and some bleeding with bowel movements. Her last colonoscopy last year only a tubulovillous adenoma transverse colon which was completely removed. Review of Systems Review of Systems: The remainder of the review of systems to include constitutional, HEENT, cardiovascular, respiratory, GI, , integumentary, musculoskeletal, endocrine, immunologic, hematologic, psychiatric, and neurologic are all negative except for which is mentioned above in the HPI. [facility] Past Medical History Medical History Rectal bleeding Rectal pain Rectal mass Neck pain Benign essential tremor Weakness of left upper extremity (~05/2023) EKG on 08/05/2023 with sinus rhythm with nonspecific ST T wave changes unchanged from previous EKG 11/08/2022. Migraine headache without aura (05/31/23) MRI of the brain on 12/24/2023 unremarkable. Acute non-recurrent maxillary sinusitis Pharyngitis Acute bronchitis Abnormal fasting glucose (01/16/22) fasting glucose 106 with hemoglobin A1c 5.7 on 01/16/2022. fasting glucose 93 with hemoglobin A1c 5.4 on 09/18/2022. Glucose 88 with hemoglobin A1c 5.7 on 02/04/2023. glucose 102 with hemoglobin A1c 4.8 on 07/29/2023. glucose 93 with hemoglobin A1c 5.7 and GFR 78 on 03/09/2024. Nasal folliculitis Arthritis History of tobacco abuse Dizziness Chest pain Exercise stress test on 02/08/2022 was negative for ischemia. Transesophageal echocardiogram on 02/08/2022 with LVH and grade 1 diastolic dysfunction. History of COVID-19 Dyspnea Normal pulmonary function test on 02/02/2022. Cough Morbid obesity with BMI of 50.0-59.9, adult Screening for diabetes mellitus Muscle cramps Magnesium 2.0 on 03/09/2024. Urinary frequency Fatigue TSH 0.83, free T4 1.3, hemoglobin 15.5 on 03/09/2024. Anemia Left shoulder pain Right wrist pain COVID-19 long hauler manifesting chronic dyspnea (~05/2021) Aspiration pneumonia (07/15/21) Syncope and collapse (07/15/21) EEG on 08/07/2021 was normal. No seizure activity. MRI of the brain on 08/08/2021 was normal. COVID-19 positive rapid test 05/12/2021 Hyperlipidemia total cholesterol 208, HDL 66, triglycerides 134, LDL 117 on 01/16/2022. Cholesterol 223, triglycerides 95, HDL 80, LDL 123 with ratio 2.8 on 02/04/2023. Cholesterol 210, triglycerides 162, HDL 63, LDL 119 with ratio 3.3 on 03/09/2024. Abnormal bowel habits Lower abdominal pain Upper abdominal pain Tobacco use disorder, continuous Patient quit smoking 2021. Peptic ulcer disease History of peptic ulcer disease with normal EGD on 03/15/2021 with 4 cm hiatal hernia. Biopsies obtained Polyp of colon (03/15/21) 12 mm polyp of the cecum on colonoscopy with Dr. Castillo 03/15/2021 with recheck in 3 years. External hemorrhoids noted. 7 mm flat Tubulovillous adenoma polyp ascending colon on colonoscopy 04/20/2024 with recheck in 7 years. Breast cancer screening by mammogram Normal mammogram 10/03/2023. Dysphagia modified barium swallow was normal 08/03/2021 Abdominal pain Iron deficiency anemia, unspecified Labs on 02/11/2021 with iron 34, 7% saturation, and ferritin 4 with hemoglobin 11.1. Iron low at 34 with 7% saturation and ferritin 6 on 01/16/2022. iron 245 with 48% saturation and ferritin 9 on 09/18/2022. Iron 57 with 13% saturation and ferritin 15 with hemoglobin 14.6 on 02/04/2023. Iron 49 with 12% saturation and ferritin 14 with hemoglobin 15.1 on 07/29/2023. Iron 84 with 23% saturation and ferritin 24 with hemoglobin 15.5 on 03/09/2024. Insomnia Irritable bowel syndrome with constipation and diarrhea Hypersomnia Chronic depression Fibromyalgia CK 113, sedimentation rate of 9 on 09/18/2022. Hypothyroidism, unspecified TSH 5.03 with free T4 1.0 on 01/16/2022. TSH 4.21 with free T4 1.1 on 09/18/2022. He TSH 1.19 with free T4 1.0 on 02/04/2023. TSH 0.83, free T4 at 1.3 on 03/09/2024. Surgical History Surgical History H/O: hysterectomy History of hand surgery History of tonsillectomy History of cholecystectomy History of appendectomy Family History Family History Father Diabetes mellitus, Onset Age: 79 Cerebrovascular accident, Onset Age: 79 Alcoholism Cancer Hypertension Heart disease Sibling Family history of suicide, Onset Age: 42 Alcoholism Cancer Hypertension Depression Heart disease Cerebrovascular accident Thyroid disorder Mother Acute myocardial infarction, Onset Age: 79 Depression Thyroid disorder Hypertension Heart disease Grandparent Acute myocardial infarction, Onset Age: 80 Social History Social History Years smoked: 45 Smoking status: Former smoker Tobacco type: cigarettes Smoking end date: 08/20/24 Additional smoking assessment comments: quit 2 year ago Alcohol intake: never Alcohol use details: 2 per month Substance use: never Substance use type: does not use Do You Feel Safe in your Home?: Yes Lack of Transportation: No Lack of Food: Never True Current Housing: I Have Housing Concerned About Future Housing: No Difficulty Paying Gas/Electric Bills: No Difficulty Paying for Meds: No Currently Unemployed: No Education: High School Diploma/GED Difficulty w/ Childcare or Family Care: No Living arrangements: with family Occupation/Education: occupation 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 Spiritual care concerns: No Meds Home Medications and Allergies Home Medications ?Medication ?Instructions ?Recorded ?Confirmed ?Type cholecalciferol (vitamin D3) 25 3,000 unit PO DAILY 06/16/19 08/20/24 History mcg (1,000 unit) capsule omega-3 fatty acids 1,000 mg 2,000 mg PO DAILY 02/28/21 08/20/24 History capsule (Fish Oil Concentrate) ferrous sulfate 325 mg (65 mg 325 mg PO DAILY 07/19/22 08/20/24 History iron) tablet,delayed release magnesium oxide 500 mg capsule 500 mg PO BID PRN constipation 07/19/22 08/20/24 History omeprazole 20 mg tablet,delayed 20 mg PO BID 02/04/23 08/20/24 History release syringe with needle 3 mL 23 x 1 #20 ea 04/19/23 08/20/24 Rx (BD Eclipse Luer-Eleazar) ubrogepant 100 mg tablet (Ubrelvy) 100 mg PO ONCE PRN migraine 06/03/23 08/20/24 History cyclobenzaprine 10 mg tablet 10 mg PO TID PRN muscle spasm #90 09/03/23 08/20/24 Rx tabs cyanocobalamin (vitamin B-12) 1,000 mcg subcut DIRECTED 04/06/24 08/20/24 History 1,000 mcg/mL injection kit fluticasone 500 mcg-salmeterol 50 See Rx Instructions .Route 04/06/24 08/20/24 History mcg/dose blistr powdr for .COMPLEX PRN Shortness Of Breath inhalation (Advair Diskus) Or Wheezing levothyroxine 100 mcg tablet 100 mcg PO . q.a.m. #90 tabs 04/07/24 08/20/24 Rx duloxetine 60 mg capsule,delayed 60 mg PO DAILY #90 caps 06/10/24 08/20/24 Rx release zolpidem 10 mg tablet (Ambien) 10 mg PO QHS PRN insomnia #30 tabs 08/11/24 08/20/24 Rx tramadol 50 mg tablet 50 mg PO Q6H PRN pain #15 tabs 08/19/24 08/20/24 Rx Allergies Allergy/AdvReac Type Severity Reaction Status Date / Time No Known Allergies Allergy Verified 08/20/24 18:20 Vital Signs Vital Signs - 24 hr 08/20/24 16:21 08/20/24 18:00 08/20/24 20:39 Temperature 36.6 C Pulse Rate 72 82 80 Respiratory Rate 20 18 16 Blood Pressure 154/78 H 140/90 142/77 H Pulse Oximetry 96 96 97 Oxygen Delivery 08/20/24 21:08 08/20/24 21:28 08/21/24 04:06 Temperature 36.5 C 36.4 C L Pulse Rate 78 73 Respiratory Rate 20 20 Blood Pressure 146/78 H 127/71 Pulse Oximetry 95 93 Oxygen Delivery Room Air 08/21/24 13:39 Temperature 36.8 C Pulse Rate 77 Respiratory Rate 18 Blood Pressure 148/82 H Pulse Oximetry 96 Oxygen Delivery Exam Const: General: comfortable and no acute distress HENMT: Ears: TM's normal bilaterally Face/Nose/Sinus: Normal nares present Mouth: Yes moist mucous membranes Eyes: General: appearance normal, both eyes and all related structures Sclera: sclerae normal Pupils: Equal, round and reactive pupils present EOM: EOMs intact bilaterally Neck: Neck: supple and no JVD Resp: Effort & Inspection: normal respiratory effort Auscultation: clear to auscultation bilaterally Cardio: Rate: regular rate Rhythm: regular rhythm GI: Other: Abdomen is soft, obese, and nontender. Exam is benign. Rectal exam reveals normal sphincter tone. She has a large combined internal and external hemorrhoid without thrombosis in the right posterior lateral position at for 3 to 4 o'clock with the patient prone. Smaller left lateral hemorrhoid without thrombosis. No evidence of necrotic hemorrhoids. The hemorrhoids are edematous and irritated friable but again no evidence of thrombosed hemorrhoid or necrotic hemorrhoids. Skin: General skin exam: normal color and no rashes or lesions noted Neuro: General: gait normal Speech: normal speech Motor exam (neuro): 5/5 motor strength present throughout Sensory Exam: normal sensation Extrem: General: normal to inspection Psych: Mental Status: mental status grossly normal Affect: normal affect Results Labs 08/21/24 04:53 08/21/24 04:53 Labs: Short CBC 08/20/24 08/21/24 Range/Units 18:17 04:53 WBC 7.6 4.4 L (4.5-10.0) K/mm3 Hgb 13.3 12.9 (12.0-15.0) g/dL Hct 41.7 40.1 (37.0-47.0) % Plt Count 359 342 (150-375) k/mm3 BMP 08/20/24 08/21/24 18:17 04:53 Sodium 135 L 135 L Potassium 4.4 4.3 Chloride 101 101 Carbon Dioxide 26 29 BUN 10 9 Creatinine 0.86 0.86 Glucose 96 105 Calcium 8.9 8.5 Liver Function 08/20/24 Range/Units 18:17 Total Bilirubin 0.5 (0.2-1.3) mg/dL AST 35 (14-36) U/L ALT 31 (6-35) U/L Alkaline Phosphatase 98 (38-126) U/L Albumin 4.1 (3.5-5.1) g/dL
[2024-08-21] MEDS: oxyCODONE/ACETAMINOPHEN (*CRX) 5-325 MG TABLET 1 TABLET PO ×2 (16:20→21:06)
[2024-08-21 20:11] VITALS: BP 174/89; PULSE 84; RESP 16; TEMP 37.1; O2SAT 95
[2024-08-21 20:40] VITALS: O2SAT 94
[2024-08-21] MEDS: HYDROCORTISONE 2.5% CREAM 30 GM TUBE 1 APPLIC RECTAL (21:01)
[2024-08-22 05:16] VITALS: BP 141/70; PULSE 73; RESP 16; TEMP 36.5; O2SAT 92
[2024-08-22] MEDS: LEVOTHYROXINE SODIUM 100 MCG TABLET PO (06:15)
[2024-08-22 08:11] VITALS: PULSE 76; RESP 20; O2SAT 96
[2024-08-22] MEDS: FLUTICASONE/SALMETEROL 230-21 MCG INHALER 1 PUFF 2 PUFF INHALATION (08:11)
[2024-08-22] MEDS: oxyCODONE/ACETAMINOPHEN (*CRX) 5-325 MG TABLET 1 TABLET PO ×4 (08:37→21:27)
[2024-08-22] MEDS: DOCUSATE SODIUM 100 MG CAPSULE PO ×2 (08:37→21:26)
[2024-08-22] MEDS: polyethylene glycoL 3350 17 GM POWD.PACK PO (08:38)
[2024-08-22] MEDS: HYDROCORTISONE 2.5% CREAM 30 GM TUBE 1 APPLIC RECTAL ×2 (08:38→21:53)
[2024-08-22] MEDS: DULoxetine HCL 60 MG CAPSULE.DR PO (08:38)
[2024-08-22] MEDS: PANTOPRAZOLE 40 MG TABLET PO ×2 (08:38→16:12)
--- NOTE | 2024-08-22 11:49 | PM.IMPN ---
Progress Note: A&P Assessment and Plan (1) Hemorrhoids: Code(s): K64.9 - Unspecified hemorrhoids Status: Acute Assessment and Plan: History of severe hemorrhoids that typically resolve with prep H. Followed by GI, last seen 08/19. At this appointment patient noted to have a nonbleeding mass with smooth edges that was tender to the touch. Concerning for prolapsed internal hemorrhoids vs recta prolapse vs other. - Colonoscopy 04/20/24: Ascending colon polyp (s/p polypectomy which showed tubulovillous adenoma with no evidence of high grade dysplasia) and diverticulosis - analgesics - GI recommending RectiCare (lidocaine) cream, tramadol, and surgery referral - Surgery consulted, appreciate recommendations Hemorrhoids are very swollen and friable, recommend non operative maangement allowing the hemorrhoid to shrink prior to an excisional hemorrhoidectomy as an outpatient Continue stool softeners and miralax, Anusol 2.5% hydrocortisone cream to be applied rectally b.i.d.. Lidocaine solution 4% to apply to the hemorrhoid for pain as needed and Low fiber diet (2) Hypothyroidism, unspecified: Qualifiers: Hypothyroidism type: unspecified Qualified Code(s): E03.9 - Hypothyroidism, unspecified Code(s): E03.9 - Hypothyroidism, unspecified Status: Acute Assessment and Plan: Continue Synthroid 100 mcg daily Time Spent With Patient Time with patient: 25 - 35 minutes Subjective Date/time seen: 08/22/24 11:49 Interval history: 63 year old female with past medical history of IBS, hemorrhoids, HLD, hypothyroidism, and iron deficiency anemia presents to the hospital from her GI appointment for severe rectal pain secondary to hemorrhoids. Patient is pleasant lying comfortably in bed with at bedside. She states that rectal discomfort has much improved on the current regimen. She notes that when she passes gas she continues to have slight pain but this has improved since admission. She has yet to have a bowel movement. She has no other complaints denying chest pain, shortness of breath, palpitations, nausea/vomiting and abdominal pain. Review of Systems Review of Systems: All systems reviewed & are unremarkable except as noted in HPI and below Exam Narrative: AF HR 76 RR 20 SpO2 96 BP 141/70 General: female in no acute respiratory distress who is nontoxic appearing, lying semi recumbent in bed. HEENT: Normocephalic. Atraumatic. Extraocular movement intact. Sclera clear and anicteric. No facial asymmetry. Chest: Lungs are clear to auscultation bilaterally. CV: Heart was regular rate and rhythm. Abd: Abdomen was soft. Nontender. Nondistended. Positive bowel sounds. GI: Multiple external hemorrhoids that are tender to soft touch. No new blood on the pad. Neuro: Patient is alert and oriented x4. Speech is clear. Objective Data Vital Signs Vital Signs: Vital Signs - 24 hr 08/21/24 13:39 08/21/24 20:00 08/21/24 20:11 Temperature 98.3 F 98.7 F Pulse Rate 77 84 Respiratory Rate 18 16 Blood Pressure 148/82 H 174/89 H Pulse Oximetry 96 95 Oxygen Delivery Room Air Fraction of Inspired Oxygen 08/21/24 20:40 08/22/24 05:16 08/22/24 08:11 Temperature 97.7 F Pulse Rate 73 Respiratory Rate 16 Blood Pressure 141/70 H Pulse Oximetry 94 92 96 Oxygen Delivery Room Air Room Air Fraction of Inspired Oxygen 21 08/22/24 08:11 Temperature Pulse Rate 76 Respiratory Rate 20 Blood Pressure Pulse Oximetry Oxygen Delivery Fraction of Inspired Oxygen Intake/Output Intake/Output: Intake & Output 08/19/24 08/20/24 08/21/24 08/22/24 23:59 23:59 23:59 23:59 Intake Total 510 440 Balance 510 440 Meds/Results Medications: Active Medications Generic Name Dose Route Start Last Admin Trade Name Freq PRN Reason Stop Dose Admin Acetaminophen 500 mg 08/20/24 21:32 Acetaminophen 500 Mg Tablet PO Q6H PRN Mild Pain (1-3) or Fever Docusate Sodium 100 mg 08/20/24 21:00 08/22/24 08:37 Docusate Sodium 100 Mg Capsule PO 100 mg Q12HR MICKEY Administration Duloxetine HCl 60 mg 08/21/24 09:00 08/22/24 08:38 Duloxetine Hcl 60 Mg Capsule.Dr PO 60 mg DAILY MICKEY Administration Hydrocortisone 1 applic 08/21/24 21:00 08/22/24 08:38 Hydrocortisone 2.5% Cream 30 Gm Tube RECTAL 1 applic Q12HR MICKEY Administration Levothyroxine Sodium 100 mcg 08/21/24 06:30 08/22/24 06:15 Levothyroxine Sodium 100 Mcg Tablet PO 100 mcg DAILY@0630 MICKEY Administration Lidocaine HCl 1 applic 08/21/24 14:55 Lidocaine 4% Soln 50 Ml Btl TOPICAL PRN PRN Pain Magnesium Hydroxide 30 ml 08/21/24 14:54 Magnesium Hydroxide Susp 30 Ml Udc PO Q12H PRN Constipation Morphine Sulfate 4 mg 08/20/24 19:47 Morphine Sulfate (*Crx) 4 Mg/Ml Inj IV PUSH Q2H PRN Pain Rated 7-10 Ondansetron HCl 4 mg 08/20/24 19:47 08/21/24 16:23 Ondansetron Inj 4 Mg/2 Ml Vial IV PUSH 4 mg Q4H PRN Administration Nausea Oxycodone/Acetaminophen 1 tablet 08/21/24 14:52 08/22/24 08:37 Oxycodone/Acetaminophen (*Crx) 5-325 Mg Tablet PO 1 tablet Q4H PRN Administration Pain Rated 7-10 Pantoprazole Sodium 40 mg 08/20/24 21:40 08/22/24 08:38 Pantoprazole 40 Mg Tablet PO 40 mg BID MICKEY Administration Polyethylene Glycol 17 gm 08/22/24 09:00 08/22/24 08:38 Polyethylene Glycol 3350 17 Gm Powd.Pack PO 17 gm QAM MICKEY Administration Fluticasone/Salmeterol 2 puff 08/21/24 09:00 08/22/24 08:11 Fluticasone/Salmeterol 230-21 Mcg Inhaler 1 Puff INHALATION 2 puff DAILY MICKEY Administration Zolpidem Tartrate 10 mg 08/20/24 21:30 Zolpidem Tartrate (*Crx) 5 Mg Tablet PO QHS PRN insomnia Quality VTE Prophylaxis VTE prophylaxis: mechanical ordered
--- NOTE | 2024-08-22 12:41 | P.PN_ITS ---
Progress Note: A&P Assessment and Plan (1) Hemorrhoids: Code(s): K64.9 - Unspecified hemorrhoids Status: Acute Assessment and Plan: Patient has intractable pain from her hemorrhoids is improving. Continue Perc ocet now for pain. Continue application of lidocaine jelly and hydrocortisone creams to the hemorrhoid. Will give her a dose of milk of magnesia today. Will reassess tomorrow hopefully she can go home in the next 1 to 2 days on oral pain medications and then plan for an interval outpatient excisional hemorrhoidectomy. Subjective Date/time seen: 08/22/24 12:41 Interval history: Patient feels a little better today in terms of her rectal pain. She was able to sleep last evening. She is using Percocet for pain now about every 4hours. Has not had a bowel movement today. Was she may need to have 1. She does have milk of magnesia ordered p.r.n.. Exam GI: Other: Rectal exam reveals continued swelling redness but no bleeding of a large prolapsing nonthrombosed and non necrotic hemorrhoid. Objective Data Vital Signs Vital Signs: Vital Signs - 24 hr 08/21/24 13:39 08/21/24 20:00 08/21/24 20:11 Temperature 36.8 C 37.1 C Pulse Rate 77 84 Respiratory Rate 18 16 Blood Pressure 148/82 H 174/89 H Pulse Oximetry 96 95 Oxygen Delivery Room Air Fraction of Inspired Oxygen 08/21/24 20:40 08/22/24 05:16 08/22/24 08:11 Temperature 36.5 C Pulse Rate 73 Respiratory Rate 16 Blood Pressure 141/70 H Pulse Oximetry 94 92 96 Oxygen Delivery Room Air Room Air Fraction of Inspired Oxygen 21 08/22/24 08:11 Temperature Pulse Rate 76 Respiratory Rate 20 Blood Pressure Pulse Oximetry Oxygen Delivery Fraction of Inspired Oxygen Intake/Output Intake/Output: Intake & Output 08/19/24 08/20/24 08/21/24 08/22/24 23:59 23:59 23:59 23:59 Intake Total 510 440 Balance 510 440 Meds/Results Medications: Active Medications Generic Name Dose Route Start Last Admin Trade Name Freq PRN Reason Stop Dose Admin Acetaminophen 500 mg 08/20/24 21:32 Acetaminophen 500 Mg Tablet PO Q6H PRN Mild Pain (1-3) or Fever Docusate Sodium 100 mg 08/20/24 21:00 08/22/24 08:37 Docusate Sodium 100 Mg Capsule PO 100 mg Q12HR MICKEY Administration Duloxetine HCl 60 mg 08/21/24 09:00 08/22/24 08:38 Duloxetine Hcl 60 Mg Capsule.Dr PO 60 mg DAILY MICKEY Administration Hydrocortisone 1 applic 08/21/24 21:00 08/22/24 08:38 Hydrocortisone 2.5% Cream 30 Gm Tube RECTAL 1 applic Q12HR MICKEY Administration Levothyroxine Sodium 100 mcg 08/21/24 06:30 08/22/24 06:15 Levothyroxine Sodium 100 Mcg Tablet PO 100 mcg DAILY@0630 MICKEY Administration Lidocaine HCl 1 applic 08/21/24 14:55 Lidocaine 4% Soln 50 Ml Btl TOPICAL PRN PRN Pain Magnesium Hydroxide 30 ml 08/21/24 14:54 Magnesium Hydroxide Susp 30 Ml Udc PO Q12H PRN Constipation Morphine Sulfate 4 mg 08/20/24 19:47 Morphine Sulfate (*Crx) 4 Mg/Ml Inj IV PUSH Q2H PRN Pain Rated 7-10 Ondansetron HCl 4 mg 08/20/24 19:47 08/21/24 16:23 Ondansetron Inj 4 Mg/2 Ml Vial IV PUSH 4 mg Q4H PRN Administration Nausea Oxycodone/Acetaminophen 1 tablet 08/21/24 14:52 08/22/24 08:37 Oxycodone/Acetaminophen (*Crx) 5-325 Mg Tablet PO 1 tablet Q4H PRN Administration Pain Rated 7-10 Pantoprazole Sodium 40 mg 08/20/24 21:40 08/22/24 08:38 Pantoprazole 40 Mg Tablet PO 40 mg BID MICKEY Administration Polyethylene Glycol 17 gm 08/22/24 09:00 08/22/24 08:38 Polyethylene Glycol 3350 17 Gm Powd.Pack PO 17 gm QAM MICKEY Administration Fluticasone/Salmeterol 2 puff 08/21/24 09:00 08/22/24 08:11 Fluticasone/Salmeterol 230-21 Mcg Inhaler 1 Puff INHALATION 2 puff DAILY MICKEY Administration Zolpidem Tartrate 10 mg 08/20/24 21:30 Zolpidem Tartrate (*Crx) 5 Mg Tablet PO QHS PRN insomnia
[2024-08-22 14:00] VITALS: BP 149/83; PULSE 82; RESP 18; TEMP 36.6; O2SAT 97
[2024-08-22] MEDS: MAGNESIUM HYDROXIDE SUSP 30 ML UDC PO (17:11)
[2024-08-22 20:50] VITALS: BP 138/99; PULSE 82; RESP 16; TEMP 37; O2SAT 94
[2024-08-22] MEDS: ZOLPIDEM TARTRATE (*CRX) 5 MG TABLET 10 MG PO (21:28)
[2024-08-23 05:02] VITALS: BP 131/70; PULSE 73; RESP 16; TEMP 37; O2SAT 90
[2024-08-23] MEDS: LEVOTHYROXINE SODIUM 100 MCG TABLET PO (07:08)
[2024-08-23] MEDS: FLUTICASONE/SALMETEROL 230-21 MCG INHALER 1 PUFF 2 PUFF INHALATION (07:54)
[2024-08-23 07:55] VITALS: O2SAT 97
[2024-08-23 08:57] LABS: Hematocrit 42.2 % (37.0-47.0); Hemoglobin 13.3 g/dL (12.0-15.0); Mean Corpuscular HGB Conc 31.5 g/dl (32-36); Mean Corpuscular Hemoglobin 29.7 pg (26-34); Mean Corpuscular Volume 94.2 fl (80-100); Mean Platelet Volume 9.2 fl (7.4-10.4); Platelet Count Result 331 k/mm3 (150-375); Red Blood Count 4.48 M/mm3 (4.2-5.4); Red Cell Distribution Width 14.1 % (11.5-14.5); White Blood Count 4.2 K/mm3 (4.5-10.0)
[2024-08-23 09:09] LABS: Alanine Aminotransferase 103 U/L (6-35); Albumin Level 4.1 g/dL (3.5-5.1); Alkaline Phosphatase 114 U/L (38-126); Anion Gap 9 mmol/L (4-12); Aspartate Amino Transferase 61 U/L (14-36); Bilirubin,Total 0.3 mg/dL (0.2-1.3); Blood Urea Nitrogen 10 mg/dL (7-17); Calcium 8.6 mg/dL (8.4-10.2); Carbon Dioxide 28 mmol/L (22-30); Chloride 100 mmol/L (98-107); Estimated CRCL calculation 91 ml/min; Estimated Glomerular Filt Rate > 60; Glucose 99 mg/dL (65-110); Potassium 3.9 mmol/L (3.4-5.0); Sodium 137 mmol/L (137-145)
[2024-08-23] MEDS: DULoxetine HCL 60 MG CAPSULE.DR PO (09:10)
[2024-08-23] MEDS: PANTOPRAZOLE 40 MG TABLET PO ×2 (09:10→17:04)
[2024-08-23] MEDS: DOCUSATE SODIUM 100 MG CAPSULE PO ×2 (09:10→21:58)
[2024-08-23] MEDS: polyethylene glycoL 3350 17 GM POWD.PACK PO (09:10)
[2024-08-23] MEDS: HYDROCORTISONE 2.5% CREAM 30 GM TUBE 1 APPLIC RECTAL ×2 (09:10→21:59)
[2024-08-23] MEDS: oxyCODONE/ACETAMINOPHEN (*CRX) 5-325 MG TABLET 1 TABLET PO ×2 (09:13→13:55)
[2024-08-23] MEDS: MAGNESIUM HYDROXIDE SUSP 30 ML UDC PO ×2 (11:47→12:00)
--- NOTE | 2024-08-23 12:02 | WPDPN ---
Progress Note: A&P Assessment and Plan (1) Hemorrhoids: Code(s): K64.9 - Unspecified hemorrhoids Status: Acute Assessment and Plan: Hemorrhoids are was swollen improved using Anusol cream and lidocaine topical ointment. Will give her 2 doses of milk of magnesia to promote a bowel movement as she is anxious about going home without having a bowel movement. If she has a bowel movement and is okay on Percocet as needed for pain then she can go home today. She will need to follow-up see me in my office later this week to hopefully schedule a interval excisional hemorrhoidectomy. Will keep her on lidocaine jelly and Anusol cream with hydrocortisone at home. Prescriptions written for her pharmacy. (2) Rectal bleeding: Code(s): K62.5 - Hemorrhage of anus and rectum Status: Acute Assessment and Plan: No further rectal bleeding at this time. Subjective Date/time seen: 08/23/24 12:02 Interval history: Patient is still having some rectal pain due to or hemorrhoids. Percocet 5 every 4hours. Tolerating regular diet. A bowel movement yet but is getting milk of magnesia this morning. No bleeding or hemorrhoids. Exam GI: Other: Rectal exam reveals hemorrhoids to be less swollen. No thrombosis. Moderately tender but not thrombosed. Improved. Objective Data Vital Signs Vital Signs: Vital Signs - 24 hr 08/22/24 14:00 08/22/24 20:50 08/23/24 05:02 Temperature 36.6 C 37.0 C 37.0 C Pulse Rate 82 82 73 Respiratory Rate 18 16 16 Blood Pressure 149/83 H 138/99 H 131/70 Pulse Oximetry 97 94 90 Oxygen Delivery 08/23/24 07:55 Temperature Pulse Rate Respiratory Rate Blood Pressure Pulse Oximetry 97 Oxygen Delivery Room Air Intake/Output Intake/Output: Intake & Output 08/20/24 08/21/24 08/22/24 08/23/24 23:59 23:59 23:59 23:59 Intake Total 510 1969 790 Balance 510 1969 790 Meds/Results Medications: Active Medications Generic Name Dose Route Start Last Admin Trade Name Freq PRN Reason Stop Dose Admin Acetaminophen 500 mg 08/20/24 21:32 Acetaminophen 500 Mg Tablet PO Q6H PRN Mild Pain (1-3) or Fever Docusate Sodium 100 mg 08/20/24 21:00 08/23/24 09:10 Docusate Sodium 100 Mg Capsule PO 100 mg Q12HR MICKEY Administration Duloxetine HCl 60 mg 08/21/24 09:00 08/23/24 09:10 Duloxetine Hcl 60 Mg Capsule.Dr PO 60 mg DAILY MICKEY Administration Hydrocortisone 1 applic 08/21/24 21:00 08/23/24 09:10 Hydrocortisone 2.5% Cream 30 Gm Tube RECTAL 1 applic Q12HR MICKEY Administration Levothyroxine Sodium 100 mcg 08/21/24 06:30 08/23/24 07:08 Levothyroxine Sodium 100 Mcg Tablet PO 100 mcg DAILY@0630 MICKEY Administration Lidocaine HCl 1 applic 08/21/24 14:55 Lidocaine 4% Soln 50 Ml Btl TOPICAL PRN PRN Pain Magnesium Hydroxide 30 ml 08/21/24 14:54 08/23/24 12:00 Magnesium Hydroxide Susp 30 Ml Udc PO 30 ml Q12H PRN Administration Constipation Morphine Sulfate 4 mg 08/20/24 19:47 Morphine Sulfate (*Crx) 4 Mg/Ml Inj IV PUSH Q2H PRN Pain Rated 7-10 Ondansetron HCl 4 mg 08/20/24 19:47 08/21/24 16:23 Ondansetron Inj 4 Mg/2 Ml Vial IV PUSH 4 mg Q4H PRN Administration Nausea Oxycodone/Acetaminophen 1 tablet 08/21/24 14:52 08/23/24 09:13 Oxycodone/Acetaminophen (*Crx) 5-325 Mg Tablet PO 1 tablet Q4H PRN Administration Pain Rated 7-10 Pantoprazole Sodium 40 mg 08/20/24 21:40 08/23/24 09:10 Pantoprazole 40 Mg Tablet PO 40 mg BID MICKEY Administration Polyethylene Glycol 17 gm 08/22/24 09:00 08/23/24 09:10 Polyethylene Glycol 3350 17 Gm Powd.Pack PO 17 gm QAM MICKEY Administration Fluticasone/Salmeterol 2 puff 08/21/24 09:00 08/23/24 07:54 Fluticasone/Salmeterol 230-21 Mcg Inhaler 1 Puff INHALATION 2 puff DAILY MICKEY Administration Zolpidem Tartrate 10 mg 08/20/24 21:30 08/22/24 21:28 Zolpidem Tartrate (*Crx) 5 Mg Tablet PO 10 mg QHS PRN Administration insomnia Labs Labs: Laboratory Results - last 24 hr 08/23/24 08/23/24 08:52 08:53 WBC 4.2 L RBC 4.48 Hgb 13.3 Hct 42.2 MCV 94.2 MCH 29.7 MCHC 31.5 L RDW 14.1 Plt Count 331 MPV 9.2 Sodium 137 Potassium 3.9 Chloride 100 Carbon Dioxide 28 Anion Gap 9 BUN 10 Creatinine 0.82 Estim Creat Clear Calc 91 Estimated GFR > 60 Glucose 99 Calcium 8.6 Total Bilirubin 0.3 AST 61 H ALT 103 H Alkaline Phosphatase 114 Total Protein 7.0 Albumin 4.1
[2024-08-23 14:00] VITALS: BP 128/84; PULSE 78; RESP 16; TEMP 36.5; O2SAT 90
--- NOTE | 2024-08-23 15:18 | P.PNIM_ITS ---
Progress Note: A&P Assessment and Plan (1) Hemorrhoids: Code(s): K64.9 - Unspecified hemorrhoids Status: Acute Assessment and Plan: History of severe hemorrhoids that typically resolve with prep H. Followed by GI, last seen 08/19. At this appointment patient noted to have a nonbleeding mass with smooth edges that was tender to the touch. Concerning for prolapsed internal hemorrhoids vs recta prolapse vs other. - Colonoscopy 04/20/24: Ascending colon polyp (s/p polypectomy which showed tubulovillous adenoma with no evidence of high grade dysplasia) and diverticulosis - analgesics - GI recommending RectiCare (lidocaine) cream, tramadol, and surgery referral - Surgery consulted, appreciate recommendations Continue stool softeners and miralax, Anusol 2.5% hydrocortisone cream to be applied rectally b.i.d.. Lidocaine solution 4% to apply to the hemorrhoid for pain as needed and Low fiber diet Follow up in office later this week Per surgery able to discharge today, however patient is anxious about having a BM. Given milk of mag x2 today. (2) Hypothyroidism, unspecified: Qualifiers: Hypothyroidism type: unspecified Qualified Code(s): E03.9 - Hypothyroidism, unspecified Code(s): E03.9 - Hypothyroidism, unspecified Status: Acute Assessment and Plan: Continue Synthroid 100 mcg daily Time Spent With Patient Time with patient: 25 - 35 minutes Subjective Date/time seen: 08/23/24 15:18 Interval history: 63 year old female with past medical history of IBS, hemorrhoids, HLD, hypothyroidism, and iron deficiency anemia presents to the hospital from her GI appointment for severe rectal pain secondary to hemorrhoids. Patient is pleasant lying comfortably in bed with family at bedside. She is endorsing increased rectal pressure. She has yet to have a BM but continues to pass gas. She is anxious about being discharged prior to having a BM. Per surgery able to discharge today, but given milk of mag x2 to help facilitate BM. If no BM today patient can likely discharge tomorrow. She has no other complaints denying chest pain, shortness of breath, palpitations, nausea and vomiting. Review of Systems 2 Review of Systems: All systems reviewed & are unremarkable except as noted in HPI and below Exam Narrative: AF HR 78 RR 16 SPO2 90 BP 128/84 General: female in no acute respiratory distress who is nontoxic appearing, lying semi recumbent in bed. HEENT: Normocephalic. Atraumatic. Extraocular movement intact. Sclera clear and anicteric. No facial asymmetry. Chest: Lungs are clear to auscultation bilaterally. CV: Heart was regular rate and rhythm. Abd: Abdomen was soft. Nontender. Nondistended. Positive bowel sounds. GI: Multiple external hemorrhoids that are tender to soft touch. Shrinking in size. Neuro: Patient is alert and oriented x4. Speech is clear. Objective Data Vital Signs Vital Signs: Vital Signs - 24 hr 08/22/24 20:50 08/23/24 05:02 08/23/24 07:55 Temperature 98.6 F 98.6 F Pulse Rate 82 73 Respiratory Rate 16 16 Blood Pressure 138/99 H 131/70 Pulse Oximetry 94 90 97 Oxygen Delivery Room Air 08/23/24 14:00 Temperature 97.7 F Pulse Rate 78 Respiratory Rate 16 Blood Pressure 128/84 Pulse Oximetry 90 Oxygen Delivery Intake/Output Intake/Output: Intake & Output 08/20/24 08/21/24 08/22/24 08/23/24 23:59 23:59 23:59 23:59 Intake Total 510 1969 1012 Balance 510 1969 1012 Meds/Results Medications: Active Medications Generic Name Dose Route Start Last Admin Trade Name Freq PRN Reason Stop Dose Admin Acetaminophen 500 mg 08/20/24 21:32 Acetaminophen 500 Mg Tablet PO Q6H PRN Mild Pain (1-3) or Fever Docusate Sodium 100 mg 08/20/24 21:00 08/23/24 09:10 Docusate Sodium 100 Mg Capsule PO 100 mg Q12HR MICKEY Administration Duloxetine HCl 60 mg 08/21/24 09:00 08/23/24 09:10 Duloxetine Hcl 60 Mg Capsule. PO 60 mg DAILY MICKEY Administration Hydrocortisone 1 applic 08/21/24 21:00 08/23/24 09:10 Hydrocortisone 2.5% Cream 30 Gm Tube RECTAL 1 applic Q12HR MICKEY Administration Levothyroxine Sodium 100 mcg 08/21/24 06:30 08/23/24 07:08 Levothyroxine Sodium 100 Mcg Tablet PO 100 mcg DAILY@0630 MICKEY Administration Lidocaine HCl 1 applic 08/21/24 14:55 Lidocaine 4% Soln 50 Ml Btl TOPICAL PRN PRN Pain Magnesium Hydroxide 30 ml 08/21/24 14:54 08/23/24 12:00 Magnesium Hydroxide Susp 30 Ml Udc PO 30 ml Q12H PRN Administration Constipation Morphine Sulfate 4 mg 08/20/24 19:47 Morphine Sulfate (*Crx) 4 Mg/Ml Inj IV PUSH Q2H PRN Pain Rated 7-10 Ondansetron HCl 4 mg 08/20/24 19:47 08/21/24 16:23 Ondansetron Inj 4 Mg/2 Ml Vial IV PUSH 4 mg Q4H PRN Administration Nausea Oxycodone/Acetaminophen 1 tablet 08/21/24 14:52 08/23/24 13:55 Oxycodone/Acetaminophen (*Crx) 5-325 Mg Tablet PO 1 tablet Q4H PRN Administration Pain Rated 7-10 Pantoprazole Sodium 40 mg 08/20/24 21:40 08/23/24 09:10 Pantoprazole 40 Mg Tablet PO 40 mg BID MICKEY Administration Polyethylene Glycol 17 gm 08/22/24 09:00 08/23/24 09:10 Polyethylene Glycol 3350 17 Gm Powd.Pack PO 17 gm QAM MICKEY Administration Fluticasone/Salmeterol 2 puff 08/21/24 09:00 08/23/24 07:54 Fluticasone/Salmeterol 230-21 Mcg Inhaler 1 Puff INHALATION 2 puff DAILY MICKEY Administration Zolpidem Tartrate 10 mg 08/20/24 21:30 08/22/24 21:28 Zolpidem Tartrate (*Crx) 5 Mg Tablet PO 10 mg QHS PRN Administration insomnia Labs Labs: Laboratory Results - last 24 hr 08/23/24 08/23/24 08:52 08:53 WBC 4.2 L RBC 4.48 Hgb 13.3 Hct 42.2 MCV 94.2 MCH 29.7 MCHC 31.5 L RDW 14.1 Plt Count 331 MPV 9.2 Sodium 137 Potassium 3.9 Chloride 100 Carbon Dioxide 28 Anion Gap 9 BUN 10 Creatinine 0.82 Estim Creat Clear Calc 91 Estimated GFR > 60 Glucose 99 Calcium 8.6 Total Bilirubin 0.3 AST 61 H ALT 103 H Alkaline Phosphatase 114 Total Protein 7.0 Albumin 4.1 Quality VTE Prophylaxis VTE prophylaxis: mechanical ordered
[2024-08-23 21:03] VITALS: BP 145/108; PULSE 89; RESP 16; TEMP 36.8; O2SAT 97
[2024-08-23 21:05] VITALS: BP 147/94
[2024-08-24] MEDS: LIDOCAINE 4% SOLN 50 ML BTL 1 APPLIC TOPICAL ×2 (00:04→08:48)
[2024-08-24] MEDS: BISACODYL 10 MG SUPPOSITORY RECTAL (00:15)
[2024-08-24] MEDS: LEVOTHYROXINE SODIUM 100 MCG TABLET PO (05:51)
[2024-08-24] MEDS: oxyCODONE/ACETAMINOPHEN (*CRX) 5-325 MG TABLET 1 TABLET PO (05:51)
[2024-08-24 06:00] VITALS: BP 146/95; PULSE 65; RESP 16; TEMP 36.7; O2SAT 100
[2024-08-24 08:16] VITALS: O2SAT 95
[2024-08-24] MEDS: FLUTICASONE/SALMETEROL 230-21 MCG INHALER 1 PUFF 2 PUFF INHALATION (08:16)
[2024-08-24] MEDS: PANTOPRAZOLE 40 MG TABLET PO (08:47)
[2024-08-24] MEDS: DOCUSATE SODIUM 100 MG CAPSULE PO (08:47)
[2024-08-24] MEDS: polyethylene glycoL 3350 17 GM POWD.PACK PO (08:47)
[2024-08-24] MEDS: DULoxetine HCL 60 MG CAPSULE.DR PO (08:47)
[2024-08-24] MEDS: HYDROCORTISONE 2.5% CREAM 30 GM TUBE 1 APPLIC RECTAL (08:48)
[2024-08-24 08:49] VITALS: RESP 16; O2SAT 95
--- NOTE | 2024-08-24 12:55 | P.DS_ITS ---
DS: Admitting Diagnosis Discharge Date 08/24/2024 Admitting Diagnosis Hemorrhoids hypothyroidism DS: Discharge Diagnosis Discharge Diagnosis (1) Hemorrhoids: Code(s): K64.9 - Unspecified hemorrhoids Status: Acute (2) Hypothyroidism, unspecified: Qualifiers: Hypothyroidism type: unspecified Qualified Code(s): E03.9 - Hypothyroidism, unspecified Code(s): E03.9 - Hypothyroidism, unspecified Status: Acute DS: Summary Hospital Course Reason for hospitalization: Hemorrhoids hypothyroidism Hospital Course: 63 year old female with past medical history of IBS, hemorrhoids, HLD, hypothyroidism, and iron deficiency anemia presents to the hospital from her GI appointment for severe rectal pain secondary to hemorrhoids. Followed by GI, last seen 08/19. At this appointment patient noted to have a nonbleeding mass with smooth edges that was tender to the touch. Concerning for prolapsed internal hemorrhoids. Patient was sent to the hospital for surgical workup. Surgery consulted. Surgery recommended non operative management to get the hemorrhoid to shrink and then set her up for a formal excisional hemorrhoidectomy as an outpatient. Patient had a small bowel movement prior to discharge and states pain was manageable. Patient to remain on pain regimen, bowel regimen, lidocaine jelly and anusol cream with hydrocortisone. Patient has no complaints at time of discharge denying chest pain, shortness a breath, palpitations, nausea/vomiting, and abdominal pain. Patient discharged home with family in a stable condition. She is to follow up with GI as scheduled. Status at Discharge Functional status at discharge: independent ambulation Time Spent with Patient Time attestation: Total time spent providing and/or coordinating discharge services: Time spent: Greater than 30 minutes Exam Narrative: AF HR 65 RR 16 SpO2 95 BP 146/95 General: female in no acute respiratory distress who is nontoxic appearing, lying semi recumbent in bed. HEENT: Normocephalic. Atraumatic. Extraocular movement intact. Sclera clear and anicteric. No facial asymmetry. Chest: Lungs are clear to auscultation bilaterally. CV: Heart was regular rate and rhythm. Abd: Abdomen was soft. Nontender. Nondistended. Positive bowel sounds. GI: Multiple external hemorrhoids that are tender to soft touch. Shrinking in size. Neuro: Patient is alert and oriented x4. Speech is clear. Discharge Plan Discharge Attending physician on discharge: Amanda Parada Consulting providers: Malik Xiao Discharging Clinician: Peg Watts Anticipated Discharge Date/Time: 08/24/24 12:52 Patient Disposition: Home Activity: as tolerated and other - see discharge instructions Diet: low fiber Discharge Instructions: Discharge disposition: Patient admitted to the hospital for pain secondary to hemorrhoids Evaluated by surgery Stay on stool softeners and laxatives [id number] at home to continue having bowel movements and avoid constipation. Miralax and colace, attached is information on these medications Continue Percocet for break through pain, attached is information on this medication Do not drive or operate heavy machinery on this medication Call my office today to reschedule your appointment for Saturday for 08/26/24. Take caution while standing, rising, or moving Change positions slowly taking a break between each position change If you standing feel dizzy sit back down and take a break Encouraged to continue with yearly vaccinations Return to the emergency department if he developed sudden shortness of breath, chest pain, nausea, vomiting, upset stomach or intractable diarrhea Return to the emergency department if you develop fever greater than 101.5 Follow-up with the primary care physician within 1-2 weeks Thank you for [facility] for your healthcare needs Patient Instructions: Hydrocodone/Acetaminophen (By mouth), Polyethylene Glycol 3350 (By mouth), Laxative, Stimulant Combination (By mouth), Hemorrhoids (DC), Low Fiber Diet (DC) Patient Language: Malawian Stand Alone Forms: General Discharge Information Follow-up/Referrals: Farhan Irene MD [Primary Care Provider] - Malik Xiao MD [Physician] - (Follow-up Dr. Xiao in the office on Saturday08/26/24. Call office to reschedule the appointment for that time and date.) Discharge Medications: New oxycodone-acetaminophen [Percocet] 5-325 mg tablet 1 tablet PO Q4H PRN (Reason: pain) Qty: 30 0RF lidocaine 5 % cream 1 applic topical BID PRN (Reason: pain) Qty: 30 1RF hydrocortisone [Anusol-HC] 2.5 % cream with perineal applicator 1 applic RECTAL BID PRN (Reason: hemorrhoids) Qty: 1 1RF Continued omeprazole 20 mg tablet,delayed release (DR/EC) 20 mg PO BID Patient Comments: [id number] tramadol 50 mg tablet 50 mg PO Q6H PRN (Reason: pain) Qty: 15 0RF magnesium oxide 500 mg capsule 500 mg PO BID PRN (Reason: constipation) ferrous sulfate 325 mg (65 mg iron) tablet,delayed release (DR/EC) 325 mg PO DAILY Patient Comments: take 2 tablets every other day and 1 daily Ubrelvy 100 mg tablet 100 mg PO ONCE PRN (Reason: migraine) Patient Comments: samples x2 given 06/03/2023. Rx Instructions: as a single dose; may repeat once in >=2 hours after first dose if needed omega-3 fatty acids [Fish Oil Concentrate] 1,000 mg Capsule 2,000 mg PO DAILY fluticasone propion-salmeterol [Advair Diskus] 500-50 mcg/dose blister with device See Rx Instructions .ROUTE .COMPLEX PRN (Reason: Shortness Of Breath Or Wheezing) Rx Instructions: INHALE 1 PUFF BY MOUTH EVERY 12 HOURS cyanocobalamin (vitamin B-12) 1,000 mcg/mL kit 1,000 mcg subcut DIRECTED Patient Comments: due 08/20/24 Rx Instructions: 1,000 mcg subcutaneously every other week cholecalciferol (vitamin D3) 25 mcg (1,000 unit) capsule 3,000 unit PO DAILY (DME) BD Eclipse Luer-Eleazar 3 mL 23 x 1 syringe See Rx Instructions .Route Qty: 20 1RF Rx Instructions: use monthly with vitamin B12 cyclobenzaprine 10 mg tablet 10 mg PO TID PRN (Reason: muscle spasm) Qty: 90 5RF levothyroxine 100 mcg tablet 100 mcg PO . q.a.m. Qty: 90 3RF duloxetine 60 mg capsule,delayed release(DR/EC) 60 mg PO DAILY Qty: 90 3RF zolpidem [Ambien] 10 mg tablet 10 mg PO QHS PRN (Reason: insomnia) Qty: 30 5RF Date of admission: 08/20/24 19:47 Primary Care Provider: Farhan Irene Admitting Provider: Oralia Mckee Attending physician on admission: Peg Watts Condition: Stable Hospitalist MIPS Heart Failure (Exclusion) Patient has history of Heart Transplant or Left Ventricular Assistive Device?: No IF YES, STOP HERE Heart Failure (Qualifier) Patient has current or prior documentation of LVEF less than or equal to 40%, or mod/servere depressed LVSF?: No IF NO, STOP HERE
== END 2024-08-24 13:40 | disposition home or self-care (01) ==
LOC: ANHED 19:47 → ANH2MED 08-21 06:56
PROVIDERS: Admitting Provider General Practice; Emergency Provider Registered Nurse; PCP Family Medicine; Visit Provider Student in an Organized Health Care Education/Training Program
DX: K64.8 Other hemorrhoids (principal); K64.4 Residual hemorrhoidal skin tags; K62.89 Other specified diseases of anus and rectum; K62.5 Hemorrhage of anus and rectum; E03.9 Hypothyroidism, unspecified; D50.9 Iron deficiency anemia, unspecified; K58.2 Mixed irritable bowel syndrome; E66.01 Morbid (severe) obesity due to excess calories; Z68.43 Body mass index [BMI] 50.0-59.9, adult; E78.5 Hyperlipidemia, unspecified; G43.909 Migraine, unspecified, not intractable, without status migrainosus; M79.7 Fibromyalgia; G25.0 Essential tremor; Z86.0101 Personal history of adenomatous and serrated colon polyps; Z86.16 Personal history of COVID-19; Z87.11 Personal history of peptic ulcer disease; Z87.891 Personal history of nicotine dependence; Z90.49 Acquired absence of other specified parts of digestive tract; Z90.710 Acquired absence of both cervix and uterus
CPT/HCPCS: 36415; 80048; 80053; 83690; 83735; 85025; 85027; 85610; 85730; 94640; 96374; 96375; 96376; 99285; A9270; G0378; J2270; J2405

== ENCOUNTER 2024-09-11 01:16 | Day surgery (SDC) | payer OTHER, SELFPAY ==
[2024-09-04 13:54] VITALS: BMI 51.6
--- NOTE | 2024-09-04 13:55 | PC.NURSE ---
Report to the Outpatient Waiting Room, entrance under the green pavilion located off [facility], at time ___829____ on date ___09/11/24____. Planned Procedure Time: ___0 .? Time changes happen often and if your time is changed the preop area will call you the afternoon before. - You and your visitor will be asked to self-screen and do not enter if you have any COVID symptoms. Please call surgeon if you need to reschedule. - A mask is optional within the hospital at this time. NPO at midnight Take only the following medications with a SIP of water on the morning of surgery: ___cyclobenzaprine, duloxetine, levothyroxine, Percocet only if needed, tramadol only if needed___ DO NOT STOP ANY OF YOUR OTHER PRESCRIPTION MEDICATIONS PRIOR TO SURGERY EXCEPT THE FOLLOWING Hold all vitamins and supplements for 3 days per anesthesiologist. Please no make-up, nail malian, hairspray, perfume, deodorant, or body powder the day of surgery.? No jewelry (including any body piercings) or valuables the day of surgery, leave them at home.? Please take a shower or bath the night before, or the morning of, surgery with an antibacterial soap.? Wear comfortable, loose fitting clothing.? - Jewelry must be removed prior to entering the operating room.? Rings and piercings that are not removed may be cut off. - The hospital will not accept responsibility for valuables.? - Please leave all valuables, including medications, at home the day of surgery. If you are going home after surgery, a licensed piledriver carpenter must drive you home.? - NO public transportation without another adult if you receive anesthesia. - We recommend that an adult stay with you for 24 hours following discharge. - We also recommend that you do not drive, make important decision, drink alcoholic beverages, or take any drugs that were not prescribed by your health care provider for at least 24 hours after your discharge time. Follow any additional instructions given to you from your surgeon. Telephone instructions given to October and asked if any additional questions and then verbalized understanding. Patient advised to call surgeon office or pre surgery nurse liaison [phone] if any additional questions.
[2024-09-11] VITALS (8 sets, daily range): BP systolic 120–168; BP diastolic 59–100; PULSE 76–96; RESP 10–18; TEMP 35.9–36.3; O2SAT 92–99
--- OUTSIDE RECORDS SUMMARY | 2024-09-11 01:20 | XMS_ITS | Data Portability ---
Author Organization [facility] [place] Address [address] [place] [address] Care Team Providers Care Logistics Assistant Name Role Phone GAVIOTAERON MIKEY Primary Care Provider [phone] Assessment Encounter Date Assessment Date Assessment LastModified by Organization Details LastModified Time 03/11/2023 03/11/2023 Annual gynecological exam performed. Patient will come back in a year unless there are new symptoms. [email or web address] Not available 03/11/2023 09:47:23 Plan of Treatment [...] of Last Pap Smear completed Elena Luevano [facility] 03/11/2023 09:50:02 005 hysterectomy completed ADI Duckworth [address], [place], [address], [facility] 03/11/2023 11:04:47 990 cholecystectomy completed Elena Luevano [facility] 03/11/2023 13:45:14 979 Appendectomy completed Elena Luevano [facility] 03/11/2023 13:45:28 Imaging Results None [...] Updated DateTime 03/11/2023 163.2 cm 53.1 kg/m2 167456.8 2 g 127 mm[Hg] 79 mm[Hg] Elena Luevano [facility] 09:48:54 Social History Question Answer Notes LastModified by Organizat ion Details LastModified Time Tobacco Smoking Status Former Smoker Elena Luevano [facility] 03/11/2023 13:44:38 What Is Your Level Of Alcohol Consumption? Occasional [email or web address] Information not available 03/11/2023 Are You Blind Or Do You Have Difficulty Seeing? No [email or web address] Information not available 03/11/2023 What Is Your Level Of Caffeine Consumption? Occasional [email or web address] Information not available 03/11/2023 In The 14 Days Before Symptom Onset, Have You Had Close Contact With A Laboratory-confir med COVID-19 While That Case Was Ill? No [email or web address] Information not available 03/11/2023 In The 14 Days Before Symptom Onset, Have You Had Close Contact With A Person Who Is Under Investigation For COVID-19 While That Person Was Ill? No [email or web address] Information not available 03/11/2023 Have You Been To An Area Known To Be High Risk For COVID-19? No [email or web address] Information not available 03/11/2023 Are You Deaf Or Do You Have Serious Difficulty Hearing? No [email or web address] Information not available 03/11/2023 What Type Of Diet Are You Following? REGULAR [email or web address] Information not available 03/11/2023 Have You Ever Been Counseled For Unhealthy Alcohol Use? No [email or web address] Information not available 03/11/2023 Do You Use Your Seat Belt Or Car Seat Routinely? Yes [email or web address] Information not available 03/11/2023 Do You Have Smoke And Carbon Monoxide Detectors In Your Home? Yes [email or web address] Information not available 03/11/2023 Do You Feel Stressed (tense, Restless, Nervous, Or Anxious, Or Unable To Sleep At Night)? [id number] [email or web address] Information not available 03/11/2023 Do You Use Any Illicit Or Recreational Drugs? No [email or web address] Information not available 03/11/2023 Do You Use Sunscreen Routinely? Yes [email or web address] Information not available 03/11/2023 Has Tobacco Cessation Counseling Been Provided? No [email or web address] Information not available 03/11/2023 Do You Or Have You Ever Used Any Other Forms Of Tobacco Or Nicotine? No [email or web address] Information not available 03/11/2023 Sex: Unknown Functional Status Question Answer Note LastModified by Organizat ion Details LastModified Time Do you have difficulty walking or climbing stairs? No [email or web address] Information not available 03/11/2023 Are you able to walk? YESWOREST [email or web address] Information not available 03/11/2023 Are you able to care for yourself? Yes [email or web address] Information not available 03/11/2023 Do you have difficulty dressing or bathing? No [email or web address] Information not available 03/11/2023 What is your exercise level? Occasional Information not available 03/11/2023 Mental Status None recorded. Family History Relationship Description Onset Age of this Age Resolved Age Notes LastModified by Organization Details LastModified Time Sister Malignant tumor of breast 70 [email or web address] Not available 03/11 13:41:05 Sister Disorder of thyroid gland [email or web address] Not available 03/11 13:43:35 Paternal Aunt Malignant tumor of breast [email or web address] Not available 03/11 13:41:11 Paternal Aunt Malignant tumor of ovary [email or web address] Not available 03/11 13:43:16 Mother Heart disease [email or web address] Not available 03/11 13:41:46 Mother Hypertensive disorder ovraqhfs76 Not available 03/11 13:43:02 Mother Disorder of thyroid gland [email or web address] Not available 03/11 13:43:35 Father Heart disease [email or web address] Not available 03/11 13:41:46 Father Diabetes mellitus [email or web address] Not available 03/11 13:41:59 Father Hypercholest erolemia [email or web address] Not available 03/11 13:42:31 Father Hypertensive disorder [email or web address] Not available 03/11 13:43:02 Maternal Grandfather Heart disease [email or web address] Not available 03/11 13:41:46 Maternal Grandfather Hypercholest erolemia bqbjauqr70 Not available 03/11 13:42:31 Maternal Grandfather Hypertensive disorder [email or web address] Not available 03/11 13:43:02 Brother Heart disease [email or web address] Not available 03/11 13:41:46 Brother Hypercholest erolemia ayrzcnxj24 Not available 03/11 13:42:31 Brother Hypertensive disorder [email or web address] Not available 03/11 13:43:02 Paternal Uncle Heart disease [email or web address] Not available 03/11 13:41:46 Medical History Condition Response Allergies (Food, seasonal, environmental ) Y Other Y Drug/Latex Allergies/Reactions N Blood Transfusion N Breast Cancer N Dermatologic Disorders N Lung Disease N Defects or Inherited Disease N Breast Problem N Gestational Diabetes N Hematologic disorders N Anesthesia Complications N History of STI N Deep Vein Thrombosis N Polycystic ovary syndrome N Anxiety Disorder Y Autoimmune disease N Arthritis N Polyps N Infertility N Acid Reflux (GERD) Y History of abnormal pap N Cancer N Varicosities N Stroke N Neurologic/Epilepsy N Endometriosis N High Cholesterol N Fibromyalgia Y Headaches N Kidney Disease N Heart Problems N Thyroid Problems Y Kidney or Bladder Problems N GI Problems Y Eating Disorder N Anemia [...] SNOMED-CT Code Diagnosis ICD10 Code Diagnosis Note [id number] ADI Duckworth [place] [address] [address] 03/11/2023 09:07:42 03/11/2023 11:23:12 Gynecologic examination 96162139 Z01.419 WWEhx of hyst for non-cancer ous indication spaps d/c'd unless otherwise indicatedm ammogram scheduled for 05/2023 per ptcolonosc opy due next 2023UTD with PCPRTC in 1 yr or sooner if needed Take Calcium with Vitamin D daily.Do monthly self breast exams.It is advised to get annual flu shot in the fall and she could obtain at [facility] or [facility] take care clinic. If you haven't [...] Name 03/11/2023 1 [employer] (MEDICARE REPLACEMENT PPO) [id number] October Michael Mcgovern [id number] 21 October Froilan Notes Date Note Type Note Provider Name and Address Organization Details Recorded Time 03/11/2023 text/html Annual Internet Network Specialist Post-MenopausalRepo rted bypatient.Menopausa l Symptoms:no menopausal symptoms; [...] in 2023) ADI Duckworth [address], [place], [address], [place] [facility] 03/11/2023 11:05:07 OBGyn Episode Ob Episode Information Episode Created Date Number of Fetuses Patient Bloodtype Patient rh Status Prepregnancy Weight lbs Domestic Partner Domestic Partner Phone Father Name Produce Manager Status 03/11/20 1 CLOSED Fetus Data First Name Last Name Admitted to NICU Weight (g) Sex Living Outcome Pediatric Complications Fetus ID Race Codes Race Delivery Type 3798.83 3 M Full Term 40005 Vaginal Delivery Jamey Calculation Initial Jamey Date [...] Domestic Partner Domestic Partner Phone Father Name Produce Manager Status 03/11/20 1 CLOSED Fetus Data First Name Last Name Admitted to NICU Weight (g) Sex Living Outcome Pediatric Complications Fetus ID Race Codes Race Delivery Type 3203.26 6704 F Full Term [id number] Vaginal Delivery Jamey Calculation Initial Jamey Date [...] Domestic Partner Domestic Partner Phone Father Name Produce Manager Status 03/11/20 23 1 CLOSED Fetus Data First Name Last Name Admitted to NICU Weight (g) Sex Living Outcome Pediatric Complications Fetus ID Race Codes Race Delivery Type 4195.72 6 F Full Term [id number] Vaginal Delivery Jamey Calculation Initial Jamey Date [...]
--- OUTSIDE RECORDS SUMMARY | 2024-09-11 01:21 | XMS_ITS | Clinical Summary ---
Author Organization [facility] Address [address] [place] [address] Dr. 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
--- OUTSIDE RECORDS SUMMARY | 2024-09-11 01:21 | XMS_ITS | Clinical Summary ---
Author Organization [facility] Address [address] [place] [address] Care Team Providers Care Motorcycle Police Name Role Phone Farhan Irene MD Primary Care Provider [phone] Allergies No known active allergies Medications vitamin R19-wfbtlvw B1 (NERVIDOX) 1,000-100 mg/mL solution 0 2 [...] on file Legal Sex Female 12:43 PM PERINATAL NURSE Gender Identity Not on file Sexual Orientation Not on file Obstetrics History Last Filed Vital Signs Vital Sign Reading Time Taken Comments Blood Pressure 130/84 05/04/2022 3:16 PM PERINATAL NURSE Pulse 101 05/04/2022 3:16 PM PERINATAL NURSE Temperature - - Respiratory Rate - - Oxygen Saturation 97% 05/04/2022 3:16 PM PERINATAL NURSE Inhaled Oxygen Concentration - - Weight 143.3 kg (316 lb) 05/04/2022 3:16 PM PERINATAL NURSE Height 162.6 cm (5' 4 ) 05/04/2022 3:16 PM PERINATAL NURSE Body Mass Index 54.24 05/04/2022 3:16 PM PERINATAL NURSE Plan of Treatment Health Maintenance Due Date [...] to prior imaging studies performed at [facility] on 08/08/2015, 08/13/2016 and [...] to prior imaging studies performed at [facility] on08/08/2015, 08/13/2016 and 08/13/2017. [...] Most Recently Relevant to Health Maintenance Insurance [facility] CHOICE PLUS Care Teams Motorcycle Police Relationship Specialty Start Date End Date Farhan Irene MD [address] [address] PCP - General Family Medicine 05/04/22
--- OUTSIDE RECORDS SUMMARY | 2024-09-11 01:21 | XMS_ITS | CONTINUITY OF CARE DOCUMENT ---
Author Name marilin gaston Address Unknown Organization [facility] Address [address] [place] [address] Phone [phone] Care Team Providers Care Material Handler 2Nd Shift Name Role Phone Carrie RUSSO, Jamie Unavailable [phone] JAMIE SAUCEDO MD Unavailable Unavailable MIKEY RODRIGUES MD Unavailable INSURANCE PROVIDERS Payer name Policy type / Coverage type Caroline red alliance party ID AETNA [facility] Other [id number]
--- OUTSIDE RECORDS SUMMARY | 2024-09-11 01:21 | XMS_ITS | Referral Summary ---
Author Organization [facility] Address [address] [place] [address] Care Team Providers Care Director Bioinformatics Name Role Phone Farhan Irene MD Primary Care Provider [phone] Allergies No known active allergies Medications vitamin U40-kogqoqy B1 (NERVIDOX) 1,000-100 mg/mL solution 0 2 [...] on file Legal Sex Female 12:43 PM RIVET THROWER Gender Identity Not on file Sexual Orientation Not on file Last Filed Vital Signs Vital Sign Reading Time Taken Comments Blood Pressure 130/84 05/04/2022 3:16 PM RIVET THROWER Pulse 101 05/04/2022 3:16 PM RIVET THROWER Temperature - - Respiratory Rate - - Oxygen Saturation 97% 05/04/2022 3:16 PM RIVET THROWER Inhaled Oxygen Concentration - - Weight 143.3 kg (316 lb) 05/04/2022 3:16 PM RIVET THROWER Height 162.6 cm (5' 4 ) 05/04/2022 3:16 PM RIVET THROWER Body Mass Index 54.24 05/04/2022 3:16 PM RIVET THROWER Plan of Treatment Not on file Procedures [...] compared to prior imaging studies performed at [facility] on 08/08/2015, [...] compared to prior imaging studies performed at [facility] on08/08/2015, 08/13/2016 [...] Relevant to Health Maintenance Insurance [employer] CHO[employer] PLUS Care Teams Director Bioinformatics Relationship Specialty Start Date End Date Farhan Irene MD [address] [address] PCP - General Family Medicine 05/04/22
--- OUTSIDE RECORDS SUMMARY | 2024-09-11 01:21 | XMS_ITS | Encounter Summary ---
Author Organization [facility] Address 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 Gender Identity Not on file Sexual Orientation Not on file documented as of this encounter Plan of Treatment Not on file documented as of this encounter Procedures Procedure Name Priority Date/Time Associated Diagnosis Comments CBC WITH DIFFERENTIAL Routine 05/08/2005 5:50 AM OFFICE SYSTEM ANALYST CBC WITH DIFFERENTIAL Routine 05/08/2005 5:50 AM OFFICE SYSTEM ANALYST POC , URINE Routine 05/07/2005 6:45 AM OFFICE SYSTEM ANALYST documented in this encounter Results * (ABNORMAL) CBC WITH DIFFERENTIAL (05/08/2005 5:50 AM OFFICE SYSTEM ANALYST) NEUTROPHILS 82(H) 45 - 70 % INTERFAC [...] 0.20 K/uL INTERFACE SYSTEM 05/08/2005 5:50 AM OFFICE SYSTEM ANALYST us Arnaud Rodriguez (Excluded Provider) Elvi RUSSO HEMATOL OGZaid ORDERABLES Final Result INTERFACE SYSTEM Refer to clinic/hospital department * (ABNORMAL) CBC WITH DIFFERENTIAL (05/08/2005 5:50 AM OFFICE SYSTEM ANALYST) WBC 13.6(H) 4.0 - 9.8 K/uL INTERFACE [...] 12.4 fL INTERFACE SYSTEM 05/08/2005 5:50 AM OFFICE SYSTEM ANALYST Result Gwyn Rodriguez (Excluded Provider) Elvi WOOD OGZaid ORDERABLES Final Result Performing Organization Address City/[facility]/ZIP Co de Phone Number INTERFACE SYSTEM Refer to clinic/hospital department * POC , URINE (05/07/2005 6:45 AM OFFICE SYSTEM ANALYST) HCG QUAL URINE Negative Negative INTER FACE SYSTEM SPECIFIC GRAVITY UA 1.020 1.001 - 1.035 INTERFACE SYSTEM 05/07/2005 6:45 AM OFFICE SYSTEM ANALYST Result Gwyn Rodriguez (Excluded Provider) Elvi RUSSO [facility] TESTING Final Result INTERFACE SYSTEM Refer to clinic/hospital department documented in this encounter Visit Diagnoses Diagnosis Uterovaginal prolapse, unspecified- Primary documented in this encounter
[2024-09-11] MEDS: LACTATED RINGERS 1,000 ML 30 ML IV CONT ×2 (07:30→10:54)
--- NOTE | 2024-09-11 07:35 | WPDHPUPDATE1 ---
History and Physical Update Update Date/Time: 09/11/24 07:35 History and Physical has been reviewed, including an updated exam of the patient. There are NO changes in the patient's condition. Risks, benefits, and alternatives have been discussed and questions answered. Patient agrees to proceed with procedure.
[2024-09-11] MEDS: KETOROLAC 15 MG/ML VIAL (*BKC) IV PUSH (07:40)
[2024-09-11] MEDS: ACETAMINOPHEN 500 MG TABLET 1000 MG PO (07:40)
--- NOTE | 2024-09-11 08:01 | WPDANESEPPF ---
Anes - Initial Pre Proc Eval Procedure: Operation Date: 09/11/24 09:00 Proposed Procedures p Excisional Hemorrhoidectomy - Malik Xiao MD Date/Time: 09/11/24 08:01 Surgeon: Malik Xiao MD Pre Op Diagnosis: Internal & External Bleeding Hemorrhoids Patient Data Age: 63 Gender: F Height: 1.63 m Weight: 136.4 kg Allergies Allergy/AdvReac Type Severity Reaction Status Date / Time No Known Allergies Allergy Verified 09/04/24 13:35 Home Medications ?Medication ?Instructions ?Recorded ?Confirmed ?Type cholecalciferol (vitamin D3) 25 3,000 unit PO DAILY 06/16/19 09/04/24 History mcg (1,000 unit) capsule omega-3 fatty acids 1,000 mg 2,000 mg PO DAILY 02/28/21 09/04/24 History capsule (Fish Oil Concentrate) ferrous sulfate 325 mg (65 mg 325 mg PO DAILY 07/19/22 09/04/24 History iron) tablet,delayed release magnesium oxide 500 mg capsule 500 mg PO BID PRN constipation 07/19/22 09/04/24 History omeprazole 20 mg tablet,delayed 20 mg PO BID 02/04/23 09/04/24 History release syringe with needle 3 mL 23 x 1 #20 ea 04/19/23 08/30/24 Rx (BD Eclipse Luer-Eleazar) cyclobenzaprine 10 mg tablet 10 mg PO TID PRN muscle spasm #90 09/03/23 09/04/24 Rx tabs cyanocobalamin (vitamin B-12) 1,000 mcg subcut DIRECTED 04/06/24 09/04/24 History 1,000 mcg/mL injection kit fluticasone 500 mcg-salmeterol 50 See Rx Instructions .Route 04/06/24 09/04/24 History mcg/dose blistr powdr for .COMPLEX PRN Shortness Of Breath inhalation (Advair Diskus) Or Wheezing levothyroxine 100 mcg tablet 100 mcg PO . q.a.m. #90 tabs 04/07/24 09/04/24 Rx duloxetine 60 mg capsule,delayed 60 mg PO DAILY #90 caps 06/10/24 09/04/24 Rx release zolpidem 10 mg tablet (Ambien) 10 mg PO QHS PRN insomnia #30 tabs 08/11/24 09/04/24 Rx tramadol 50 mg tablet 50 mg PO Q6H PRN pain #15 tabs 08/19/24 09/04/24 Rx hydrocortisone 2.5 % topical cream 1 applic RECTAL BID PRN 08/23/24 09/04/24 Rx with perineal applicator hemorrhoids #1 g (Anusol-HC) lidocaine 5 % topical cream 1 applic topical BID PRN pain #30 08/23/24 09/04/24 Rx grams oxycodone-acetaminophen 5 mg-325 1 tablet PO Q4H PRN pain #30 tabs 08/23/24 09/04/24 Rx mg tablet (Percocet) Patient hx anesthesia problems: none Family hx anesthesia problems: none Results Review: All pre-operative results and documents have been reviewed as part of the pre-operative evaluation. [facility] Past Medical History Medical History Rectal bleeding Rectal pain Rectal mass Neck pain Benign essential tremor Weakness of left upper extremity (~05/2023) EKG on 08/05/2023 with sinus rhythm with nonspecific ST T wave changes unchanged from previous EKG 11/08/2022. Migraine headache without aura (05/31/23) MRI of the brain on 12/24/2023 unremarkable. Acute non-recurrent maxillary sinusitis Pharyngitis Acute bronchitis Abnormal fasting glucose (01/16/22) fasting glucose 106 with hemoglobin A1c 5.7 on 01/16/2022. fasting glucose 93 with hemoglobin A1c 5.4 on 09/18/2022. Glucose 88 with hemoglobin A1c 5.7 on 02/04/2023. glucose 102 with hemoglobin A1c 4.8 on 07/29/2023. glucose 93 with hemoglobin A1c 5.7 and GFR 78 on 03/09/2024. Nasal folliculitis Arthritis History of tobacco abuse Dizziness Chest pain Exercise stress test on 02/08/2022 was negative for ischemia. Transesophageal echocardiogram on 02/08/2022 with LVH and grade 1 diastolic dysfunction. History of COVID-19 Dyspnea Normal pulmonary function test on 02/02/2022. Cough Morbid obesity with BMI of 50.0-59.9, adult Screening for diabetes mellitus Muscle cramps Magnesium 2.0 on 03/09/2024. Urinary frequency Fatigue TSH 0.83, free T4 1.3, hemoglobin 15.5 on 03/09/2024. Anemia Left shoulder pain Right wrist pain COVID-19 long hauler manifesting chronic dyspnea (~05/2021) Aspiration pneumonia (07/15/21) Syncope and collapse (07/15/21) EEG on 08/07/2021 was normal. No seizure activity. MRI of the brain on 08/08/2021 was normal. COVID-19 positive rapid test 05/12/2021 Hyperlipidemia total cholesterol 208, HDL 66, triglycerides 134, LDL 117 on 01/16/2022. Cholesterol 223, triglycerides 95, HDL 80, LDL 123 with ratio 2.8 on 02/04/2023. Cholesterol 210, triglycerides 162, HDL 63, LDL 119 with ratio 3.3 on 03/09/2024. Abnormal bowel habits Lower abdominal pain Upper abdominal pain Tobacco use disorder, continuous Patient quit smoking 2021. Peptic ulcer disease History of peptic ulcer disease with normal EGD on 03/15/2021 with 4 cm hiatal hernia. Biopsies obtained Polyp of colon (03/15/21) 12 mm polyp of the cecum on colonoscopy with Dr. Castillo 03/15/2021 with recheck in 3 years. External hemorrhoids noted. 7 mm flat Tubulovillous adenoma polyp ascending colon on colonoscopy 04/20/2024 with recheck in 7 years. Breast cancer screening by mammogram Normal mammogram 10/03/2023. Dysphagia modified barium swallow was normal 08/03/2021 Abdominal pain Iron deficiency anemia, unspecified Labs on 02/11/2021 with iron 34, 7% saturation, and ferritin 4 with hemoglobin 11.1. Iron low at 34 with 7% saturation and ferritin 6 on 01/16/2022. iron 245 with 48% saturation and ferritin 9 on 09/18/2022. Iron 57 with 13% saturation and ferritin 15 with hemoglobin 14.6 on 02/04/2023. Iron 49 with 12% saturation and ferritin 14 with hemoglobin 15.1 on 07/29/2023. Iron 84 with 23% saturation and ferritin 24 with hemoglobin 15.5 on 03/09/2024. Insomnia Irritable bowel syndrome with constipation and diarrhea Hypersomnia Chronic depression Fibromyalgia CK 113, sedimentation rate of 9 on 09/18/2022. Hypothyroidism, unspecified TSH 5.03 with free T4 1.0 on 01/16/2022. TSH 4.21 with free T4 1.1 on 09/18/2022. He TSH 1.19 with free T4 1.0 on 02/04/2023. TSH 0.83, free T4 at 1.3 on 03/09/2024. Surgical History Surgical History H/O: hysterectomy History of hand surgery History of tonsillectomy History of cholecystectomy History of appendectomy Family History Family History Father Diabetes mellitus, Onset Age: 79 Cerebrovascular accident, Onset Age: 79 Alcoholism Cancer Hypertension Heart disease Sibling Family history of suicide, Onset Age: 42 Alcoholism Cancer Hypertension Depression Heart disease Cerebrovascular accident Thyroid disorder Mother Acute myocardial infarction, Onset Age: 79 Depression Thyroid disorder Hypertension Heart disease Grandparent Acute myocardial infarction, Onset Age: 80 Social History Social History Years smoked: 40 Smoking status: Former smoker Tobacco type: cigarettes Smoking end date: 05/20/21 Additional smoking assessment comments: quit 2 year ago Alcohol intake: never Alcohol use details: 2 per month Substance use: never Substance use type: does not use Do You Feel Safe in your Home?: Yes Lack of Transportation: No Lack of Food: Never True Current Housing: I Have Housing Concerned About Future Housing: No Difficulty Paying Gas/Electric Bills: No Difficulty Paying for Meds: No Currently Unemployed: No Education: High School Diploma/GED Difficulty w/ Childcare or Family Care: No Living arrangements: with family Occupation/Education: occupation 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 Informed Consent: The patient's anesthetic plan and its attendant risks and benefits were discussed with the patient/family/POA. Questions were solicited and answers provided to the satisfaction of the patient/family/POA.
[2024-09-11] MEDS: ceFAZolin 3 GM/D5W 100 ML 100 ML IVPB (09:09)
[2024-09-11] MEDS: GELATIN SPONGE SZ 100 1 EACH TOPICAL (09:33)
[2024-09-11] MEDS: BUPivacaine HCL 0.5% 10 ML AMP 30 ML INFILTRATE (10:15)
[2024-09-11] MEDS: LIDO 1%/EPINEPHRINE 1:100,000 20 ML VIAL 30 ML INFILTRATE (10:17)
[2024-09-11] MEDS: ONDANSETRON INJ 4 MG/2 ML VIAL IV PUSH (10:40)
[2024-09-11] MEDS: diphenhydrAMINE HCl INJ 50 MG/ML VIAL 25 MG IV PUSH (10:45)
--- NOTE | 2024-09-11 11:32 | P.OP_ITS ---
Procedure Note - Detailed Date of Procedure 09/11/24 Pre-op Diagnosis Internal & External Bleeding Hemorrhoids Post-op Diagnosis Other (Symptomatic combined internal-external hemorrhoids x2, distal anal canal polyp x1) Procedure Performed Anal rectal evaluation under anesthesia, excisional hemorrhoidectomy x2, anal polypectomy x1. Surgeon Malik Xiao MD Anesthesia General Indications Patient is a 63-year-old female who was admitted to the hospital with some rectal bleeding and evidence of very inflamed and swollen hemorrhoids. There were nonthrombosed at that time. The acute pain has resolved but she still has intermittent pain and intermittent bleeding from a combined internal and external hemorrhoids. She presents now for an elective excisional hemorrhoidectomy. Findings Patient had a large combined internal and external hemorrhoid at the 6 to 7 o'clock position posteriorly with the patient in lithotomy. Also had a smaller mostly external hemorrhoid at the 12 o'clock position in the anterior midline. In the distal anal canal just above the dentate line at the 6 o'clock position at the posterior midline a somewhat pedunculated 1cm anal polyp was noted without bleeding. Description of Procedure After informed consent was obtained patient brought to the operating room she was placed under general endotracheal anesthesia on the operating table. She was then placed in high lithotomy position with the legs elevated on high Yellofin stirrups. The perianal region was then prepped and draped usual sterile fashion. A time-out was then performed correctly identifying the patient as well as procedure to be performed. She was given perioperative IV antibiotics. I 1st started by gently dilated the anal sphincters a well lubricated anal speculum. I evacuated the remaining portion of the fleets enema in the rectal vault. This allowed me to see a anal polyp just above the dentate line posteriorly at the 6 o'clock position in the posterior midline with the patient in lithotomy. He also had more of a external hemorrhoid at 12:00 p.m. position anterior midline and then a combined internal-external hemorrhoid at the 7 o'clock position posteriorly. I could see distal rectum and there is no evidence of polyps in this area. I then proceeded to perform the anal polypectomy. 1% lidocaine mixed with 0.5% Marcaine was injected around the base of the polyp which was somewhat pedunculated. I then used a scalpel to circumferentially excise out the polyp at the base of its stalk. The polyp was then sent to pathology labeled as anal polypectomy 6 o'clock position. I then closed the mucosal defect utilizing a 2-0 chromic suture placed in a figure- eight fashion. I then turned my attention toward excising out the large combined internal and external hemorrhoid at the 7 o'clock position. The same local anesthetic mixture was then injected around the hemorrhoid to lift the mucosa off of the anal sphincters. I then made a incision on either side the hemorrhoid tissue extending this just above the dentate line extending it all the way out onto the perianal skin. Electrocautery was then used to completely excise off the hemorrhoid tissue taking great care to visualize and palpate the internal sphincter muscles and not injured these during the excision. Once the tissue had been adequately sized off it was sent to pathology labeled as hemorrhoid 7 o'clock position. Hemostasis in the incision was then achieved electrocautery. This incision was then closed starting with a 2-0 chromic suture starting at the apex of the incision above the dentate line and running in a locking suture fashion all the way down to the anal verge. I then transition to using 3-0 Vicryl suture to approximate the edges of the perianal skin in a running locking fashion. Lastly I then excised off the mostly external hemorrhoid tissue at the 12 o'clock position the anterior midline. Again the same local anesthetic mixture was then used to inject underneath the tissue to lifted off the anal sphincter muscles. A scalp was then used to incise on either side of the hemorrhoid tissue and then electrocautery was used to completely excise off the hemorrhoid tissue. Again care was taken not to injure the internal sphincter muscle fibers underneath. The specimen was passed off table sent to pathology labeled as hemorrhoid 12 o'clock position. The incision was then closed utilizing 2-0 chromic suture to approximate the edges of the wound inside the anal opening. Once I got to the anal verge I transition to using 3-0 Vicryl suture on the perianal skin placed in a running locking fashion to completely close incision. I then irrigated out the anal canal sterile saline solution. Hemostasis was good on all the incisions. A lidocaine jelly soaked piece of Gelfoam was then placed into the anal canal for an anal packing. I then injected remaining portion of the local anesthetic mixture in the perianal skin around the anal opening for perianal block and then I injected additional local anesthetic mixture bilaterally for pudendal nerve block. The area was then cleaned and then fluffed 4x4 gauze ABD pads and disposable underwear was used for final dressing. The patient tolerated the procedure well no complications. All sponges, needles, and instrument counts were correct at the end procedure. EBL was _30__cc. The patient was awakened and taken to recovery in stable and satisfactory condition. Implants None Estimated Blood Loss 30 Drains No Packing Yes (Gelfoam packing anal canal) Pathology Yes (Hemorrhoids x2 and anal canal polyp sent to pathology separately) Complications No immediate complications Condition Stable Disposition PACU [facility] Billing Surgery - Charge Forward: Surgery Billing
== END 2024-09-11 12:17 | disposition home or self-care (01) ==
PROVIDERS: PCP Family Medicine; Visit Provider Surgery
PROC: (CPT 46260; principal; 2024-09-11 09:00)
DX: K64.8 Other hemorrhoids (principal); K64.4 Residual hemorrhoidal skin tags; K62.0 Anal polyp; E78.5 Hyperlipidemia, unspecified; E03.9 Hypothyroidism, unspecified; Z87.891 Personal history of nicotine dependence; E66.01 Morbid (severe) obesity due to excess calories; Z68.43 Body mass index [BMI] 50.0-59.9, adult
CPT/HCPCS: 46260; 46922; 88304; 88305; A9270; J0690; J1100; J1200; J1885; J2004; J2405; J2704; J3010; J7120

== ENCOUNTER 2025-01-27 10:55 | Outpatient (CLI) | payer OTHER, SELFPAY ==
--- NOTE | ~2025-01-27 | MM_ITS ---
EXAMINATION: MM screening tosha BI w anna HISTORY: Screening TECHNIQUE: Craniocaudal and mediolateral oblique 3-D tomosynthesis images were obtained and synthetic 2-D images were generated. CAD analysis was submitted and interpreted. COMPARISON: 10/03/2023 BREAST PARENCHYMAL COMPOSITION: The breasts are almost entirely fatty. FINDINGS: There is no evidence of suspicious mass, calcification, or architectural distortion to suggest malignancy in either breast. IMPRESSION: 1. No mammographic evidence of malignancy. 2. Recommend routine screening mammography in one year. BI-RADS Category 1: Negative Reviewed, dictated and finalized at location B.
== END 2025-01-27 10:56 | disposition home or self-care (01) ==
PROVIDERS: PCP Family Medicine; Visit Provider Nurse Practitioner
DX: Z12.31 Encounter for screening mammogram for malignant neoplasm of breast (principal)
CPT/HCPCS: 77063; 77067

== ENCOUNTER 2025-03-09 12:36 | Outpatient (CLI) | payer OTHER, SELFPAY ==
--- NOTE | ~2025-03-09 | XR_ITS ---
Examination: XR knee LT min 4V, XR ankle LT min 3V Clinical History: M25.562 - Pain in left knee, WORSENING CHRONIC PAIN Comparison: Left knee radiographs 11/01/2021 Technique: 4 views left knee 4 views left ankle Findings/impression: Left knee: No acute findings- 1. No fracture, dislocation, or effusion left knee. 2. Chronic suprapatellar joint bodies. 3. Lateral patellar degenerative subluxation. 4. Mild medial and lateral compartment joint space narrowing. 5. Moderate patellofemoral compartment joint space narrowing, with marginal osteophytes. Left ankle: No acute findings- 1. No fracture or dislocation left ankle. 2. Mild ankle joint degenerative changes. 3. Calcaneal enthesophyte at plantar fascia and Achilles. 4. Mild midfoot degenerative changes. Reviewed, dictated and finalized at location R.
--- OUTSIDE RECORDS SUMMARY | 2025-03-09 15:17 | XMS_ITS | Encounter Summary ---
Author Organization [facility] Address [address] [place] [address] Care Team Providers Care Stallion Manager Name Role Phone Unavailable Primary Care [...] on file Legal Sex Female 4:51 AM SAP BASIS ARCHITECT Gender Identity Not on file Sexual Orientation Not on file documented as of this encounter Plan of Treatment Not on file documented as of this encounter Procedures Procedure Name Priority Date/Time Associated Diagnosis Comments CBC WITH DIFFERENTIAL Routine 05/08/2005 5:50 AM SAP BASIS ARCHITECT CBC WITH DIFFERENTIAL Routine 05/08/2005 5:50 AM SAP BASIS ARCHITECT POC , URINE Routine 05/07/2005 6:45 AM SAP BASIS ARCHITECT documented in this encounter Results * (ABNORMAL) CBC WITH DIFFERENTIAL (05/08/2005 5:50 AM SAP BASIS ARCHITECT) NEUTROPHILS 82(H) 45 - 70 % INTERFAC [...] 0.20 K/uL INTERFACE SYSTEM 05/08/2005 5:50 AM SAP BASIS ARCHITECT us Arnaud Rodriguez (Excluded Provider) Elvi RUSSO HEMATOL OGZaid ORDERABLES Final Result INTERFACE SYSTEM Refer to clinic/hospital department * (ABNORMAL) CBC WITH DIFFERENTIAL (05/08/2005 5:50 AM SAP BASIS ARCHITECT) WBC 13.6(H) 4.0 - 9.8 K/uL INTERFACE [...] 12.4 fL INTERFACE SYSTEM 05/08/2005 5:50 AM SAP BASIS ARCHITECT Result Gwyn Rodriguez (Excluded Provider) Elvi WOOD OGZaid ORDERABLES Final Result Performing Organization Address City/[facility]/ZIP Co de Phone Number INTERFACE SYSTEM Refer to clinic/hospital department * POC , URINE (05/07/2005 6:45 AM SAP BASIS ARCHITECT) HCG QUAL URINE Negative Negative INTER FACE SYSTEM SPECIFIC GRAVITY UA 1.020 1.001 - 1.035 INTERFACE SYSTEM 05/07/2005 6:45 AM SAP BASIS ARCHITECT Result Gwyn Rodriguez (Excluded Provider) Elvi RUSSO [facility] TESTING Final Result INTERFACE SYSTEM Refer to clinic/hospital department documented in this encounter Visit Diagnoses Diagnosis Uterovaginal prolapse, unspecified- Primary documented in this encounter
--- OUTSIDE RECORDS SUMMARY | 2025-03-09 15:17 | XMS_ITS | Clinical Summary ---
Author Organization [facility] Address [address] [place] [address] Dr. 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
--- OUTSIDE RECORDS SUMMARY | 2025-03-09 15:17 | XMS_ITS | Data Portability ---
Author Organization [facility] [place] Address [address] [place] [address] [place] [address] Care Team Providers Care Retail Department Reset Name Role Phone MIKEY RODRIGUES Primary Care Provider [phone] Assessment Encounter Date Assessment Date Assessment LastModified by Organization Details LastModified Time 03/11/2023 03/11/2023 Annual gynecological exam performed. Patient will come back in a year unless there are new symptoms. [email or web address] Not available 03/11/2023 09:47:23 Plan of Treatment Reminders Order Date Submit Date Provider Last Modified By Organization Details Last Modified Time Details Appointments None record ed. Lab None record ed. Referral None record ed. Procedures None record ed. Surgeries None record ed. Imaging None record ed. Medication Orders None record ed. Patient TargetsNo targets recorded. Patient InstructionsNo instructions recorded. Reason for Referral None Reported. Results Created Date Observation Date Name Description Value Unit Range Abnormal Flag Note LastModifiedBy Organization Detail LastModifiedTime 01/28/20 25 01/27/2025 MAMMO , scree shauna, digit al, bilat eral No observ ation record ed. [email or web address] [facility] [address], [place], [address], 02/03/2025 12:46:03 Result Notes None recorded. Procedures Surgical History Date Name Laterality Status Provider Name and Address Organization Details Recorded Time 023 Date of Last Pap Smear completed Elena Luevano [facility] 03/11/2023 09:50:02 005 hysterectomy completed ADI Duckworth [address], [place], [address], [place] [facility] 03/11/2023 11:04:47 990 cholecystectomy completed Elena Luevano [facility] 03/11/2023 13:45:14 979 Appendectomy completed Elena Luevano [facility] 03/11/2023 13:45:28 Imaging Results None recorded. [...] Body mass index (BMI) Body weight Systolic And Diastolic Provider Name and Address Organization Details Last Updated DateTime 03/11/2023 163.2 cm 53.1 kg/m2 312032.82 g 127/79 mm[Hg] Elena Luevano [facility] 03/11/2023 09:48:54 Social History Question Answer Notes LastModified by Organizat ion Details LastModified Time Tobacco Smoking Status Former Smoker Elena Luevano [facility], [facility] 03/11/2023 13:44:38 Are You Blind Or Do You Have Difficulty Seeing? No [email or web address] Information not available 03/11/2023 What Is Your Level Of Caffeine Consumption? Occasional [email or web address] Information not available 03/11/2023 In The 14 Days Before Symptom Onset, Have You Had Close Contact With A Laboratory-confir med COVID-19 While That Case Was Ill? No [email or web address] Information not available 03/11/2023 In The 14 Days Before Symptom Onset, Have You Had Close Contact With A Person Who Is Under Investigation For COVID-19 While That Person Was Ill? No [email or web address] Information not available 03/11/2023 Have You Been To An Area Known To Be High Risk For COVID-19? No [email or web address] Information not available 03/11/2023 Are You Deaf Or Do You Have Serious Difficulty Hearing? No [email or web address] Information not available 03/11/2023 What Type Of Diet Are You Following? REGULAR [email or web address] Information not available 03/11/2023 Have You Ever Been Counseled For Unhealthy Alcohol Use? No Information not available 03/11/2023 Do You Use Your Seat Belt Or Car Seat Routinely? Yes [email or web address] Information not available 03/11/2023 Do You Have Smoke And Carbon Monoxide Detectors In Your Home? Yes [email or web address] Information not available 03/11/2023 Do You Use Sunscreen Routinely? Yes [email or web address] Information not available 03/11/2023 Has Tobacco Cessation Counseling Been Provided? No [email or web address] Information not available 03/11/2023 Do You Have Difficulty Walking Or Climbing Stairs? No [email or web address] Information not available 03/11/2023 Sex: Unknown Functional Status Question Answer Note LastModified by Organizat ion Details LastModified Time Do you use any illicit or recreational drugs? No [email or web address] Information not available 03/11/2023 Do you or have you ever used any other forms of tobacco or nicotine? No [email or web address] Information not available 03/11/2023 What is your level of alcohol consumption? Occasional [email or web address] Information not available 03/11/2023 Are you able to walk independently without assistance or assistive devices? YESWOREST [email or web address] Information not available 03/11/2023 Are you able to care for yourself independently? Yes [email or web address] Information not available 03/11/2023 Do you have difficulty dressing, bathing, grooming, or toileting? No [email or web address] Information not available 03/11/2023 What is your exercise level? Occasional [email or web address] Information not available 03/11/2023 Mental Status Question Answer Note LastModified by Organization D etails LastModified Time Do you feel stressed (tense, restless, nervous, or anxious, or unable to sleep at night)? [id number] [email or web address] Information not available 03/11/2023 Family History Relationship Description Onset Age of this Age Resolved Age Notes LastModified by Organization Details LastModified Time Sister Malignant neoplasm of breast 70 [email or web address] Not available 03/11 13:41:05 Sister Disorder of thyroid gland [email or web address] Not available 03/11 13:43:35 Paternal Aunt Malignant neoplasm of breast [email or web address] Not available 03/11 13:41:11 Paternal Aunt Malignant neoplasm of ovary [email or web address] Not available 03/11 13:43:16 Mother Heart disease [email or web address] Not available 03/11 13:41:46 Mother Hypertensive disorder [email or web address] Not available 03/11 13:43:02 Mother Disorder of thyroid gland [email or web address] Not available 03/11 13:43:35 Father Heart disease [email or web address] Not available 03/11 13:41:46 Father Diabetes mellitus [email or web address] Not available 03/11 13:41:59 Father Hypercholest erolemia agwwusrq19 Not available 03/11 13:42:31 Father Hypertensive disorder [email or web address] Not available 03/11 13:43:02 Maternal Grandfather Heart disease [email or web address] Not available 03/11 13:41:46 Maternal Grandfather Hypercholest erolemia [email or web address] Not available 03/11 13:42:31 Maternal Grandfather Hypertensive disorder Not available 03/11 13:43:02 Brother Heart disease [email or web address] Not available 03/11 13:41:46 Brother Hypercholest erolemia [email or web address] Not available 03/11 13:42:31 Brother Hypertensive disorder [email or web address] Not available 03/11 13:43:02 Paternal Uncle Heart disease [email or web address] Not available 03/11 13:41:46 Medical History Condition Response Allergies (Food, seasonal, environmental ) Y Other Y Breast Cancer N Drug/Latex Allergies/Reactions N Blood Transfusion N Dermatologic Disorders N Lung Disease N [...] Diagnosis SNOMED-CT Code Diagnosis ICD10 Code Diagnosis IMO Codes Diagnosis Note [id number] ADI Duckworth [place] [address] [address] 03/11/2023 09:07:42 03/11/2023 11:23:12 Gynecologic examination 66369988 Z01.419 WWEhx of hyst for non-cancer ous indication spaps d/c'd unless otherwise indicatedm ammogram scheduled for 05/2023 per ptcolonosc opy due next 2023UTD with PCPRTC in 1 yr or sooner if needed Take Calcium with Vitamin D daily.Do monthly self breast exams.It is advised to get annual flu shot in the fall and she could obtain at [facility] or [facility] care clinic. If you haven't received the [...] Recorded Advance Directives Directive None Recorded Payers Insurance Date Sequence Insurance Name Policy Number Policy Luu Covered Member ID Luu Member ID Guarantor Name 02/07/2025 1 [employer] (MEDICARE REPLACEMENT/ ADVANTAGE - PPO) [id number] October Michael Mcgovern [id number] 21 October Froilan Notes Date Note Type Note Provider Name and Address Organization Details Recorded Time 3 text/html Annual Sole Splitter Post-MenopausalReported by PatientGenitourinary symptomsFor menopausal symptoms, patient reportsno menopausal symptomsandnormal vaginal lubrication. For vaginal bleeding, patient reportshistory of menopause having occurredandno history of post menopausal bleeding. For urinary symptoms, patient reportsno hematuria,no incontinence,no nocturia, andno urinary frequency. For vulva, patient reportsno genital lesionandno vulvar atrophy. For vagina, patient reportsnormal vaginal dischargeandno vaginal atrophy.Breast symptomsFor breast, patient reportsno breast lump,no nipple discharge, andno breast pain.Psychological symptomsFor sexual complaints, patient reportsno sexual complaints. For psychological symptoms, patient reportsno depressionandno anxiety.Preventative measuresFor preventive measures, patient reportsencourage regular mammograms starting age 40,encourage self breast examination,encourage regular exercise,encourage no tobacco use,needs to schedule mammogram, andhistory of recent colonoscopy.hx of hyst in 2004 for prolapse, non-cancerous indicationsno hx of abnormal papsmammogram last 2018colonoscopy last 2020 (polyps, told to repeat in 2023) ADI Duckworth [address], [place], [address], [facility] 03/11/2023 11:05:07 OBGyn Episode Ob Episode Information Episode Created Date Number of Fetuses Patient Bloodtype Patient rh Status Prepregnancy Weight lbs Domestic Partner Domestic Partner Phone Father Name House Fellow Status 03/11/20 1 CLOSED Fetus Data First Name Last Name Admitted to NICU Weight (g) Sex Living Outcome Pediatric Complications Fetus ID Race Codes Race Delivery Type 3798.83 3 M Full Term [id number] Vaginal Delivery Jamey Calculation Initial Jaemy Date Initial Exam Date Initial Exam Provider [...] Domestic Partner Domestic Partner Phone Father Name House Fellow Status 03/11/20 1 CLOSED Fetus Data First Name Last Name Admitted to NICU Weight (g) Sex Living Outcome Pediatric Complications Fetus ID Race Codes Race Delivery Type 3203.26 6704 F Full Term 70626 Vaginal Delivery Jamey Calculation Initial Jamey Date [...] Domestic Partner Domestic Partner Phone Father Name House Fellow Status 03/11/20 23 1 CLOSED Fetus Data First Name Last Name Admitted to NICU Weight (g) Sex Living Outcome Pediatric Complications Fetus ID Race Codes Race Delivery Type 4195.72 6 F Full Term [id number] Vaginal Delivery Jamey Calculation Initial Jamey Date [...] Post Complications Tubal Sterilization Discharge Date Comments 0 42 Discharge Information Feeding Method Contraceptive Method Maternal HG B and HCT Levels
--- OUTSIDE RECORDS SUMMARY | 2025-03-09 15:17 | XMS_ITS | Clinical Summary ---
Author Organization [facility] Address [address] [place] [address] Care Team Providers Care Coronary Care Unit Nurse Name Role Phone Farhan Irene MD Primary Care Provider [phone] Allergies No known active allergies Medications vitamin U63-keaimsq B1 (NERVIDOX) 1,000-100 mg/mL solution 0 2 [...] on file Legal Sex Female 12:43 PM SENIOR PHYSICIAN Gender Identity Not on file Sexual Orientation Not on file Obstetrics History Last Filed Vital Signs Vital Sign Reading Time Taken Comments Blood Pressure 130/84 05/04/2022 3:16 PM SENIOR PHYSICIAN Pulse 101 05/04/2022 3:16 PM SENIOR PHYSICIAN Temperature - - Respiratory Rate - - Oxygen Saturation 97% 05/04/2022 3:16 PM SENIOR PHYSICIAN Inhaled Oxygen Concentration - - Weight 143.3 kg (316 lb) 05/04/2022 3:16 PM SENIOR PHYSICIAN Height 162.6 cm (5' 4) 05/04/2022 3:16 PM SENIOR PHYSICIAN Body Mass Index 54.24 05/04/2022 3:16 PM SENIOR PHYSICIAN Plan of Treatment Health Maintenance Due Date Last Done Comments Depression Screening 1960 Hepatitis C Screening 1962 DTaP/Tdap/Td Vaccine (1 - Tdap) 1973 Hepatitis B Screening 1980 Regular Well Visit/Exam 18-64 1980 Zoster Vaccine (1 of 2) 2012 Breast Cancer Screening-Mammogram 08/13/2019 08/12/2018, 08/13/2017, 08/13/2016, Additional history exists Covid-19 Vaccine ( season) 2025 03/29/2022, 04/09/2021, 07/22/2020 Influenza Vaccine (#1) 2025 2, 04/09/2021, 03/21/2020 Colon Cancer Screening-Colonoscopy 12/11/2025 12/12/2015 [...] compared to prior imaging studies performed at [facility] on 08/08/2015, 08/13/2016 [...] compared to prior imaging studies performed at [facility] on08/08/2015, 08/13/2016 and [...] Most Recently Relevant to Health Maintenance Insurance [facility] CHOICE PLUS Care Teams Coronary Care Unit Nurse Relationship Specialty Start Date End Date Farhan Irene MD [address] [address] PCP - General Family Medicine 05/04/22
== END 2025-03-09 12:37 | disposition home or self-care (01) ==
PROVIDERS: PCP Family Medicine; Visit Provider Family Medicine
DX: M19.072 Primary osteoarthritis, left ankle and foot (principal); M77.32 Calcaneal spur, left foot; M23.42 Loose body in knee, left knee
CPT/HCPCS: 73564; 73610